=== PATIENT | female | born 1975 | race Caucasian/White ===

== ENCOUNTER 2016-05-20 08:58 | Day surgery (SDC) | payer OTHER ==
[~2016-05-20] VITALS: Ht 172.7 cm; Wt 98.0 kg
[~2016-05-20 08:58] MED LIST: 0.9% Sodium Chloride 1,000 ML IV SCH; ALPR1TAB7 PO; ARIP5TAB13 PO; BUSP15TA3 PO; CHOL200025 PO; CITA20TA PO; CITA40TA13 PO; DULO60CA42 PO; HYDR-4003 PO; IBUP-1827 PO; LAMO100T PO; LOVA20TA PO; NEOM10SO8 AFFECT_EAR; OMEP20CA11 PO; OMEP20TA24 PO; PRAM0.5T PO; PRAM0.5T3 PO; Sodium Chloride LOK Flush 10 mL Syringe IV PRN; fentaNYL-PF 50 mCg/mL 2 mL Inj IVPUSH PRN
[2016-05-20 09:32] VITALS: BP 128/84; PULSE 80; RESP 18; O2SAT 98
[2016-05-20] MEDS ORDERED: GABA600T2 PO (09:45)
[2016-05-20] MEDS ORDERED: ARIP10TA14 PO (09:45)
[2016-05-20 10:17] VITALS: BP 97/54; PULSE 75; RESP 16; O2SAT 98
[2016-05-20 10:27] VITALS: BP 116/69; PULSE 76; RESP 16; O2SAT 97
--- NOTE | 2016-05-20 10:41 | ENDO ---
[address] [address] ENDOSCOPY PROCEDURE PATIENT: ASHLEY FAY : 1975 MR#: [id number] ADMIT: 05/20/2016 JOB ID: [id number] DATE OF SERVICE: 05/20/2016 PROCEDURE PERFORMED: Colonoscopy. INDICATIONS: Patient with a personal history of colon polyps, as well as the patient has a family history of colon cancer, which includes her father who in his mid 40s from color cancer, as well as two paternal aunts who had colon cancer. ASA CLASSIFICATION: The patient's ASA classification is I. MALLAMPATI SCORE: Mallampati score was 2. MEDICATIONS: 1. Versed 4 mg. 2. Fentanyl 100 mcg. INSTRUMENT USED: PCF-H180AL. PREPARATION QUALITY: Fair. PROCEDURE DETAILS: After informed consent was obtained, the patient was brought into the GI suite, where she was placed on oxygen via nasal cannula and monitored with continuous pulse oximeter, telemetry, and blood pressure monitoring. A time-out was performed. Then, she was placed in the left lateral decubitus position and medications were administered for sedation. Digital rectal exam was performed which was unremarkable. The colonoscope was then inserted into the rectum and advanced under direct visualization to the cecum, which was identified by the presence of the ileocecal valve and appendiceal orifice. Once the cecum was reached, the colonoscope was withdrawn back into the rectum, as the mucosa and lumen were examined. In the rectum, retroflexion was performed. Following retroflexion, remaining air in the rectum was suctioned, and procedure was completed. FINDINGS: 1. Scattered diverticula were seen throughout the sigmoid colon. 2. Otherwise normal exam from rectum to cecum. IMPRESSION: Sigmoid diverticulosis. RECOMMENDATIONS: Repeat colonoscopy in five years, sooner if symptoms should dictate. COMPLICATIONS: None. ESTIMATED BLOOD LOSS: Zero.
[2016-07-28] MEDS ORDERED: CHOL200047 PO (14:55)
[2016-07-28] MEDS ORDERED: BUSP15TA3 PO (14:55)
== END 2016-05-20 23:59 | disposition home or self-care (01) ==
LOC: END 08:58
PROVIDERS: ATTEND Internal Medicine Gastroenterology
DX: Z12.11 Encounter for screening for malignant neoplasm of colon (principal); Z86.010 Personal history of colon polyps; K57.30 Diverticulosis of large intestine without perforation or abscess without bleeding; G47.33 Obstructive sleep apnea (adult) (pediatric); G25.81 Restless legs syndrome; G89.29 Other chronic pain
CPT/HCPCS: G0105; G0500; J2250; J7030

== ENCOUNTER 2016-06-29 16:57 | Observation (INO) | payer OTHER ==
[~2016-06-29] VITALS: Ht 172.7 cm; Wt 90.7 kg
[~2016-06-29 16:57] MED LIST changes: -0.9% Sodium Chloride 1,000 ML IV SCH; +ARIP10TA14 PO; -ARIP5TAB13 PO; -CITA20TA PO; +GABA600T2 PO; -NEOM10SO8 AFFECT_EAR; -OMEP20CA11 PO; -PRAM0.5T PO; -Sodium Chloride LOK Flush 10 mL Syringe IV PRN; -fentaNYL-PF 50 mCg/mL 2 mL Inj IVPUSH PRN
[2016-06-29 17:02] VITALS: BP 133/80; PULSE 87; RESP 16; O2SAT 99
[2016-06-29 18:07] LABS: BASOPHILS % (AUTO) 0.3 % (0-3); EOSINOPHILS % (AUTO) 0.4 % (0-5); MONOCYTES % (AUTO) 7.3 % (4-12); Mean Corpuscular Hemoglobin 29.6 pg (27.0-35.0); Mean Corpuscular Volume 89.3 fL (81-100); NEUTROPHILS % (AUTO) 62.4 % (40-74); Platelet Count 237 bil/L (150-400)
--- NOTE | 2016-06-29 21:01 | ED.REPORT ---
HPI-Rash / Abscess Date of Service Jun 29, 2016 ED Provider: Vaibhav Braden MD 41 year old female presents to the ER accompanied by her mother referred from the [facility] complaining of rectal pain onset a week ago. Symptoms initially felt similar to a bruise, but have worsened since onset with and area of induration that developed 5 days ago. Patient was discharged from the hospital in [place] yesterday where she received a CT that revealed a perirectal abscess, and she has been vomiting since her discharge, which she attributes to an antibiotic allergy. Earlier today she was seen by Dr. Peña at the residency clinic. Last meal was yesterday afternoon. Nursing Notes Stated Complaint: ABCESS, HEADACHE- SENT FROM [facility] Chief Complaint: Skin Rash/Abscess Nursing Notes Reviewed: Yes Allergies: Coded Allergies: erythromycin base (Verified Allergy, Severe, Anaphylaxis, 05/19/16) venom-honey bee (Verified Allergy, Severe, Anaphylaxis, 05/19/16) Penicillins (Verified Allergy, Intermediate, Anaphylaxis, 05/19/16) Sulfa (Sulfonamide Antibiotics) (Verified Allergy, Unknown, 05/19/16) rash, vomiting Uncoded Allergies: MISC (Allergy, Unknown, all penicillin derived abx, 06/29/16) Scheduled Aripiprazole (Abilify) 10 Mg Tablet 10 MG PO DAILY Buspirone (Buspirone) 15 Mg Tablet 15 MG PO BID Citalopram (Citalopram) 40 Mg Tablet 40 MG PO DAILY Duloxetine (Cymbalta) 60 Mg Capsule. 60 MG PO DAILY Gabapentin (Gabapentin) 600 Mg Tablet 600 MG PO TID Lamotrigine (Lamictal) 100 Mg Tablet 100 MG PO BID Lovastatin (Lovastatin) 20 Mg Tablet 20 MG PO HS Omeprazole Magnesium (Prilosec Otc) 20 Mg Tablet. 20 MG PO DAILY Scheduled PRN Alprazolam (Alprazolam) 1 Mg Tablet 1 MG PO TID PRN PRN For Anxiety Hydrocodone-Acetaminophen 5-325 mg (Hydrocodone-Acetaminophen 5-325 mg) 1 Each Tablet 1 TABLET PO QID PRN PRN For Pain Ibuprofen (Ibuprofen) 600 Mg Tablet 600 MG PO QID PRN PRN For Pain Miscellaneous Medications Cholecalciferol (Vitamin D3) (Vitamin D3) 2,000 Unit Tablet 2,000 UNIT PO Pramipexole Dihydrochloride (Mirapex) 0.5 Mg Tablet 0.5 MG PO General Time Seen by MD: 21:00 Chief Complaint Abscess, Tender/swollen area (Buttock) Hx Obtained From: Patient Arrived By: Walk-in Onset Occurred: 1 week ago Symptom Duration: Since onset Location: : Rectal area Quality: Painful Severity: Current: Moderate Severity: Maximum: Moderate Associated with: Reports Nausea, Reports Vomiting Pertinent Negative: Pt denies other symptoms Recent Healthcare: Recent doctor visit Past Medical History Past Medical History PTSD Bipolar OCD Sleep apnea Reports: GERD, Hyperlipidemia, Hypertension, Mental illness, Denies: Coronary artery disease, Diabetes mellitus Past Surgical History Facial bone repair Left shoulder surgery Reports: Hysterectomy, Tonsillectomy Reports: Tubal ligation Smoking History Current Every Day Smoker Social History Other Social History: Good social support Review of Systems Respiratory: Denies: Non-productive cough, Shortness of breath Cardiovascular: Denies: Chest pain GI: Reports: Nausea, Rectal pain, Vomiting, Denies: Abdominal pain Complete sys rev & neg: except as marked. Physical Exam Initial Vital Signs Vital Signs (First) Date Time Temp Pulse Resp B/P Pulse Ox O2 Delivery O2 Flow Rate FiO2 06/29/16 17:02 36.5 87 16 133/80 99 Room Air Initial VS: Reviewed Head / Eyes: Atraumatic, Normocephalic Neck: Supple, Non-tender, Full range of motion Respiratory: Breath sounds normal, Clear to auscultation, No respiratory distress Cardiovascular: Regular rate & rhythm, Heart sounds normal, Intact distal pulses Abdomen / GI: Soft, Non-tender, No guarding, No rebound, No distention Neurologic: Alert, Oriented, Nonfocal General/Constitutional: Awake, Alert, Well developed, Well nourished Skin: Warm, Dry, Intact Abscess #1 Location/Condition: Positive: Perirectal... (Left) Interpretation & Diagnostics Lab Results Interpretation Result Diagram: 06/29/162 06/29/161751 Test 06/29/16 17:52 White Blood Count 11.6th/mm3 (3.8-10.1) Red Blood Count 4.67mil/mm3 (3.90-5.20) Hemoglobin 13.8g/dL (12.0-15.6) Hematocrit 41.7% (35.0-46.0) Mean Corpuscular Volume 89.3fL (81-100) Mean Corpuscular Hemoglobin 29.6pg (27.0-35.0) Mean Corpuscular Hemoglobin Concent 33.1% (32.0-37.0) Red Cell Distribution Width 13.0% (12.3-15.4) Platelet Count 237bil/L (150-400) Neutrophils (%) (Auto) 62.4% (40-74) Lymphocytes (%) (Auto) 29.2% (14-46) Monocytes (%) (Auto) 7.3% (4-12) Eosinophils (%) (Auto) 0.4% (0-5) Basophils (%) (Auto) 0.3% (0-3) Sodium Level 138mEq/L (134-144) Potassium Level 3.9mEq/L (3.5-5.2) Chloride Level 101mEq/L (97-108) Carbon Dioxide Level 27mmol/L (18-29) Blood Urea Nitrogen 7mg/dL (6-20) Creatinine 0.69mg/dL (0.57-1.00) Estimat Glomerular Filtration Rate 136mL/min (>59) Glucose Level 91mg/dL (60-99) Calcium Level 9.1mg/dL (8.5-10.1) Magnesium Level 2.0mg/dL (1.6-2.6) Total Bilirubin 0.4mg/dL (0.0-1.2) Aspartate Amino Transf (AST/SGOT) 12U/L (0-50) Alanine Aminotransferase (ALT/SGPT) 9U/L (0-32) Alkaline Phosphatase 76U/L (25-150) Total Protein 6.9g/dL (6.4-8.4) Albumin 4.0g/dL (3.4-5.0) Hold Alvarado Top Tube Received (Received) Re-Eval/Medical Decision Source of Hx: Old records Re-Evaluation/Progress : Time of Eval: 21:08 Re-Evaluation/Progress Note: Discussed lab results. Completed physical examination. Discussed findings and plan to be seen by Surgeon. Consultation : Referral / Consult Name: Sherman Victor MD Consulted With: Surgeon Call Returned at: 21:35 Business Trainer: Accepts admit Note: Accepts admit and will see patient in the morning. Counseled Regarding: Diagnosis, Lab results, Need for admission Discharge & Departure Impression: Primary Impression: Perirectal abscess Disposition: ADMITTED TO HOSPITAL Discharge Condition All VS Reviewed: Yes Condition: Stable Referrals: Raz Thibodeaux DO (PCP) Gerald Attestation Portions of this note were transcribed by Ziggy Donahue. I, Dr. Braden, personally performed the history, physical exam and medical decision-making; I reviewed and confirmed the accuracy of the information in the transcribed note. Signed by: Gerald Monsalve, 06/29/2016 and 21:47 copies to: Raz Thibodeaux Kirk H MD Jun 29, 2016 21:01 ZIGGY DONAHUE Jun 29, 2016 21:14
[2016-06-29] MEDS ORDERED: HYDROmorphone 1 mg/mL Inj IVPUSH ONE ×2 (21:15→21:55)
[2016-06-29] MEDS ORDERED: Ondansetron 2 mg/mL 2 mL Inj IVPUSH ONE (21:15)
[2016-06-29] MEDS ORDERED: 0.9% Sodium Chloride 1,000 ML IV ONE (21:15)
[2016-06-29] MEDS ORDERED: HYDROmorphone PCA 0.2 mg/mL 30 mL Inj IV PRN (21:55)
[2016-06-29] MEDS ORDERED: TOPI-59 PO (22:19)
[2016-06-29 22:23] VITALS: BP 127/78; PULSE 75; O2SAT 97
[2016-06-29] MEDS ORDERED: LAMO150T2 PO (22:29)
[2016-06-29] MEDS ORDERED: IMI25 PO (22:29)
[2016-06-29] MEDS ORDERED: ARIP5TAB20 PO (22:29)
[2016-06-29] MEDS ORDERED: ALBU8.5H2 INHALATION (22:29)
[2016-06-29] MEDS ORDERED: PRAZ2CAP2 PO (22:29)
[2016-06-29 22:30] VITALS: BP 127/78; PULSE 75; O2SAT 97
[2016-06-29 23:02] VITALS: BP 116/81; PULSE 77; RESP 20; O2SAT 97
[2016-06-29] MEDS: Ondansetron 2 mg/mL 2 mL Inj IVPUSH PRN (23:02)
[2016-06-29] MEDS: 0.9% Sodium Chloride 1,000 ML IV SCH (23:03)
[2016-06-29 23:30] VITALS: RESP 16; O2SAT 98
[2016-06-30] VITALS (19 sets, daily range): BP systolic 96–132; BP diastolic 6–87; PULSE 64–92; RESP 14–20; O2SAT 94–99
[2016-06-30] MEDS: Ondansetron 2 mg/mL 2 mL Inj IVPUSH PRN (02:55)
[2016-06-30] MEDS: MetoCLOpramide 5 mg/mL 2 mL Inj IVPUSH PRN ×2 (04:20→11:54)
--- NOTE | 2016-06-30 04:55 | NUR ---
Admit Pt admitted from ER to [facility] Rm 1019 at 2300. Pt alert/oriented x4, able to ambulate to bed, steady on feet. Pt was oriented to room, call light and watched the orientation video. Pt reporting pain up to 7/10 to left buttocks. Tricia-rectal abscess with bruise, swelling, erythema observed near gluteal cleft on left side extending to perineum. Dilaudid CUSHION WORKER set up for pt at 0.2mg/10min/1.2mg total. Pt reporting this to be effective for pain. Upon arrival pt vomited in bathroom, light rust in color. Pt given Zofran 4mg IV and ate dinner (which family brought) and within 30 min pt vomited again, reporting the taste of blood and darker rust pieces seen in emesis. Sample sent for gastric occult test, which came back positive. Pt made NPO at midnight. Pt continued to vomit, Zofran 8mg IV not effective for nausea/vomiting. Call made to MD with findings, MD ordered Reglan 10mg IV q6. Pt given medication and has since been resting, eyes closed. Wearing SCDs. Continue close monitoring.
[2016-06-30] MEDS ORDERED: Linezolid Inj 600 MG in IV Premix 1 EACH IV SCH (08:30)
[2016-06-30] MEDS ORDERED: metroNIDAZOLE Inj 500 MG in IV Premix 1 EACH IV SCH (08:50)
[2016-06-30] MEDS ORDERED: Ondansetron 2 mg/mL 2 mL Inj IVPUSH PRN ×2 (08:50→15:05)
[2016-06-30] MEDS ORDERED: levoFLOXacin Inj 750 MG in IV Premix 1 EACH IV SCH (08:50)
--- NOTE | 2016-06-30 09:31 | HP ---
[address] [address] HISTORY AND PHYSICAL PATIENT: ASHLEY FAY : 1975 MR#: [id number] ADMIT: 06/29/2016 JOB ID: [id number] CHIEF COMPLAINT: Left-sided perianal abscess. HISTORY OF PRESENT ILLNESS: The patient is a 41-year-old female who was admitted through the emergency department last night for complaint of a perianal abscess. She tells me that eight days ago she felt like she had a bruise on the left buttock just lateral to the anus. Over the following day, this became increasingly firm and then five days ago it became quite painful. On the evening of the , she presented to [facility] Emergency Department where a CT scan was obtained which I personally reviewed, and confirmed the presence of a small perianal abscess. She tells me that the ED physician aspirated the abscess and reported to her that he removed 30 cc of purulent material. The next day, however, she was feeling terrible with nausea, vomiting and worsening pain. She called the emergency department and was told to seek medical attention from her primary care provider. Her primary care provider then referred her to our emergency department. Today, she was found to have a leukocytosis of 11.6. She was otherwise afebrile and hemodynamically normal. She was admitted on IV linezolid to the General Surgery service. This morning, she tells me that she is feeling exhausted but otherwise okay. She describes the pain as 5/10. She has never experienced a perianal abscess before. The patient did not tell me that according to our records she has a strong family history of colon cancer with a father who at age 40. She underwent a colonoscopy on May 20 which showed scattered diverticula but no other abnormalities. PAST MEDICAL HISTORY: 1. PTSD. 2. Bipolar. 3. OCD. 4. Sleep apnea. 5. Restless legs syndrome. 6. GERD. 7. Hyperlipidemia. 8. Hypertension. PAST SURGICAL HISTORY: 1. Facial bone repair. 2. Left shoulder surgery. 3. Hysterectomy. 4. Tonsillectomy. 5. Tubal ligation. MEDICATIONS: Current medications are reviewed. ALLERGIES: The patient has multiple allergies listed including allergies to PENICILLIN, SULFA and ERYTHROMYCIN. SOCIAL HISTORY: She lives in some kind of mission in [place]. She does not work. She smokes 3-4 cigarettes per day. She does not drink alcohol. FAMILY HISTORY: Family history is reviewed and significant for colon cancer in the father. She also tells me that her father had an GA at age 53 so the history is a little bit confused. REVIEW OF SYSTEMS: Eleven point review of systems is obtained and as per the HPI. Otherwise negative. PHYSICAL EXAMINATION: Vital signs: She is afebrile with temperature 36.4 degrees, heart rate of 85 beats per minute. Blood pressure is 104/64, satting 97% on room air with a respiratory rate of 18 breaths per minute. In general, she appears comfortable, in no acute distress. Cardiovascular: She has a regular rate and rhythm with no appreciated murmurs, rubs, gallops. Pulmonary: Lungs clear to auscultation. Cardiovascular: She has no carotid bruit. Neck: She has no thyromegaly. Lymphs: She has no cervical lymphadenopathy. GI: Her abdomen is soft, nontender, nondistended. Extremities: Warm without significant edema. Skin is warm without rash. Neuro is grossly intact. Psych is pleasant and appropriate. Inspection of the perianal area demonstrates significant ecchymosis and some swelling in the left perianal area. There is induration and tenderness suggestive of an underlying abscess. IMAGING: CT scan from [facility] is personally reviewed and shows a left perianal abscess. LABORATORIES: White blood cell count yesterday was 11.6, hematocrit was 41.7, platelet count was 237, creatinine is 0.69. ASSESSMENT AND PLAN: This is a 41-year-old female with a left perianal abscess. I am going to switch the patient from linezolid to oral Levaquin and Flagyl as this will make an easy transition to outpatient antibiotic regimen. I recommend examination under anesthesia with incision and drainage of the abscess. I discussed the possibility of an anal fistula and the need for a seton. The patient understands and agrees to proceed. This will be done this afternoon as soon as there is availability.
[2016-06-30] MEDS: levoFLOXacin 750 mg Tablet PO SCH (10:01)
[2016-06-30] MEDS: 0.9% Sodium Chloride 1,000 ML IV SCH (10:02)
--- NOTE | 2016-06-30 10:49 | NUR ---
Social Work- Initial Assessment Data: Pt is a 41 year old female admitted 06/29/16 for perirectal abscess per H&P. Pt's insurance is [employer] and PCP is Raz Thibodeaux DO. SW met with pt at bedside to discuss discharge plan, SW role explained. Pt was alert and oriented x3. Pt resides in [place] with her pastors where she remains independent with her ADLs. Pt does not use DME and drives. Pt has no HH or SNF experience, no LTC insurance or VA benefits. SW spoke with pt about DPOA, left paperwork to be completed. SW left phone number and plan on board. Pt to discharge home with mother to transport via POV. No anticipated discharge needs. SW will continue to follow as needs arise. Assessment: Pt who is independent at base. Plan: Pt to discharge home with mother to transport via POV. No anticipated discharge needs. SW will continue to follow as needs arise. Alejandra Rodriguez, WHITE METAL CASTER
[2016-06-30] MEDS ORDERED: Albuterol 2.5 mg/3 mL Inhalation Solution NEB PRN (11:00)
[2016-06-30] MEDS ORDERED: fentaNYL-PF 50 mCg/mL 2 mL Inj ONE (11:43)
[2016-06-30] MEDS ORDERED: Propofol 10,000 mCg/mL 20 mL Inj ONE (11:43)
[2016-06-30] MEDS ORDERED: Succinylcholine Chloride 20 mg/mL 5 mL Inj ONE (11:43)
[2016-06-30] MEDS ORDERED: Ondansetron 2 mg/mL 2 mL Inj ONE (11:43)
[2016-06-30] MEDS ORDERED: Rocuronium 10 mg/mL 5 mL Inj ONE (11:43)
--- NOTE | 2016-06-30 13:18 | NUR ---
Nausea and vomiting P: Patient threw up 300cc in a blue bag and was feeling nauseous I: Patient was given Reglan E: Patient stated she was feeling better. Doctor notified.
[2016-06-30] MEDS ORDERED: Lactated Ringer's 1,000 ML IV ONE ×2 (14:30→14:46)
--- NOTE | 2016-06-30 14:41 | PCM.HPANE ---
Patient Data Surgeon Admitting Provider:Sherman Victor MD Attending Provider:Sherman Victor MD Primary Care Physician:Raz Thibodeaux DO Other Provider:Macey Garcia Anesthesia Reason for Visit Perirectal Abscess Ht/WT & BMI Height (Feet): 5 Height (Inches): 8.00 Weight (Kilograms): 90.700 Body Mass Index 30.31 Allergies Coded Allergies: erythromycin base (Verified Allergy, Severe, Anaphylaxis, 05/19/16) venom-honey bee (Verified Allergy, Severe, Anaphylaxis, 05/19/16) Penicillins (Verified Allergy, Intermediate, Anaphylaxis, 05/19/16) Sulfa (Sulfonamide Antibiotics) (Verified Allergy, Unknown, 05/19/16) rash, vomiting Uncoded Allergies: MISC (Allergy, Unknown, all penicillin derived abx, 06/29/16) Past Anesthesia History Anesthesia History: Denies:: Abnormal Airway, Anesthesia Reactions, Difficult Intubation, Fam Anesthesia Reaction, Fam Malignant Hypertherm, Malignant Hyperthermia Diabetes History Hx Diabetes?: No MRSA MRSA: No Medications Blood Thinner: Aspirin Hypertension Medication: No Home Meds Incl Beta Getachew: No Active Scripts Hydrocodone-Acetaminophen 5-325 mg 1 Each Tablet1 Tablet PO QID PRN For Pain # 10 TABLET Ref 0 Prov:Tashi Potter PAC 12/25/15 Reported Medications Albuterol HFA (Proair HFA)8.5 Gm Hfa.aer.ad2 Puffs INHALATION Q4H PRN For Shortness of Breath #1 INHALER 06/29/16 Sumatriptan (Imitrex)25 Mg [id number] Mg PO DAILY PRN Headache 06/29/16 Prazosin 2 Mg Capsule2 Mg PO HS 06/29/16 Aripiprazole 5 Mg Tablet5 Mg PO DAILY 06/29/16 Lamotrigine 150 Mg [id number] Mg PO DAILY Ref 0 06/29/16 Topiramate 25 Mg Kaqbtg05 Mg PO DAILY Ref 0 06/29/16 Gabapentin 600 Mg Fdzeyh151 Mg PO BID Ref 0 05/20/16 Omeprazole Magnesium (Prilosec Otc)20 Mg Tablet.dr20 Mg PO QAM #1 PKG Ref 0 05/19/16 Pramipexole Dihydrochloride (Mirapex)0.5 Mg Tablet0.5 Mg PO HS 05/19/16 Lovastatin 20 Mg Xygrql70 Mg PO HS #30 TABLET Ref 0 05/19/16 Ibuprofen 600 Mg Axrctv873 Mg PO DAILYWL Ref 0 05/19/16 Cholecalciferol (Vitamin D3) (Vitamin D3)2,000 Unit Tablet2,000 Unit PO DAILY 05/19/16 Duloxetine (Cymbalta)60 Mg Capsule.dr60 Mg PO BID Ref 0 05/19/16 Citalopram 40 Mg Fmbnuh14 Mg PO DAILY 30 Days Ref 0 05/19/16 Alprazolam 1 Mg Tablet1 Mg PO BID Ref 0 05/19/16 Discontinued Reported Medications Aripiprazole (Abilify)10 Mg Wxoyze01 Mg PO DAILY Ref 0 05/20/16 Buspirone 15 Mg Bohjaf44 Mg PO BID Ref 0 05/19/16 Lamotrigine (Lamictal)100 Mg Zmkqzd745 Mg PO BID 30 Days Ref 0 12/25/15 History History of ENT Problems?: No HEENT History: Denies:: Abnormal Airway Difficult Intubation Dysphagia Hearing Problem Other HEENT Pertinent History: nasal surgery, no metal Hx of Heart Problems?: Yes Cardiovascular History: Denies:: AICD Atrial Fibrillation Chest Pain Congestive Heart Failure Hypertension Pacemaker Valvular Heart Disease Hx of Respiratory Problem?: No Respiratory History: Denies:: Asthma COPD Cough Hemoptysis Pneumonia Tuberculosis Other Resp Pertinent History: bronchitis, rescue inhaler Hx Neurologic Problems?: Yes Neurological History: Positive for:: Headaches Denies:: CVA Dementia Hx of GI Problems?: Yes Gastrointestinal History: Positive for:: Gastroesphageal Reflux Denies:: Cirrhosis Diverticulitis Gastrointestinal Bleeding Heartburn Hepatitis Hiatal Hernia Rectal Bleeding Other GI Pertinent History: diverticulitis Hx of Problems?: No Genitourinary History: Denies:: Kidney Stones Urinary Tract Infection Female Hx: Denies:: Currently Endometriosis Pelvic Inflammatory Problems with Breasts? Hx Musculoskeletal Problems?: Yes Musculoskeletal History: Denies:: Back Injury Joint Replacement Musculoskeletal Trauma Hx of Psycho/Social Problems?: Yes Psycho Social History: Positive for:: Anxiety Bipolar Disorder Hx Depression Denies:: Suicide Attempt Other Psych Pertinent History: PTSD, OCD Hx Surgeries?: Yes (L facial, cx ablation x's 3, partial hyst, TL, tonsils) Hx Any Other Health Problems?: Yes Other History: Positive for:: Hospitalization Denies:: Cancer Thyroid Disease History Blood Transfusions: Positive for:: Accept Blood Products? Denies:: Blood Transfuse Reaction Blood Transfusions Hx Diabetes: No Hx Alcohol Use: YesAlcoholic Drinks Per Day: over 5 yrs soberHx Substance Use : No Smoking Status: Current Every Day Smoker Approx How Many Cigarettes/day: 05/04 Stop/Bang Treated for Sleep Apnea?: Yes Do You Have a CPAP Machine?: No (did not bring) S-Snoring: Do You Snore Loudly: No T-Tired: feel tired, fatigued: Yes O-Obsered: Observed not breath: No P-Blood Pressure: treated: No B- Body Mass Index > 35 kg/m2: No A- Age over 50: No N- Neck Large Circumference: No G- Gender Male: No SHELIA Total Score: 1 SHELIA Risk Assessment: High Risk, =/>3 Yes Risk Assessment Category Category 1A: Patient has history of documented sleep apnea, and HAS NOT received any narcotic, sedative or anesthesia administration during this stay. Category 1B: Patient has history of documented sleep apnea, and HAS received any narcotic , sedative or anesthesia administration during this stay Category 2: Patient has SUSPECTED Obstructive Sleep Apnea, and HAS received any narcotic , sedative or anesthesia administration during this stay. Category 3: Patient has SUSPECTED Obstructive Sleep Apnea and HAS NOT received narcotic, sedative or anesthesia administration during this stay. Category 4: Outpatient in Procedural Areas with known sleep apnea or who screen positive for High Risk via the STOP/BANG questionnaire. Exam Exam Vital Signs Vital Signs Date Time Temp Pulse Resp B/P Pulse Ox O2 Delivery O2 Flow Rate FiO2 06/30/16 12:44 36.7 64 18 96/65 98 Room Air 06/30/16 08:30 36.4 85 18 104/61 97 Room Air General Appearance: Alert, Oriented X3, Cooperative, No Acute Distress HEENT/AIRWAY: MP 2 Lungs: Clear to Auscultation, Normal Air Movement Heart: Exam Unremarkable, Regular Rate/Rhythm, No Murmurs/Rubs/Gallops Meds/Labs/Diagnostics Admission Meds Current Medications Ketorolac Tromethamine (Toradol Inj) 30 mg ONCE ONCE IVPUSH Last administered on 06/29/16t 21:29; Start 06/29/16 at 21:15; Stop 06/29/16 at 21:16; Status DC Hydromorphone HCl (Dilaudid Inj) 1 mg ONCE ONCE IVPUSH Last administered on 21:28; Start 06/29/16 at 21:15; Stop 06/29/16 at 21:16; Status DC Ondansetron HCl 4 mg 4 mg ONCE ONCE IVPUSH Last administered on 06/29/16 21: 29; Start 06/29/16 at 21:15; Stop 06/29/16 at 21:16; Status DC Sodium Chloride (Normal Saline) 1,000 ml @ 0 mls/hr Q0M ONCE IV Last administered on 06/29/16 21:28; Start 06/29/16 at 21:15; Stop 06/29/16 at 21:16 ; Status DC Hydromorphone HCl 1 mg 1 mg ONCE ONCE IVPUSH Last administered on 06/29/16 22 :21; Start 06/29/16 at 21:55; Stop 06/29/16 at 21:56; Status DC Sodium Chloride (Normal Saline) 1,000 ml @ 100 mls/hr Q10H IV Last administered on 06/30/16 10:02; Start 06/29/16 at 21:54 Levofloxacin (Levaquin) 750 mg DAILYAC PO Last administered on 06/30/16 10:01; Start 06/30/16 at 09:05 Metronidazole HCl (Flagyl) 500 mg Q8 PO Last administered on 06/30/16 10:01; Start 06/30/16 at 09:05 Labs Test 06/29/16 17:52 White Blood Count 11.6th/mm3 (3.8-10.1) Red Blood Count 4.67mil/mm3 (3.90-5.20) Hemoglobin 13.8g/dL (12.0-15.6) Hematocrit 41.7% (35.0-46.0) Mean Corpuscular Volume 89.3fL (81-100) Mean Corpuscular Hemoglobin 29.6pg (27.0-35.0) Mean Corpuscular Hemoglobin Concent 33.1% (32.0-37.0) Red Cell Distribution Width 13.0% (12.3-15.4) Platelet Count 237bil/L (150-400) Neutrophils (%) (Auto) 62.4% (40-74) Lymphocytes (%) (Auto) 29.2% (14-46) Monocytes (%) (Auto) 7.3% (4-12) Eosinophils (%) (Auto) 0.4% (0-5) Basophils (%) (Auto) 0.3% (0-3) Sodium Level 138mEq/L (134-144) Potassium Level 3.9mEq/L (3.5-5.2) Chloride Level 101mEq/L (97-108) Carbon Dioxide Level 27mmol/L (18-29) Blood Urea Nitrogen 7mg/dL (6-20) Creatinine 0.69mg/dL (0.57-1.00) Estimat Glomerular Filtration Rate 136mL/min (>59) Glucose Level 91mg/dL (60-99) Calcium Level 9.1mg/dL (8.5-10.1) Magnesium Level 2.0mg/dL (1.6-2.6) Total Bilirubin 0.4mg/dL (0.0-1.2) Aspartate Amino Transf (AST/SGOT) 12U/L (0-50) Alanine Aminotransferase (ALT/SGPT) 9U/L (0-32) Alkaline Phosphatase 76U/L (25-150) Total Protein 6.9g/dL (6.4-8.4) Albumin 4.0g/dL (3.4-5.0) Hold Alvarado Top Tube Received (Received) Plan Impression Patient chart reviewed, patient interviewed and anesthestic plan with risks, benefits, and alternatives discussed, and informed consent obtained. ASA Physical Status: ASA2 Mod Systemic Disease Anesthetic Plan: GA Bene/Risks/Altern/Consents: Yes HP Complete Prior to Induction: Yes Raz Yip MD Jun 30, 2016 14:32
[2016-06-30] MEDS ORDERED: Lactated Ringer's 500 ML IV PRN (15:01)
[2016-06-30] MEDS ORDERED: Lactated Ringer's 1,000 ML IV SCH (15:01)
[2016-06-30] MEDS ORDERED: Labetalol 5 mg/mL 4 mL Inj IV PRN (15:05)
[2016-06-30] MEDS ORDERED: EPHEDrine Sulfate 50 mg/mL Inj IVPUSH PRN (15:05)
[2016-06-30] MEDS ORDERED: HYDROmorphone 1 mg/mL Inj IVPUSH PRN (15:05)
[2016-06-30] MEDS ORDERED: Phenylephrine 10,000 mCg/mL Inj IVPUSH PRN (15:05)
[2016-06-30] MEDS ORDERED: MetoCLOpramide 5 mg/mL 2 mL Inj IVPUSH PRN (15:05)
[2016-06-30] MEDS ORDERED: Atropine 0.4 mg/mL Inj IVPUSH PRN (15:05)
[2016-06-30] MEDS ORDERED: hydrALAZINE 20 mg/mL Inj IVPUSH PRN (15:05)
[2016-06-30] MEDS ORDERED: Bupivacaine-MPF 0.25%/EPI 30 mL Inj INJ ONE (15:06)
--- NOTE | 2016-06-30 15:38 | PCM.ANEP1 ---
Post Anesthesia Phase 1 PACU Phase 1 Assessment Vital Signs Vital Signs Date Time Temp Pulse Resp B/P Pulse Ox O2 Delivery O2 Flow Rate FiO2 06/30/16 12:44 36.7 64 18 96/65 98 Room Air 06/30/16 08:30 36.4 85 18 104/61 97 Room Air Anesthetic Administered: GA Level of Alertness: Awake, talking LEONE's with Equal Strength: Yes Pain: No (RN awares) Nausea or Vomiting: No Oxygen Delivery: Simple Mask Lungs: Clear to Auscultation, Normal Air Movement Summary VSS Raz Yip MD Jun 30, 2016 15:38
--- NOTE | 2016-06-30 15:38 | PCM.ANEP2 ---
Post Anesthesia Evaluation ASA/CMS Post Anesthesia VS in Patient's Normal Range?: Yes Resp Stable; Airway Patent?: Yes CV Function & Hydration Stable: Yes Mental Status Recovered?: Yes Pain control Satisfactory?: Yes N/V Control Satisfactory?: Yes Raz Yip MD Jun 30, 2016 15:38
[2016-06-30] MEDS: fentaNYL-PF 50 mCg/mL 2 mL Inj IVPUSH PRN ×2 (15:55→16:00)
[2016-06-30] MEDS ORDERED: Influenza (Adult) Vaccine 0.5 mL Syringe IM ONE (17:45)
--- NOTE | 2016-06-30 18:40 | OP ---
[address] [address] OPERATIVE REPORT PATIENT: ASHLEY FAY : 1975 MR#: [id number] ADMIT: 06/29/2016 JOB ID: [id number] DATE OF SURGERY: 06/30/2016 ANESTHESIA: General. PREOPERATIVE DIAGNOSIS(ES): Left perirectal abscess. POSTOPERATIVE DIAGNOSIS(ES): Left perirectal rectal abscess (likely superinfected hematoma). OPERATION: Incision and drainage of left perirectal abscess. SURGEON: Noel Charlton MD HEDIS COORDINATOR: None. COMPLICATIONS: None. ESTIMATED BLOOD LOSS: Minimal. CONDITION: Satisfactory. PATHOLOGY: Culture was sent. FINDINGS: In the left lateral position from the anus there was a firm mass. This was opened and contained mostly blood, but some pus. She has also had bruising in the soft tissue overlying her left ischium. INDICATIONS/SIGNIFICANT HISTORY: The patient is a 41-year-old female who has been complaining of left perianal pain for just over a week. She tells me that she it originally felt like a bruise. This became increasingly painful and indurated, prompting a visit to an outside emergency facility, where a CT scan was consistent with an abscess. Reportedly this was aspirated. She was discharged home, but then had worsening pain, and eventually ended up in our emergency department. OPERATIVE TECHNIQUE: The patient was taken to the operating room and placed in supine position. General anesthesia was administered and she was placed in lithotomy. She was already on broad-spectrum antibiotics. The perineum was prepped and draped in standard surgical fashion and a procedure pause was performed. I began with a digital rectal exam, which was unremarkable. I then inserted a speculum into the anus and inspected the anal mucosa, which again was unremarkable. I then palpated the area of induration to the left of the anus. I made a small incision in this and bluntly entered a cavity which contained mostly dark blood but also some pus. This was irrigated out. I then placed a quarter-inch [place] drain into the cavity and secured this to the skin using 3-0 nylon. The case was then concluded.
--- NOTE | 2016-06-30 19:10 | NUR ---
Back from OR Pt. returned to room at 1635. Reports pain as tolerable. Pt. attempted to eat some jello and juice around 1730, but had nausea and vomiting. Gave 8 mg zofran. Pt. continued to vomit. Gave 10 mg reglan a bit later and this helped. Held off on PO antibiotic until nausea/vomiting under control.
[2016-06-30] MEDS: HYDROmorphone 0.5 mg/0.5 mL iSecure Syringe IVPUSH PRN (20:16)
[2016-06-30] MEDS: DULoxetine 30 mg DR Capsule PO SCH (21:08)
[2016-07-01] MEDS: HYDROmorphone 0.5 mg/0.5 mL iSecure Syringe IVPUSH PRN (04:06)
--- NOTE | 2016-07-01 04:13 | NUR ---
Pain Patient A&OX3,and pleasant. Complained of 6/10 jesus-rectal pain at the beginning of shift. 0.5mg dilaudid IVP was given. Upon reassessment patient stated not much difference in pain level. Shortly after evening medications were given patient feel asleep. Patient has been able to sleep through the most of the night. Another dose of 0.5mg dilaudid IVP was given at 0415 for 7/10 jesus-rectal pain. Will continue to monitor, and continue Q1 hour checks.
[2016-07-01 04:20] VITALS: BP 111/69; PULSE 102; RESP 16; O2SAT 93
--- NOTE | 2016-07-01 04:23 | NUR ---
Medication Time/ Flagyl Due to patient experiencing nausea and actively vomiting, day shift nurse was not able to give dose of PO flagyl on time. Once patients vomiting subsided PO flagyl was given at 2107. Pharmacy notified, and retimed medication. Care continues.
[2016-07-01 07:59] VITALS: PULSE 88; RESP 16; O2SAT 94
[2016-07-01] MEDS: DULoxetine 30 mg DR Capsule PO SCH (08:06)
[2016-07-01] MEDS: levoFLOXacin 750 mg Tablet PO SCH (08:06)
[2016-07-01 08:17] VITALS: BP 110/69; PULSE 84; RESP 16; O2SAT 96
[2016-07-01] MEDS ORDERED: HYDROcodone-APAP 5-325 mg Tablet PO PRN (08:30)
[2016-07-01] MEDS ORDERED: lamoTRIgine 100 mg Tablet PO SCH (08:30)
[2016-07-01] MEDS ORDERED: LEVO750T9 PO (08:31)
[2016-07-01] MEDS ORDERED: METR500T PO (08:31)
--- NOTE | 2016-07-01 08:36 | PCM.DISURG ---
Surgical Discharge Instruction Date of Service Jul 01, 2016 Dates of Hospitalization Date of Hospital Admission Jun 29, 2016 at 22:24 Providers Admitting Physician: Sherman Victor MD Primary Care Physician: Raz Thibodeaux DO Attending Physician: Sherman Victor MD Discharge Diagnosis Discharge Diagnosis Perirectal abscess Post Operative diagnosis Perirectal abscess s/p I&D Diet Discharge Diet: No restrictions Activity Discharge Activity-General: No restrictions, Be up and about, Balance rest and activity, Activity as pain allows, Activity as energy allows, No driving while taking narcotic Dressing and Incisional Care Dressing Care: Other (Soak in tub for 20 minutes twice a day following bowel movements for 1 week) Hygiene: May shower Additional Instructions Discharge Instructions Soak in the tub for 20 minutes twice per day following Bowel movements. We will make an appointment in 1-2 weeks at the general surgery office to remove your drain Additional Instructions -Please take your entire course of antibiotics until the bottle is empty. -You may want to purchase a Probiotic supplement, or eat natural yogurt, sourkraut, kimchee, or other live culture food in order to replenish the good bacteria in your gut which will be killed by your anti-biotics. -Please minimize your pain medication usage as much as possible as this will tend to make you constipated which would be very uncomfortable for your with your healing incision. Follow Up Plan Follow Up Plan Follow up in 1-[address] Noel Charlton to remove your drain. Follow-up Provider (F9): Noel hCarlton MD Follow-up appointment: Weeks (1-2) Call your provider for: Fever, Chills, Shortness of breath, Increasing abdominal pain, Nausea, Vomiting, Wound redness, Increasing wound pain, Warmth to touch Sherman Rosales DO Jul 01, 2016 08:36
--- NOTE | 2016-07-01 08:44 | PCM.DC.SUR ---
Discharge Summary Date of Service: Jul 01, 2016 Date of Hospital Admission: Jun 29, 2016 at 22:24 Date of Discharge: 07/01/16 Diagnosis at Time of Discharge Perirectal abscess s/p Incision and drainage Problems: Operation Incision and drainage of perirectal abscess Brief History and Physical: Taken from History and Physical composed by Dr. Noel Charlton on 06/30/16 The patient is a 41-year-old female who was admitted through the emergency department last night for complaint of a perianal abscess. She tells me that eight days ago she felt like she had a bruise on the left buttock just lateral to the anus. Over the following day, this became increasingly firm and then five days ago it became quite painful. On the evening of the , she presented to [facility] Emergency Department where a CT scan was obtained which I personally reviewed, and confirmed the presence of a small perianal abscess. She tells me that the ED physician aspirated the abscess and reported to her that he removed 30 cc of purulent material. The next day, however, she was feeling terrible with nausea, vomiting and worsening pain. She called the emergency department and was told to seek medical attention from her primary care provider. Her primary care provider then referred her to our emergency department. Today, she was found to have a leukocytosis of 11.6. She was otherwise afebrile and hemodynamically normal. She was admitted on IV linezolid to the General Surgery service. This morning, she tells me that she is feeling exhausted but otherwise okay. She describes the pain as 5/10. She has never experienced a perianal abscess before. The patient did not tell me that according to our records she has a strong family history of colon cancer with a father who at age 40. She underwent a colonoscopy on May 20 which showed scattered diverticula but no other abnormalities. PE at time of DC GEN: A/O x3 pleasant cooperative woman in NAD HEENT: EOMI, PERRL, no conjunctival pallor Neck: Supple, full ROM CV: RRR, no murmurs rubs or gallops Resp: Lungs CTA BL Abdomen: Soft, non-tender, no organomegaly Extr: Healing perianal abscess on left buttock with drain sutured in place Neuro: CN 2-12 grossly intact, no focal neurologic deficit. Hospital Course: The patient was referred from the [facility] clinic and presented to the ER on 06/29/16 where she was found to have a perirectal abscess on the left buttock. She was initially started on Linezolid in the ED which was then changed to Levaquin and Metronidazole the following day. She underwent I&D on 06/30/16, the procedure was uncomplicated and is outlined in the operative note. Post op recovery was complicated by some nausea and vomiting which was managed with Zofran, and much improved on the day of discharge. The patient was given instructions on incisional care and follow up, and then discharged back to her previous living situation with a community claims representative. Pathology: Abscess drainage cultured out scant gram positive cocci following 2 days of antibiotics Disposition: Home with no needs Follow-up Plan: Follow up with Dr. Noel Charlton in 1-2 weeks for re-evaluation and drain removal Albuterol HFA (Proair HFA) 8.5 Gm Hfa.aer.ad 2 PUFFS INHALATION Q4H PRN PRN For Shortness of Breath (Reported) Alprazolam (Alprazolam) 1 Mg Tablet 1 MG PO BID (Reported) Aripiprazole (Aripiprazole) 5 Mg Tablet 5 MG PO DAILY (Reported) Cholecalciferol (Vitamin D3) (Vitamin D3) 2,000 Unit Tablet 2,000 UNIT PO DAILY (Reported) Citalopram (Citalopram) 40 Mg Tablet 40 MG PO DAILY (Reported) Duloxetine (Cymbalta) 60 Mg Capsule.dr 60 MG PO BID (Reported) Gabapentin (Gabapentin) 600 Mg Tablet 600 MG PO BID (Reported) Hydrocodone-Acetaminophen 5-325 mg (Hydrocodone-Acetaminophen 5-325 mg) 1 Each Tablet 1 TABLET PO QID PRN PRN For Pain Ibuprofen (Ibuprofen) 600 Mg Tablet 600 MG PO DAILYWL (Reported) Lamotrigine (Lamotrigine) 150 Mg Tablet 150 MG PO DAILY (Reported) Levofloxacin (Levaquin) 750 Mg Tablet 750 MG PO DAILYAC Lovastatin (Lovastatin) 20 Mg Tablet 20 MG PO HS (Reported) Metronidazole (Flagyl) 500 Mg Tablet 500 MG PO Q8H Omeprazole Magnesium (Prilosec Otc) 20 Mg Tablet.dr 20 MG PO QAM (Reported) Pramipexole Dihydrochloride (Mirapex) 0.5 Mg Tablet 0.5 MG PO HS (Reported) Prazosin (Prazosin) 2 Mg Capsule 2 MG PO HS (Reported) Sumatriptan (Imitrex) 25 Mg Tablet 25-50 MG PO DAILY PRN PRN Headache (Reported ) Topiramate (Topiramate) 25 Mg Tablet 25 MG PO DAILY (Reported) copies to: Raz Thibodeaux David E DO Jul 01, 2016 08:44
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
--- NOTE | 2016-07-01 11:48 | NUR ---
Discharge Patient denied chest pain, N/V, SOB at time of discharge. Patient had ABD pad in place that was C/D/I. Pt had dried serosanginous drainage on skin around buttocks. [place] drain left in place and will be removed at her follow up appt. Pt given extra ABD pads to use at home and given care instructions. Patient discharging to home. Pt did not want a wheel chair so we walked her out to her car. Gait was steady. Her mother is driving her. Patient was given all discharge information and instructions and indicated verbal understanding. Patient was also given the 2 scripts for antibiotics and said she will get them filled today. Addendum: 07/01/16 at 1232 by ESTRADA JACOBS RN DISCHARGE Hydrocodone/APAP 1 tab PO has been effective for pain control. Tolerating liquids PO and her diet well. She ate 50 % of her breakfast. Denies nausea. No emesis noted. Denies SOB. Patient has been ambulating independently in the room. Gait is steady. [place] drain is in place and minimal amount of sanguinous output noted in her pad. IV saline lock was d/cd by the student RN. Discharge instructions, care notes and prescription was given to the patient and she verbalized understanding. Discharged to home with her mother and all her personal belongings. (Copy of D/C is in the chart).
[2016-07-02] MEDS ORDERED: LEVO750T39 PO (16:58)
[2016-07-02] MEDS ORDERED: METR500T19 PO (16:59)
[2016-07-28] MEDS ORDERED: CHOL200047 PO (14:55)
[2016-07-28] MEDS ORDERED: BUSP15TA3 PO (14:55)
== END 2016-07-01 11:44 | disposition home or self-care (01) ==
LOC: SED 16:57 → OSC 22:24 → INTOOBSV 22:24
PROVIDERS: ADMIT Surgery; ATTEND General Practice
PROC: 0J990ZZ Drainage of Buttock Subcutaneous Tissue and Fascia, Open Approach (ICD-10-PCS; principal; 2016-06-30 14:30)
DX: K61.1 Rectal abscess (principal); Z80.0 Family history of malignant neoplasm of digestive organs; F43.10 Post-traumatic stress disorder, unspecified; F31.9 Bipolar disorder, unspecified; G47.30 Sleep apnea, unspecified; G25.81 Restless legs syndrome; K21.9 Gastro-esophageal reflux disease without esophagitis; E78.5 Hyperlipidemia, unspecified; I10 Essential (primary) hypertension; Z88.0 Allergy status to penicillin; Z88.1 Allergy status to other antibiotic agents; B96.89 Other specified bacterial agents as the cause of diseases classified elsewhere; Z23 Encounter for immunization
CPT/HCPCS: 36415; 46040; 80053; 82274; 83735; 85025; 87040; 87070; 87075; 87205; 94799; 96361; 96374; 96375; 96376; 99285; G0378; J0330; J1170; J2250; J2405; J2765; J3010; J7030; J7120; Q2039

== ENCOUNTER 2016-07-02 11:10 | Inpatient (IN) | payer OTHER ==
[~2016-07-02] VITALS: Ht 172.7 cm; Wt 92.2 kg
[2016-07-02] VITALS (14 sets, daily range): BP systolic 109–139; BP diastolic 58–84; PULSE 80–102; RESP 14–25; O2SAT 92–97
[~2016-07-02 11:10] MED LIST changes: +ALBU8.5H2 INHALATION; -ARIP10TA14 PO; +ARIP5TAB20 PO; -BUSP15TA3 PO; +IMI25 PO; -LAMO100T PO; +LAMO150T2 PO; +LEVO750T9 PO; +METR500T PO; +PRAZ2CAP2 PO; +TOPI-59 PO
--- NOTE | 2016-07-02 11:41 | ED.REPORT ---
HPI-General Illness Date of Service Jul 02, 2016 ED Provider: Magdaleno Lei DO A 41 year old female with a history of acid reflex treated with medication presents to the ED complaining of hemoptysis. She was discharged from the hospital yesterday after being admitted for jesus-rectal abscess that underwent incision and drainage procedure. she reports symptom onset during the course of her hospital stay. She describes feeling a loss of feeling in right lung when she breathes. Associated symptoms include an inability to keep any food down, and reports vomiting up medication prescribed after hospital admit. She reports throwing up her evening and morning medications. She reports no history of ulcers. Nursing Notes Stated Complaint: VOMITING BLOOD/DIZZY/BLURRED VISION Chief Complaint: General Complaint Nursing Notes Reviewed: Yes Allergies: Coded Allergies: erythromycin base (Verified Allergy, Severe, Anaphylaxis, 07/02/16) venom-honey bee (Verified Allergy, Severe, Anaphylaxis, 07/02/16) Penicillins (Verified Allergy, Intermediate, Anaphylaxis, 07/02/16) Sulfa (Sulfonamide Antibiotics) (Verified Allergy, Unknown, 07/02/16) rash, vomiting Uncoded Allergies: MISC (Allergy, Unknown, all penicillin derived abx, 06/29/16) Scheduled Alprazolam (Alprazolam) 1 Mg Tablet 1 MG PO BID Aripiprazole (Aripiprazole) 5 Mg Tablet 5 MG PO DAILY Cholecalciferol (Vitamin D3) (Vitamin D3) 2,000 Unit Tablet 2,000 UNIT PO DAILY Citalopram (Citalopram) 40 Mg Tablet 40 MG PO DAILY Duloxetine (Cymbalta) 60 Mg Capsule.dr 60 MG PO BID Gabapentin (Gabapentin) 600 Mg Tablet 600 MG PO BID Ibuprofen (Ibuprofen) 600 Mg Tablet 600 MG PO DAILYWL Lamotrigine (Lamotrigine) 150 Mg Tablet 150 MG PO DAILY Levofloxacin (Levaquin) 750 Mg Tablet 750 MG PO DAILYAC Lovastatin (Lovastatin) 20 Mg Tablet 20 MG PO HS Metronidazole (Flagyl) 500 Mg Tablet 500 MG PO Q8H Omeprazole Magnesium (Prilosec Otc) 20 Mg Tablet.dr 20 MG PO QAM Pramipexole Dihydrochloride (Mirapex) 0.5 Mg Tablet 0.5 MG PO HS Prazosin (Prazosin) 2 Mg Capsule 2 MG PO HS Topiramate (Topiramate) 25 Mg Tablet 25 MG PO DAILY Scheduled PRN Albuterol HFA (Proair HFA) 8.5 Gm Hfa.aer.ad 2 PUFFS INHALATION Q4H PRN PRN For Shortness of Breath Hydrocodone-Acetaminophen 5-325 mg (Hydrocodone-Acetaminophen 5-325 mg) 1 Each Tablet 1 TABLET PO QID PRN PRN For Pain Sumatriptan (Imitrex) 25 Mg Tablet 25-50 MG PO DAILY PRN PRN Headache General Time Seen by MD: 11:33 Chief Complaint Other (hemoptysis) Hx Obtained From: Patient Sudden in Onset?: No Onset Occurred: Yesterday Symptom Duration: Since onset Severity: Current: Mild Severity: Maximum: Mild Recent Healthcare: Recent hospitalization Similar Sx Previous: No Past Medical History Past Medical History PTSD Bipolar OCD Sleep apnea Reports: GERD, Hyperlipidemia, Hypertension, Mental illness Past Surgical History Facial bone repair Left shoulder surgery Reports: Hysterectomy, Tonsillectomy Reports: Tubal ligation Smoking History Current Every Day Smoker Social History Other Social History: Good social support Review of Systems hemoptysis. Loss of feeling in right lung when breathing. Inability to keep food down. Full Review of Systems Constitutional: Denies: Fever GI: Reports: Vomiting Complete sys rev & neg: except as marked. Physical Exam Vital Signs Vital Signs Date Time Temp Pulse Resp B/P Pulse Ox O2 Delivery O2 Flow Rate FiO2 07/02/16 14:00 90 20 128/60 94 Room Air 07/02/16 11:19 37.0 101 14 131/62 94 Room Air Initial VS: Reviewed General/Constitutional: Awake, Alert Appearance / Presentation: Positive: Obese Head / Eyes: Atraumatic, Normocephalic, PERRL, EOMI ENT: Atraumatic, Mucous membranes moist Neck: Atraumatic, Full range of motion Respiratory / Chest: Atraumatic, Breath sounds NL, Breath sounds = bilat, No rales, No rhonchi, No wheezing Cardiovascular: Heart rate NL, Regular rhythm, Heart sounds NL, No gallop, No murmurs, No rubs Abdomen: Atraumatic Tenderness/Guarding/Rebound: Positive: Tender RUQ... (With Aponte's sign. ) Back: Atraumatic, Full range of motion Lymphatic: No gross adenopathy Upper Extremities Upper Extremity / MS: Atraumatic, Inspection NL, Full range of motion Wrist / Hand: Atraumatic, Full range of motion Lower Extremity / Pelvis / MS: Atraumatic, Inspection NL, Full range of motion Ankle / Foot: Atraumatic, Full range of motion Skin: Atraumatic, Color NL, No rash, Warm, Dry Neurologic: Oriented X3, Speech NL Interpretation & Diagnostics Lab Results Interpretation Result Diagram: 07/02/16 1130 07/02/16 1130 Test 07/02/16 11:30 07/02/16 13:00 White Blood Count 15.2th/mm3 (3.8-10.1) Red Blood Count 4.72mil/mm3 (3.90-5.20) Hemoglobin 14.0g/dL (12.0-15.6) Hematocrit 41.7% (35.0-46.0) Mean Corpuscular Volume 88.3fL (81-100) Mean Corpuscular Hemoglobin 29.7pg (27.0-35.0) Mean Corpuscular Hemoglobin Concent 33.6% (32.0-37.0) Red Cell Distribution Width 12.4% (12.3-15.4) Platelet Count 246bil/L (150-400) Neutrophils (%) (Auto) 85.8% (40-74) Lymphocytes (%) (Auto) 8.4% (14-46) Monocytes (%) (Auto) 5.1% (4-12) Eosinophils (%) (Auto) 0.2% (0-5) Basophils (%) (Auto) 0.2% (0-3) Prothrombin Time 10.3sec (8.1-12.5) Prothromb Time International Ratio 0.96ratio Sodium Level 139mEq/L (134-144) Potassium Level 3.9mEq/L (3.5-5.2) Chloride Level 104mEq/L (97-108) Carbon Dioxide Level 23mmol/L (18-29) Blood Urea Nitrogen 7mg/dL (6-20) Creatinine 0.62mg/dL (0.57-1.00) Estimat Glomerular Filtration Rate 153mL/min (>59) Glucose Level 118mg/dL (60-99) Lactic Acid Level 0.7mmol/L (0.4-2.0) Calcium Level 8.9mg/dL (8.5-10.1) Magnesium Level 1.9mg/dL (1.6-2.6) Total Bilirubin 0.2mg/dL (0.0-1.2) Aspartate Amino Transf (AST/SGOT) 28U/L (0-50) Alanine Aminotransferase (ALT/SGPT) 41U/L (0-32) Alkaline Phosphatase 69U/L (25-150) Total Protein 6.6g/dL (6.4-8.4) Albumin 3.8g/dL (3.4-5.0) Lipase 15U/L (13-60) Hold Urine Received (Received) CT Abd / Pelvis Interpretation IMPRESSION: 1. Findings suggestive of esophagitis; endoscopy could be performed for further assessment, if clinically indicated. 2. Normal appendix. 3. New small right pleural effusion and, in association with bibasilar streaky opacities, consistent with atypical pneumonia. Dictated by: Venkata Scott M.D. on 07/02/2016 at 13:35 Approved by: Venkata Scott M.D. on 07/02/2016 at 13:37 Interpretation / Wet Read by: Interpret - Radiologist Re-Eval/Medical Decision Source of Hx: Old records Time of Eval: 14:01 Re-Evaluation/Progress Note: Rechecked patient and explained test results. Patient denies having shingles. she reports that she has not been coughing lately. Explained plan for admission. Consultation : Referral / Consult Name: Jazmin Horne MD Consulted With: Surgeon Call Returned at: 15:14 Psychiatric Arnp: Will see patient, Agrees with eval, Agrees with plan Note: Discussed patient case with Dr. Horne who will see the patient. 1536- will admit for cholecystectomy Counseled Regarding: Diagnosis, Lab results, Need for admission Discharge & Departure Primary Impression: Cholecystitis Disposition: ADMITTED TO HOSPITAL Referrals: Raz Thibodeaux DO (PCP) Gerald Attestation Portions of this note were transcribed by Javier Meade. I, Dr. Lei, personally performed the history, physical exam, and medical decision-making; I reviewed and confirmed the accuracy of the information in the transcribed note. Signed by: Gerald Muñiz, 07/02/2016, 1532. copies to: Raz Thibodeaux Timothy S DO Jul 02, 2016 11:41 Javier Meade Jul 02, 2016 11:51
[2016-07-02] MEDS ORDERED: 0.9% Sodium Chloride 1,000 ML IV ONE (12:02)
[2016-07-02] MEDS ORDERED: Ondansetron 2 mg/mL 2 mL Inj IVPUSH PRN ×3 (12:05→17:40)
[2016-07-02 12:09] LABS: BASOPHILS % (AUTO) 0.2 % (0-3); EOSINOPHILS % (AUTO) 0.2 % (0-5); MONOCYTES % (AUTO) 5.1 % (4-12); Mean Corpuscular Hemoglobin 29.7 pg (27.0-35.0); Mean Corpuscular Volume 88.3 fL (81-100); NEUTROPHILS % (AUTO) 85.8 % (40-74); Platelet Count 246 bil/L (150-400)
[2016-07-02 12:30] LABS: Magnesium 1.9 mg/dL (1.6-2.6)
[2016-07-02 12:42] LABS: INR 0.96 ratio
[2016-07-02] MEDS ORDERED: Promethazine Inj 25 MG in Dextrose 5%-Pha MIX 50 ML IV ONE (12:45)
--- NOTE | 2016-07-02 13:39 | DRSVH ---
PROCEDURE: CT ABDOMEN AND PELVIS WITH CONTRAST ([id number]) INDICATIONS: right upper quadrant pain, leukoctyosis TECHNIQUE: After the administration of intravenous contrast, 5 mm thick sections acquired from the diaphragm to the symphysis. 5 mm coronal and sagittal reformats were acquired. For radiation dose reduction, the following was used: automated exposure control, adjustment of mA and/or kV according to patient siz e. COMPARISON: Outside Film, CT, CT ABD PELVIS W CON, 06/29/2016, 0:30. FINDINGS: Image quality: Excellent. ABDOMEN: Lung bases: There is a small right pleural effusion, new since the prior examination. There is new mo derate patchy bibasilar streaky opacity. Solid organs: Liver and spleen are normal in size and enhancement. Gallbladder is within normal orantes its. Biliary system is non dilated. Pancreas enhances normally. No adrenal nodules. Kidneys demon strate normal size and enhancement, without hydronephrosis. Peritoneum and bowel: There is new mild thickening of the distal esophagus, with surrounding fluid. N o pneumoperitoneum. There is a small amount of free fluid within the pelvis, which is within physiolo gical limits in a menstruating female. Normal appendix. Nodes and vessels: No retroperitoneal or mesenteric adenopathy by size criteria. Aorta and inferior vena cava are normal in size. Miscellaneous: No ventral hernias. PELVIS: Genitourinary: Bladder wall thickness is normal. Miscellaneous: No inguinal hernias or adenopathy. Bones: No suspicious bony lesions. No vertebral body compression fractures. IMPRESSION: 1. Findings suggestive of esophagitis; endoscopy could be performed for further assessment, if clinic ally indicated. 2. Normal appendix. 3. New small right pleural effusion and, in association with bibasilar streaky opacities, consistent with atypical pneumonia. Dictated by: Venkata Scott M.D. on 07/02/2016 at 13:35 Approved by: Venkata Scott M.D. on 07/02/2016 at 13:37
[2016-07-02] MEDS ORDERED: LidocaineVisc 2%:Antacid 1:1 10 mL Syringe PO ONE (14:00)
[2016-07-02] MEDS ORDERED: Pantoprazole 4 mg/mL 10 mL Inj IVPUSH ONE (14:00)
[2016-07-02] MEDS ORDERED: metroNIDAZOLE Inj 1,000 MG in IV Premix 1 EACH IV ONE (15:35)
[2016-07-02] MEDS ORDERED: levoFLOXacin Inj 750 MG in IV Premix 1 EACH IV ONE (15:35)
[2016-07-02] MEDS: 0.9% Sodium Chloride 1,000 ML IV SCH (15:39)
--- NOTE | 2016-07-02 15:44 | DRSVH ---
PROCEDURE: US ABDOMEN, LIMITED ([id number]) INDICATIONS: eval RUQ TECHNIQUE: Real-time focused scanning was performed of the abdomen, with image documentation. COMPARISON: [facility], CT, CT ABD PELVIS W CON, 07/02/2016, 13:16. FINDINGS: Limited evaluation the gallbladder demonstrates cholelithiasis without evidence for cholecy stitis. No biliary dilatation. IMPRESSION: Cholelithiasis. Dictated by: Hector PARNELL Interpreted: Sulema Smith MD on 07/02/2016 at 15:34 Transcribed by: NATHANIEL on 07/02/2016 at 15:35 Approved by: Sulema Smith M.D. on 07/02/2016 at 16:33
--- NOTE | 2016-07-02 16:35 | CONS ---
[address] [address] CONSULTATION REPORT PATIENT: ASHLEY FAY : 1975 MR#: [id number] ADMIT: 07/02/2016 JOB ID: [id number] DATE OF SERVICE: 07/02/2016 CHIEF COMPLAINT: 41yof with right upper quadrant tenderness. This consultation is requested by Antonio Lei of the Emergency Department. HISTORY OF PRESENT ILLNESS: This is a 41-year-old woman who presented to the emergency department with nausea, vomiting, right upper quadrant pain, and right upper quadrant tenderness. This has been going on several days and is confounded by pain, nausea, vomiting associated with recent drainage of a perirectal abscess. She has a history of chronic nausea and vomiting for which an endoscopy was performed back in 2013 and was essentially normal. She has significant right upper quadrant pain and tenderness. Additionally in the emergency departmentshe reported hematemesis, although Dr. Maria visualized her vomitus and reports that it was essentially clear with small flecks of blood. She has a white blood cell count of 15 and comprehensive metabolic panel is essentially normal with the exception of a mildly elevated ALT at 41. Bilirubin is 0.2. Lactate 0.7. A CT scan was performed showing a small right pleural effusion and possible esophageal thickening suggestive of esophagitis. An abdominal ultrasound was performed and showed gallstones and a sonographic Aponte sign. There was no pericholecystic fluid; the final report is pending on this. Of note, the patient had a perirectal abscess which was drained by my partner, Dr. Charlton, two days ago, on June 30, 2016. Her perianal area has been feeling much better since that time and I inspected it and it appears well drained, with an indwelling Pauline drain. PAST MEDICAL HISTORY: 1. PTSD. 2. Bipolar. 3. OCD. 4. Sleep apnea. 5. GERD. 6. Hyperlipidemia. 7. Hypertension. 8. History of chronic nausea and vomiting s/p endoscopy 2013 9. Family h/o colon cancer s/p colonoscopy 2016 PAST SURGICAL HISTORY: 1. Hysterectomy. 2. Tonsillectomy. 3. Tubal ligation. 4. Left shoulder surgery. 5. Left facial surgeries status post traumatic injury. MEDICATIONS: She is currently on levofloxacin and Flagyl for her perirectal abscess. Additional medications include the followin. Alprazolam. 2. Aripiprazole. 3. Vitamin D3. 4. Citalopram. 5. Cymbalta. 6. Gabapentin. 7. Ibuprofen. 8. Lamotrigine. 9. Levofloxacin. 10. Lovastatin. 11. Omeprazole. 12. Mirapex. 13. Prazosin. 14. Topiramate. 15. Albuterol. 16. Vicodin. 17. Sumatriptan. ALLERGIES: 1. PENICILLINS. 2. SULFA. 3. ERYTHROMYCIN. 4. BEE STING. FAMILY HISTORY: Her father in his mid 40s from colon cancer and she has two paternal aunts who had colon cancer. (For this reason the patient had a colonoscopy in May 2016, which was essentially normal with the exception of scattered diverticula.) Multiple family members have had gallbladder disease and have had cholecystectomies, including both her mother and father as well as several additional more distant relatives. SOCIAL HISTORY: She currently smokes. She lives in a [facility] in [place] and volunteers for the [employer]. She is not currently employed. REVIEW OF SYSTEMS: Eleven-point review of systems is positive for nausea, vomiting, abdominal pain, hemoptysis, and is otherwise negative. PHYSICAL EXAMINATION: Temperature 37.0, heart rate 90, blood pressure 128/60, respiratory rate of 20, saturation 94% on room air. General: Awake and alert, no acute distress. Head: Normocephalic. Neck: Supple. Cardiac: Regular rate and rhythm, no murmurs, rubs, or gallops. Respiratory: Clear to auscultation bilaterally. Abdomen: Soft. Severe tenderness in the right upper quadrant to moderate palpation. Mild tenderness in the right lower quadrant to moderate palpation. The left upper quadrant and left lower quadrants of the abdomen are nontender. Extremities: No edema. Neurologic: No gross deficits. Psychiatric: Normal cognition and judgment. Perianal region: Samuel drain is in place in left perianal abscess cavity which is well drained without surrounding fluctuance and erythema. There is a small amount of purulent fluid on the Pauline drain. The area is essentially non- tender to palpation. LABORATORY: White blood cell count is 15.2, hematocrit 41.7, platelets 246. Comprehensive metabolic panel is within normal limits with the exception of ALT 41. Of note, lipase and bilirubin are normal. Creatinine is normal. IMAGING: Images from CT scan of the abdomen are personally reviewed and notable for trace right pleural effusion. Findings are also suggestive of esophagitis. Abdominal ultrasound: A limited evaluation was performed due to body habitus. Cholelithiasis is present without biliary dilation or pericholecystic fluid. She does have a positive sonographic Aponte sign. ASSESSMENT: A 41-year-old woman with probable cholecystitis. This assessment is based on the combination of severe tenderness in the right upper quadrant at the location of the gallbladder in association with her leukocytosis to 15, cholelithiasis, and ongoing right upper quadrant pain. Issues complicating the overall picture include her recent drainage of perirectal abscess. I carefully examined this region and she has no sign of an undrained fluid collection and her tenderness in this region has resolved. The Pauline drain is providing excellent drainage of this site. Therefore, I do not think that her leukocytosis is secondary to ongoing infection in the perirectal region. An additional complicating factor is her ongoing nausea and vomiting, as well as thickening of the esophageal wall seen on CT scan. I carefully reviewed her history which includes upper endoscopy in August 2013 for chronic nausea and vomiting, which was essentially normal at that time. Although the patient complained of hematemesis, careful inspection of emesis by Dr. Lei showed only small amounts of blood in her vomitus, which could be secondary to irritation from vomiting as a result of gallbladder inflammation. PLAN: The patient is already on levofloxacin and Flagyl, and this will be continued. I recommend laparoscopic cholecystectomy to be performed at this time. I consented the patient to the risks and benefits, including bleeding, infection, injury to surrounding structures, and the risk of conversion to open. I additionally consented her to the possibility that her gallbladder is not the underlying etiology for her nausea and vomiting, in particular because she has had chronic nausea and vomiting in the past. If this were to be the case, my next step would be to recommend upper endoscopy given that she has had some sign of esophagitis both on CT scan and on personal history. Alternatively, if her gallbladder is the reason she is having continued nausea and vomiting, it is possible that cholecystectomy will be therapeutic in this regard. The patient understands all of the above and elects to proceed. The laparoscopic cholecystectomy was performed this evening. GEETA
[2016-07-02] MEDS ORDERED: LEVO750T39 PO (16:58)
[2016-07-02] MEDS ORDERED: METR500T19 PO (16:59)
[2016-07-02] MEDS ORDERED: Lactated Ringer's 1,000 ML IV ONE (17:13)
[2016-07-02] MEDS ORDERED: Lactated Ringer's 1,000 ML IV SCH (17:39)
[2016-07-02] MEDS ORDERED: Lactated Ringer's 500 ML IV PRN (17:39)
--- NOTE | 2016-07-02 17:39 | PCM.HPANE ---
Patient Data Date of Service: Jul 02, 2016 (1700) Surgeon Admitting Provider:Jazmin Horne MD Attending Provider:Jazmin Horne MD Primary Care Physician:Raz Thibodeaux DO Other Provider: Reason for Visit Upper Abdominal Pain Ht/WT & BMI Height (Feet): 5 Height (Inches): 8.00 Weight (Kilograms): 92.200 Body Mass Index 30.81 Allergies Coded Allergies: erythromycin base (Verified Allergy, Severe, Anaphylaxis, 07/02/16) venom-honey bee (Verified Allergy, Severe, Anaphylaxis, 07/02/16) Penicillins (Verified Allergy, Intermediate, Anaphylaxis, 07/02/16) Sulfa (Sulfonamide Antibiotics) (Verified Allergy, Unknown, 07/02/16) rash, vomiting Uncoded Allergies: MISC (Allergy, Unknown, all penicillin derived abx, 06/29/16) Past Anesthesia History Anesthesia History: Denies:: Abnormal Airway, Anesthesia Reactions, Difficult Intubation, Fam Anesthesia Reaction, Fam Malignant Hypertherm, Malignant Hyperthermia Diabetes History Hx Diabetes?: No MRSA MRSA: No Medications Blood Thinner: Aspirin Hypertension Medication: No Home Meds Incl Beta Getachew: No Active Scripts Hydrocodone-Acetaminophen 5-325 mg 1 Each Tablet1 Tablet PO QID PRN For Pain # 10 TABLET Ref 0 Prov:Tashi Potter PAC 12/25/15 Reported Medications Metronidazole 500 Mg Vepjby743 Mg PO TID Ref 0 07/02/16 Levofloxacin 750 Mg Jsoevx278 Mg PO DAILY 07/02/16 Albuterol HFA (Proair HFA)8.5 Gm Hfa.aer.ad2 Puffs INHALATION Q4H PRN For Shortness of Breath #1 INHALER 06/29/16 Sumatriptan (Imitrex)25 Mg Wzqplu08-85 Mg PO DAILY PRN Headache 06/29/16 Prazosin 2 Mg Capsule2 Mg PO HS 06/29/16 Aripiprazole 5 Mg Tablet5 Mg PO DAILY 06/29/16 Lamotrigine 150 Mg Kamppk805 Mg PO DAILY Ref 0 06/29/16 Topiramate 25 Mg Kkbupo10 Mg PO DAILY Ref 0 06/29/16 Gabapentin 600 Mg Waqmej439 Mg PO BID Ref 0 05/20/16 Omeprazole Magnesium (Prilosec Otc)20 Mg Tablet.dr20 Mg PO QAM #1 PKG Ref 0 05/19/16 Pramipexole Dihydrochloride (Mirapex)0.5 Mg Tablet0.5 Mg PO HS 05/19/16 Lovastatin 20 Mg Xibtkz77 Mg PO HS #30 TABLET Ref 0 05/19/16 Ibuprofen 600 Mg Xoxjtu917 Mg PO DAILYWL Ref 0 05/19/16 Cholecalciferol (Vitamin D3) (Vitamin D3)2,000 Unit Tablet2,000 Unit PO DAILY 05/19/16 Duloxetine (Cymbalta)60 Mg Capsule.dr60 Mg PO BID Ref 0 05/19/16 Citalopram 40 Mg Fgwbre35 Mg PO DAILY 30 Days Ref 0 05/19/16 Alprazolam 1 Mg Tablet1 Mg PO BID Ref 0 05/19/16 Discontinued Reported Medications Aripiprazole (Abilify)10 Mg Gjjbnb50 Mg PO DAILY Ref 0 05/20/16 Buspirone 15 Mg Wzgmqq93 Mg PO BID Ref 0 05/19/16 Lamotrigine (Lamictal)100 Mg Lnpljf957 Mg PO BID 30 Days Ref 0 12/25/15 Discontinued Scripts Metronidazole (Flagyl)500 Mg Yhaszy067 Mg PO Q8H #15 TABLET Prov:Sherman Rosales DO 07/01/16 Levofloxacin (Levaquin)750 Mg Yumsex938 Mg PO DAILYAC #5 TABLET Prov:Sherman Rosales DO 07/01/16 History History of ENT Problems?: No HEENT History: Denies:: Abnormal Airway Difficult Intubation Dysphagia Hearing Problem Hx of Heart Problems?: No Cardiovascular History: Denies:: AICD Atrial Fibrillation Chest Pain Congestive Heart Failure Hypertension Pacemaker Valvular Heart Disease Other Cardiac History: no sob Hx of Respiratory Problem?: No Respiratory History: Denies:: Asthma COPD Cough Hemoptysis Pneumonia Tuberculosis Other Resp Pertinent History: SHELIA on cpap Hx Neurologic Problems?: Yes Neurological History: Positive for:: Headaches Denies:: CVA Dementia Seizures Hx of GI Problems?: Yes Gastrointestinal History: Positive for:: Gastroesphageal Reflux Denies:: Cirrhosis Diverticulitis Gastrointestinal Bleeding Heartburn Hepatitis Hiatal Hernia Rectal Bleeding Hx of Problems?: No Genitourinary History: Denies:: Kidney Stones Urinary Tract Infection Female Hx: Denies:: Currently Endometriosis Pelvic Inflammatory Problems with Breasts? Other Skin Pertinent History: just discharged, having had I&D of perirectal abscess Hx Musculoskeletal Problems?: Yes Musculoskeletal History: Denies:: Back Injury Joint Replacement Musculoskeletal Trauma Hx of Psycho/Social Problems?: Yes Psycho Social History: Positive for:: Anxiety (PTSD, OCD) Bipolar Disorder Hx Depression Denies:: Suicide Attempt Hx Surgeries?: Yes (L facial, cx ablation x's 3, partial hyst, TL, tonsils) Hx Any Other Health Problems?: Yes Other History: Positive for:: Hospitalization Denies:: Cancer Thyroid Disease History Blood Transfusions: Positive for:: Accept Blood Products? Denies:: Blood Transfuse Reaction Blood Transfusions Hx Diabetes: No Hx Alcohol Use: YesHx Substance Use: No Smoking Status: Current Every Day Smoker Have You Smoked inLast 12 mo: Yes Stop/Bang Treated for Sleep Apnea?: Yes Do You Have a CPAP Machine?: Yes S-Snoring: Do You Snore Loudly: Yes T-Tired: feel tired, fatigued: Yes O-Obsered: Observed not breath: Yes P-Blood Pressure: treated: No B- Body Mass Index > 35 kg/m2: No A- Age over 50: No N- Neck Large Circumference: No G- Gender Male: No SHELIA Total Score: 3 SHELIA Risk Assessment: High Risk, =/>3 Yes SHELIA Category 1: Yes Risk Assessment Category Category 1A: Patient has history of documented sleep apnea, and HAS NOT received any narcotic, sedative or anesthesia administration during this stay. Category 1B: Patient has history of documented sleep apnea, and HAS received any narcotic , sedative or anesthesia administration during this stay Category 2: Patient has SUSPECTED Obstructive Sleep Apnea, and HAS received any narcotic , sedative or anesthesia administration during this stay. Category 3: Patient has SUSPECTED Obstructive Sleep Apnea and HAS NOT received narcotic, sedative or anesthesia administration during this stay. Category 4: Outpatient in Procedural Areas with known sleep apnea or who screen positive for High Risk via the STOP/BANG questionnaire. Exam Exam Vital Signs Vital Signs Date Time Temp Pulse Resp B/P Pulse Ox O2 Delivery O2 Flow Rate FiO2 07/02/16 16:33 36.7 84 18 122/78 95 Room Air 07/02/16 16:10 36.7 80 16 109/58 93 Room Air 07/02/16 15:57 36.7 80 16 109/58 93 Room Air 07/02/16 14:00 90 20 128/60 94 Room Air 07/02/16 11:19 37.0 101 14 131/62 94 Room Air General Appearance: Alert, Oriented X3, Cooperative, No Acute Distress HEENT/AIRWAY: MP 2, Neck Movement (FROM), Mouth Opening (3), Other (TMD3) Lungs: Diminished Heart: Exam Unremarkable, Regular Rate/Rhythm, Normal S1, Normal S2, No Murmurs /Rubs/Gallops Meds/Labs/Diagnostics Admission Meds Current Medications Sodium Chloride 1,000 ml @ 0 mls/hr Q0M ONCE IV Last administered on 07/02/16 11:20; Start 07/02/16 at 12:02; Stop 07/02/16 at 12:03; Status DC Promethazine HCl/ Dextrose/Water (Phenergan Inj/ [facility] To Mix) 51 ml @ 153 mls/hr ONCE ONCE IV Last administered on 07/02/16 13:02; Start 07/02/16 at 12:45; Stop 07/02/16 at 13:04; Status DC Pantoprazole (Protonix Inj) 40 mg ONCE ONCE IVPUSH Last administered on 14:58; Start 07/02/16 at 14:00; Stop 07/02/16 at 14:01; Status DC Miscellaneous 10 ml 10 ml ONCE ONCE PO Last administered on 07/02/16 15:18; Start 07/02/16 at 14:00; Stop 07/02/16 at 14:01; Status DC Levofloxacin/ Dextrose/Premix (Levaquin Inj/IV Premix) 150 ml @ 100 mls/hr ONCE ONCE IV Last administered on 07/02/16 15:57; Start 07/02/16 at 15:35; Stop 07/02/16 at 17:04; Status DC Labs Test 07/02/16 11:30 07/02/16 13:00 White Blood Count 15.2th/mm3 (3.8-10.1) Red Blood Count 4.72mil/mm3 (3.90-5.20) Hemoglobin 14.0g/dL (12.0-15.6) Hematocrit 41.7% (35.0-46.0) Mean Corpuscular Volume 88.3fL (81-100) Mean Corpuscular Hemoglobin 29.7pg (27.0-35.0) Mean Corpuscular Hemoglobin Concent 33.6% (32.0-37.0) Red Cell Distribution Width 12.4% (12.3-15.4) Platelet Count 246bil/L (150-400) Neutrophils (%) (Auto) 85.8% (40-74) Lymphocytes (%) (Auto) 8.4% (14-46) Monocytes (%) (Auto) 5.1% (4-12) Eosinophils (%) (Auto) 0.2% (0-5) Basophils (%) (Auto) 0.2% (0-3) Prothrombin Time 10.3sec (8.1-12.5) Prothromb Time International Ratio 0.96ratio Sodium Level 139mEq/L (134-144) Potassium Level 3.9mEq/L (3.5-5.2) Chloride Level 104mEq/L (97-108) Carbon Dioxide Level 23mmol/L (18-29) Blood Urea Nitrogen 7mg/dL (6-20) Creatinine 0.62mg/dL (0.57-1.00) Estimat Glomerular Filtration Rate 153mL/min (>59) Glucose Level 118mg/dL (60-99) Lactic Acid Level 0.7mmol/L (0.4-2.0) Calcium Level 8.9mg/dL (8.5-10.1) Magnesium Level 1.9mg/dL (1.6-2.6) Total Bilirubin 0.2mg/dL (0.0-1.2) Aspartate Amino Transf (AST/SGOT) 28U/L (0-50) Alanine Aminotransferase (ALT/SGPT) 41U/L (0-32) Alkaline Phosphatase 69U/L (25-150) Total Protein 6.6g/dL (6.4-8.4) Albumin 3.8g/dL (3.4-5.0) Lipase 15U/L (13-60) Hold Urine Received (Received) Plan Impression Patient chart reviewed, patient interviewed and anesthestic plan with risks, benefits, and alternatives discussed, and informed consent obtained. NPO Status: 06/30/16 ASA Physical Status: ASA2 Mod Systemic Disease Anesthetic Plan: GA Bene/Risks/Altern/Consents: Yes HP Complete Prior to Induction: Yes Anthony Barragan MD Jul 02, 2016 17:39
[2016-07-02] MEDS ORDERED: Phenylephrine 10,000 mCg/mL Inj IVPUSH PRN (17:40)
[2016-07-02] MEDS ORDERED: fentaNYL-PF 50 mCg/mL 2 mL Inj IVPUSH PRN (17:40)
[2016-07-02] MEDS ORDERED: HYDROmorphone 1 mg/mL Inj IVPUSH PRN (17:40)
[2016-07-02] MEDS ORDERED: MetoCLOpramide 5 mg/mL 2 mL Inj IVPUSH PRN ×2 (17:40→18:50)
[2016-07-02] MEDS ORDERED: Dexamethasone 4 mg/mL Inj IVPUSH PRN (17:40)
[2016-07-02] MEDS ORDERED: EPHEDrine Sulfate 50 mg/mL Inj IVPUSH PRN (17:40)
[2016-07-02] MEDS ORDERED: Iopamidol-300 50 mL Inj INJ ONE (17:49)
[2016-07-02] MEDS ORDERED: Bupivacaine 0.5%/EPI 50 mL Inj INJ ONE (17:49)
--- NOTE | 2016-07-02 18:13 | NUR ---
transfer to [facility] Pt. transferred to [facility] from ED at 1635. Pt. in stable condition, with tolerable upper abdominal pain of 6/10. No nausea. Breath sounds clear. Vitals stable. Pt has buttock i&D site from previous hospitalization. Draining small amount of serous drainage to jesus pad. OR staff came at 1650 to take pt. via gurney to OR.
--- NOTE | 2016-07-02 18:55 | PCM.SURGOP ---
Surgical Operative Report Date of Service: Jul 02, 2016 Pre Operative Diagnosis Acute cholecystitis Post Operative Diagnosis Early acute cholecystitis Procedure: Laparoscopic cholecystectomy with intraoperative cholangiogram, with interpretation Surgeon and Air Sampler: Surgeon: Jazmin Horne M.D. Assistants: ESAU Gomez; Mar Kuo, MS 3 Indication for Procedure This is a 41-year-old woman who presents to the emergency department with several days of right upper quadrant pain and tenderness as well as nausea and vomiting. Abdominal ultrasound revealed cholelithiasis and sonographic Aponte sign. She was diagnosed with probable acute cholecystitis and therefore laparoscopic cholecystectomy was planned. Findings: 1. Mildly inflamed gallbladder consistent with early acute cholecystitis. 2. A single large round gallstone was present in the gallbladder. 3. Normal intraoperative cholangiogram with a long cystic duct, no filling defects, and adequate visualization of the right and left hepatic ducts, common hepatic duct, common bile duct, with good filling of the duodenum. Procedure Details The patient was brought to the operating room and placed in supine position. General endotracheal anesthesia was smoothly induced. Antibiotics had been infused in the emergency department. A warming blanket and SCDs were placed. A foot board was placed. The operative field was prepped and draped in sterile fashion. A pause was performed to confirm the correct patient, procedure, site, and side. A transverse 10 mm incision was made just below the umbilicus. The abdomen was entered under direct vision using a Maureen port. Three additional 5 mm ports were placed in the epigastrium and right upper quadrant. The gallbladder was identified and lifted cephalad. There were mild omental adhesions due to cholecystitis. The adhesions were gently dissected off of the gallbladder. Dissection then proceeded to identify the cystic duct, cystic artery, and to fully expose the cystic plate. Once there were two and only two structures entering the gallbladder, a clip was placed on the gallbladder side of the cystic duct. A ductotomy was made and a cholangiocatheter was inserted. A cholangiogram was performed and the cystic duct was long and patent with normal filling of the common hepatic duct, common bile duct, and right and left hepatic ducts, as noted above. The cholangiocatheter was then removed, two clips were placed on the cystic duct and it was divided. The cystic artery was clipped on both the gallbladder side and twice on the patient's side and divided. The gallbladder was then removed from its bed on the liver with electrocautery. Prior to completely removing the gallbladder, a final look was taken at the stump of the cystic artery and cystic duct, and there was no bleeding or bile leak. The gallbladder was then fully removed from the liver and placed in an EndoCatch bag and removed. The three 5 mm ports were removed under direct vision, the 10 mm mid abdominal port was removed, and a [id number]-[id number] 0 PDS was used to close the fascia. There was no fascial defect at the end of the case. 0.5% Marcaine with epinephrine was infused at all port sites for postoperative analgesia. The skin was closed with subcuticular 4-0 Monocryl. Sterile dressings were placed. Sponge, instrument, and needle counts were correct at the end of the procedure. The patient was awakened from general anesthesia and taken to the postoperative care unit in good condition. Complications There were no periprocedural complications identified. Surgical Specimen Removed: Yes Specimen sent to Pathology: Yes Surgical Specimen description: Gallbladder and gallstone Anesthetic Plan: GA Grafts, Implants: None Output, Estimated Blood Loss: 1 (ml) Blood Administration during kee: No Jazmin Horne MD Jul 02, 2016 18:55
--- NOTE | 2016-07-02 18:58 | PCM.PNSURG ---
Subjective Visit Information: Reason for Visit Upper Abdominal Pain Surgery/Surgery Date Post-Op Day # Date of Admission: Jul 02, 2016 at 15:39 Hospital Day # Subjective: Postop note. Lap cholecystectomy was uncomplicated. Findings consistent with early acute cholecystitis. Objective Vital Sign- Last 8 Hours Date Time Temp Pulse Resp B/P Pulse Ox O2 Delivery O2 Flow Rate FiO2 07/02/16 16:33 36.7 84 18 122/78 95 Room Air 07/02/16 16:10 36.7 80 16 109/58 93 Room Air 07/02/16 15:57 36.7 80 16 109/58 93 Room Air 07/02/16 14:00 90 20 128/60 94 Room Air 07/02/16 11:19 37.0 101 14 131/62 94 Room Air Result Diagram: 07/02/16 1130 07/02/16 1130 Assessment & Plan Impression 41-year-old woman status post laparoscopic cholecystectomy for probable acute cholecystitis. Problems: Plan 1. Overnight observation. 2. Clear liquid diet. 3. Assess for right upper quadrant pain, nausea, vomiting in the morning. Consider endoscopy if nausea/vomiting not improved. Okay to discharge to home if symptoms have improved. Jazmin Horne MD Jul 02, 2016 18:58
--- NOTE | 2016-07-02 19:21 | DRSVH ---
PROCEDURE: X-RAY OPERATIVE CHOLANGIOGRAM ([id number]) INDICATIONS: 41 year-old female undergoing laparoscopic cholecystectomy. COMPARISON: [facility], , [facility], 07/02/2016, 14:48. FINDINGS: Biliary ducts: The surgeon injected contrast into the biliary ducts after cannulation of the cystic duct stump. Visualized intra- and extrahepatic bile ducts are normal in caliber, without strictures. No intraluminal filling defects to suggest retained ductal stones or sludge. No evidence for iatro genic ductal injury. Duodenum: Contrast flows promptly through the sphincter of Oddi into the duodenum, which appears nor mal in caliber. IMPRESSION: Normal intraoperative cholangiogram. Dictated by: Asif Henry M.D. on 07/02/2016 at 19:19 Approved by: Asif Henry M.D. on 07/02/2016 at 19:20
[2016-07-02] MEDS: Dextrose 5% Lactated Ringer's 1,000 ML IV SCH (20:08)
--- NOTE | 2016-07-02 20:13 | NUR ---
Arrival from PACU Pt. arrived from PACU at 1956. Pt.'s A&Ox3. Pt. states pain is low on scale, as pain meds given before transport. Pt's peripheral IV intact and patent. Pt. is currently on 3 liters of oxygen via nc. Steady gait. Will continue to monitor.
[2016-07-02] MEDS: oxyCODONE-Acetamin 5-325 mg Tablet PO PRN (21:44)
[2016-07-03 00:32] VITALS: BP 112/69; PULSE 71; RESP 18; O2SAT 92
[2016-07-03] MEDS: oxyCODONE-Acetamin 5-325 mg Tablet PO PRN ×5 (01:15→20:26)
[2016-07-03] MEDS: metroNIDAZOLE Inj 500 MG in IV Premix 1 EACH IV SCH ×2 (01:16→10:11)
[2016-07-03] MEDS: 0.9% Sodium Chloride 1,000 ML IV SCH ×3 (01:23→20:21)
[2016-07-03 04:51] VITALS: BP 129/77; PULSE 68; RESP 20; O2SAT 93
[2016-07-03 06:59] LABS: BASOPHILS % (AUTO) 0.1 % (0-3); EOSINOPHILS % (AUTO) 0 % (0-5); MONOCYTES % (AUTO) 7.1 % (4-12); Mean Corpuscular Hemoglobin 29.4 pg (27.0-35.0); Mean Corpuscular Volume 89.8 fL (81-100); NEUTROPHILS % (AUTO) 81.2 % (40-74); Platelet Count 245 bil/L (150-400)
[2016-07-03] MEDS: Dextrose 5% Lactated Ringer's 1,000 ML IV SCH (07:18)
[2016-07-03] MEDS ORDERED: levoFLOXacin Inj 750 MG in IV Premix 1 EACH IV SCH (08:30)
[2016-07-03 09:20] VITALS: PULSE 87; RESP 15; O2SAT 94
[2016-07-03 10:33] VITALS: BP 152/97; PULSE 85; RESP 16; O2SAT 95
--- NOTE | 2016-07-03 12:05 | NUR ---
Social Work- Screening Note Data: Pt is a 41 year old female admitted 07/02/16 for upper abdominal pain. Pt is POD 1. Pt's insurance is [employer]ERR[employer] and PCP is Raz Thibodeaux DO. SW spoke with pt at bedside regarding discharge plan. Pt resides with her pastors in a home where she remains independent with her ADLs. Pt has no DME, no HH history, no SNF history, no LTC insurance or VA benefits. Pt has DPOA paperwork. Pt to discharge home with family to transport via POV. No anticipated discharge needs. SW continues to follow. Assessment: Pt who is independent at base. Plan: Pt to discharge home with family to transport via POV. No anticipated discharge needs. SW continues to follow. Alejandra Rodriguez MSW
[2016-07-03] MEDS ORDERED: Pantoprazole 20 mg ER24 Tablet PO SCH (12:20)
[2016-07-03] MEDS ORDERED: Albuterol HFA 60 Puff 8 Gm Inhaler INHALATION PRN (12:20)
[2016-07-03] MEDS ORDERED: metroNIDAZOLE 250 mg Tablet PO SCH (12:20)
[2016-07-03] MEDS: Albuterol 2.5 mg/3 mL Inhalation Solution NEB SCH ×3 (12:53→22:11)
--- NOTE | 2016-07-03 12:59 | PROG NOTE ---
[address] [address] PROGRESS NOTE PATIENT: ASHLEY FAY : 1975 MR#: [id number] ADMIT: 07/02/2016 JOB ID: [id number] DATE: 07/03/2016 SUBJECTIVE: The patient is postop day one laparoscopic cholecystectomy, postoperative day three from incision and drainage of a perirectal abscess. She is afebrile, mildly hypertensive today. Normal pulse in the 60s to 80s. She tells me that she feels much better than she did , with near complete resolution of her abdominal pain, though she still complains of some pain when she eats. She also complains of her reflux disease. On examination, her abdomen is soft. Her incisions are healing well. She does not seem to have any problem with her buttocks. White count today is down to 10.6, hematocrit is 37.9. Chemistries are normal. Her glucose is 124. IMPRESSION AND PLAN: Doing well status post laparoscopic cholecystectomy. There was some concern as to whether that was the cause of her pain. Given that she has been in the hospital, discharged, and then readmitted for two separate surgical issues in the past three days, I have recommended that we keep her here to make certain that she is tolerating a diet. We will watch her in the hospital overnight. It turns out that she never filled her prescription for her oral antibiotics following her perirectal abscess drainage. I will put her on Augmentin as well as her p.o. PPIs from home.
[2016-07-03 15:40] VITALS: BP 121/79; PULSE 72; RESP 16; O2SAT 94
--- NOTE | 2016-07-03 16:02 | PCM.ANEP1 ---
Post Anesthesia Phase 1 PACU Phase 1 Assessment Date of Service: Jul 02, 2016 Vital Signs Vital Signs Date Time Temp Pulse Resp B/P Pulse Ox O2 Delivery O2 Flow Rate FiO2 07/03/16 15:40 36.9 72 16 121/79 94 Room Air 07/03/16 10:33 37.0 85 16 152/97 95 Room Air 07/03/16 09:20 87 15 94 Room Air Anesthetic Administered: GA Level of Alertness: Awake, talking LEONE's with Equal Strength: Yes Pain: No Pain Scale Score: 0 Nausea or Vomiting: No Oxygen Delivery: Simple Mask Lungs: Diminished Anthony Barragan MD Jul 03, 2016 16:02
--- NOTE | 2016-07-03 16:03 | PCM.ANEP2 ---
Post Anesthesia Evaluation ASA/CMS Post Anesthesia VS in Patient's Normal Range?: Yes Resp Stable; Airway Patent?: Yes CV Function & Hydration Stable: Yes Mental Status Recovered?: Yes Pain control Satisfactory?: Yes N/V Control Satisfactory?: Yes Anthony Barragan MD Jul 03, 2016 16:02
--- NOTE | 2016-07-03 17:59 | NUR ---
Pain/Diet Pt has had 6-12/09 pain today controlled with 1 Percocet q3-5 hours. Pt tolerated clear liquid breakfast. Pt c/o nausea and had minimal emesis after her lunch. Pt declined to have any Zofran. Pt states that abdominal pain is burning and like the pain that she had before surgery. MD notified. Care continues.
[2016-07-03] MEDS: Ondansetron 2 mg/mL 2 mL Inj IVPUSH PRN (20:21)
[2016-07-03] MEDS: DULoxetine 30 mg DR Capsule PO SCH (20:26)
[2016-07-03 22:08] VITALS: PULSE 81; RESP 16; O2SAT 95
[2016-07-04] VITALS (7 sets, daily range): BP systolic 113–142; BP diastolic 65–81; PULSE 62–89; RESP 16–18; O2SAT 92–98
[2016-07-04] MEDS: oxyCODONE-Acetamin 5-325 mg Tablet PO PRN ×5 (01:42→23:20)
[2016-07-04] MEDS: Ondansetron 2 mg/mL 2 mL Inj IVPUSH PRN (01:45)
[2016-07-04] MEDS: Albuterol 2.5 mg/3 mL Inhalation Solution NEB SCH ×6 (01:57→22:45)
--- NOTE | 2016-07-04 04:38 | NUR ---
Pain/Nausea Pt agrees that percocet manages pain well, but may cause nausea- willingly accepts zofran prior to pain medication and tolerate clear liquids and saltine crackers. Reports pain under R breast and through shoulder. Nebulizer treatments from RT, pt reports constricted feeling in throat. IV infusing NS. Voiding dark cait urine this shift. No complaints of SOB or Chest pain. Care continues
[2016-07-04] MEDS: 0.9% Sodium Chloride 1,000 ML IV SCH ×2 (07:39→14:47)
[2016-07-04] MEDS ORDERED: Ondansetron 2 mg/mL 2 mL Inj ONE (08:16)
[2016-07-04] MEDS ORDERED: Succinylcholine Chloride 20 mg/mL 5 mL Inj ONE (08:16)
[2016-07-04] MEDS ORDERED: HYDROmorphone 2 mg/mL Inj ONE (08:16)
[2016-07-04] MEDS ORDERED: Propofol 10,000 mCg/mL 20 mL Inj ONE (08:16)
[2016-07-04] MEDS ORDERED: MetoCLOpramide 5 mg/mL 2 mL Inj ONE (08:16)
[2016-07-04] MEDS ORDERED: Rocuronium 10 mg/mL 5 mL Inj ONE (08:16)
[2016-07-04] MEDS ORDERED: Lidocaine PF 1% 30 mL Inj ONE (08:16)
[2016-07-04] MEDS ORDERED: Dexamethasone 4 mg/mL Inj ONE (08:16)
[2016-07-04] MEDS: levoFLOXacin 750 mg Tablet PO SCH (09:39)
[2016-07-04] MEDS: lamoTRIgine 100 mg Tablet PO SCH (09:39)
[2016-07-04] MEDS: Pantoprazole 20 mg ER24 Tablet PO SCH (09:40)
[2016-07-04] MEDS: DULoxetine 30 mg DR Capsule PO SCH ×2 (10:05→20:21)
--- NOTE | 2016-07-04 10:47 | NUR ---
Social Work- Readiness for Discharge Data: EMR reviewed. Pt is on day 2 of hospitalization for upper abdominal pain per H&P. Pt is POD 2. Pt is not medically stable for discharge, anticipate 1-2 more days. Per RN notes, pt is independent in room. Pt to discharge home with family to transport via POV. No anticipated discharge needs. SW continues to follow. Assessment: Pt who is independent at base. Plan: Pt to discharge home with family to transport via POV. No anticipated discharge needs. SW continues to follow. SHAWN Perrin
--- NOTE | 2016-07-04 12:11 | NUR ---
Pt off Unit Pt off unit to Xray and CT.
--- NOTE | 2016-07-04 12:24 | DRSVH ---
PROCEDURE: X-RAY CHEST, TWO VIEWS ([id number]) INDICATIONS: 41-year-old female with recent abdominal surgery. Evaluate for pleural effusion. TECHNIQUE: 2 views of the chest were acquired. COMPARISON: [facility], CR, XR CHEST 2VW, 03/21/2016, 15:07. [facility], CR, XR CHEST 2VW, 03/13/2016, 14:32. FINDINGS: Surgical changes and devices: Patient is status post cholecystectomy. Lungs and pleura: There is minimal right posterior pleural effusion on the lateral view only. No pn eumothorax. Lungs are clear, except for right perihilar linear atelectasis. Mediastinum: Mediastinal contours are normal. Heart size is normal. Bones and chest wall: No suspicious bony abnormalities. Soft tissues appear unremarkable. IMPRESSION: Minimal right posterior pleural effusion of uncertain clinical significance. Dictated by: Asif Henry M.D. on 07/04/2016 at 12:20 Approved by: Asif Henry M.D. on 07/04/2016 at 12:22
--- NOTE | 2016-07-04 12:51 | DRSVH ---
PROCEDURE: CT ANGIO CHEST PULMONARY EMBOLISM ([id number]) INDICATIONS: 41-year-old female with chest pain after recent anal surgery. TECHNIQUE: After the administration of intravenous contrast, 2 mm thick sections acquired from the pulmonary api michael to the posterior costophrenic angles. 3-dimensional maximum intensity projection (MIP) coronal a nd sagittal reformats were then acquired through the thorax. For radiation dose reduction, the follo wing was used: automated exposure control, adjustment of mA and/or kV according to patient size. COMPARISON: [facility], CT, CT ABD PELVIS W CON, 07/02/2016, 13:16. FINDINGS: Image quality: Excellent. Pulmonary arteries: Pulmonary arteries are normal in size, and demonstrate no intraluminal filling d efects to suggest central pulmonary embolism. Lungs and pleura: Lung volumes are decreased, with patchy ground-glass opacities from subsegmental a telectasis as well as bronchovascular crowding. Trace bibasilar mobile pleural effusions are present , as well as adjacent scattered atelectasis. No pneumothorax. Central and peripheral airways are pa tent. Mediastinum: Heart size is normal, without pericardial effusion. No mediastinal or hilar adenopathy . Thoracic aorta is normal in caliber and enhancement. Esophagus is normal in caliber, without hiat al hernia. Bones and chest wall: No suspicious bony lesions. Ribs and thoracic spine appear intact throughout. Thyroid gland is incompletely visualized. No axillary or supraclavicular adenopathy. Abdomen: Visualized upper abdominal solid organs appear normal in the early arterial phase of enhanc ement, status post cholecystectomy. IMPRESSION: 1. Trace bibasilar mobile pleural effusions are of uncertain etiology and clinical significance, not significantly changed since 07/02/2016. 2. No evidence for central pulmonary embolism. Dictated by: Asif Henry M.D. on 07/04/2016 at 12:44 Approved by: Asif Henry M.D. on 07/04/2016 at 12:50
--- NOTE | 2016-07-04 16:32 | PROG NOTE ---
[address] [address] PROGRESS NOTE PATIENT: ASHLEY FAY : 1975 MR#: [id number] ADMIT: 07/02/2016 JOB ID: [id number] DATE: 07/03/2016 The patient is afebrile with stable vital signs. The son tells me right off the bat that her pain level is 6/10. She feels that this is the same pain that she had prior to her cholecystectomy, sometimes made worse with deep inspiration, sometimes feels as if it is pulling on her right neck. PHYSICAL EXAMINATION: Lungs are clear. Heart sounds are regular. Her abdomen is soft. By report, her perianal area is healing. There are no new labs today. IMAGING: Chest x-ray demonstrates effusion on the right. IMPRESSION AND PLAN: The patient is now complaining of pain very similar to her preoperative pain. She did have a discussion with Dr. Horne, there has been some discussion about the next step being an esophagogastroduodenoscopy. I am disinclined to discharge the patient even though I am not quite certain what is the cause of her pain as she returned to the hospital within two days of her previous discharge. Given the nature of her continued right-sided abdominal pain, persistent pleural effusion and now that she reports some occasional shortness of breath with the pain, I think we are obligated to get a CT angiogram to rule out pulmonary embolism. I will order one. If that is negative, we will leave her in the hospital to be seen tomorrow by Dr. Horne who reportedly is considering EGD as the next diagnostic step.
--- NOTE | 2016-07-04 17:54 | NUR ---
Activity/Pain/Diet Pt was up and ambulating the hallway, steady gait. Tolerating activity okay. Pain continues to be controlled adequately with po pain medication. Pt still complains of pain in the right upper quadrant of her abdomen and in her upper shoulder when taking a breath. Pt states that the scheduled nebulizer treatments also help. Pt tolerated clear liquid diet for breakfast and a full liquid lunch with no nausea. Care continues.
--- NOTE | 2016-07-05 03:27 | NUR ---
Pain/Activity Pt ambulates in hallway this shift. Reports pressure/pain under R breast to shoulder, manged with PO percocet. No complaints of nausea- tolerating pudding with meds per full liquid diet. IV infuisng NS at 100 ml/h. Results of CT and CXR reported to pt, discussed pleural effusion as possible source of discomfort, pt decined nebulizer treatment. No complaints of SOB or other chest pain. Care continues Addendum: 07/05/16 at 0614 by DEBBY HYDE RN Pt reports dizziness when getting up to BR. VSS, BP WNL. Given juice with recent PRNs. No SOB or other complaints
[2016-07-05] MEDS: oxyCODONE-Acetamin 5-325 mg Tablet PO PRN ×4 (04:08→23:43)
[2016-07-05] MEDS: 0.9% Sodium Chloride 1,000 ML IV SCH ×3 (04:09→23:39)
[2016-07-05] MEDS: Albuterol 2.5 mg/3 mL Inhalation Solution NEB SCH ×4 (04:30→16:30)
[2016-07-05 06:26] VITALS: BP 123/78; PULSE 80; RESP 16; O2SAT 94
[2016-07-05 08:12] VITALS: PULSE 88; RESP 16; O2SAT 97
[2016-07-05] MEDS: DULoxetine 30 mg DR Capsule PO SCH ×2 (08:30→20:07)
[2016-07-05] MEDS: levoFLOXacin 750 mg Tablet PO SCH (08:31)
[2016-07-05] MEDS: lamoTRIgine 100 mg Tablet PO SCH (08:31)
[2016-07-05] MEDS: Pantoprazole 20 mg ER24 Tablet PO SCH (08:31)
[2016-07-05 13:26] VITALS: PULSE 90; RESP 16; O2SAT 97
--- NOTE | 2016-07-05 15:00 | PCM.PNSURG ---
Subjective Date of Service: Jul 05, 2016 Date of Service: Jul 05, 2016 Visit Information: Reason for Visit: Post op Care Date: 07/02/16 Surgery: Laparoscopic cholecystectomy with intraoperative cholangiogram, with interpretation Post-Op Day # 3 Date of Admission: Jul 02, 2016 at 15:39 Subjective: The patient states the RUQ pain is ongoing. It is described as a constant boring with intermittent sharp spikes that radiate to her right shoulder. . Narcotics alleviate it somewhat. Nothing really aggravates it. Gastrointestinal: No N/V, No Belching, Passing Flatus, Abnormal Bowel Movement (loose stool 07/01/16) Pain Management: PO Postop Activity: Ambulating Independently Objective Vital Sign- Last 8 Hours Date Time Temp Pulse Resp B/P Pulse Ox O2 Delivery O2 Flow Rate FiO2 07/05/16 13:26 90 16 97 Room Air 07/05/16 08:12 88 16 97 Room Air Intake and Output- Last 8 Hour 07/05/16 Cumulative From/Thru 07:00 07/02/16 11:19 - 07/05/16 06:26 Intake Total 2300 ml 64327 ml Output Total 1700 ml 34917 ml Balance 600 ml -713 ml Intake Oral 1100 ml 4283 ml IV Total 1200 ml 5755 ml Output Urine Total 1700 ml 67114 ml Estimated Blood Loss 1 ml General: Alert, Oriented X3 Lungs: Clear to Auscultation Heart: Regular Rate/Rhythm, Normal S1, Normal S2 Abdomen: Soft, Appropriately tender, Non-distended, Normoactive bowel tones SURGICAL WOUND : Wound General Appearence: Steri Strips, Intact, No Erythema, No Discharge Dressing & Drainage Status: Intact Wound Drainage Type: [place] (jesus anal area is healing) Extremities: Thigh&Calf Soft/Nontender Neuro: Grossly Neurologically Intact Catheters: None Result Diagram: 07/03/16 0620 07/03/16 0620 Assessment & Plan Impression 41 yo female S/P Laparoscopic Cholecystectomy surgically stable but with persistent RUQ pain. Problems: Plan 1. Spoke with Dr. Villanueva, he is more than happy to scope the patient regarding esophageal thickening on CT scan but would like a little more workup 2. Abdominal Ultrasound to R/O any fluid collection 3. CMP 4. Increase Protonix from 20 mg to 40 mg daily 5. Patient may eat 6. Re-evaluate in AM with Manda Smith PA-C Jul 05, 2016 15:00
--- NOTE | 2016-07-05 15:50 | NUR ---
PAIN C/o pain under R breast which extends up to R shoulder, states its sharp. Doesn't hurt worse with deep breaths but is constantly there. Abdominal soreness/tenderness reported as well. Medicated with 1 tab percocet and scheduled ibuprofen, patient reported gaining relief from these medications. Ambulating into bathroom independently. Reports having BM yesterday. Continue hourly monitoring.
--- NOTE | 2016-07-05 16:45 | DRSVH ---
PROCEDURE: US ABDOMEN, LIMITED ([id number]) INDICATIONS: Persistent RUQ pain TECHNIQUE: Real-time focused scanning was performed of the abdomen, with image documentation. COMPARISON: [facility], CT, CT ANGIO CHEST PE, 07/04/2016, 12:26. [facility] , US, ABDOMEN LTD, 07/02/2016, 14:48. FINDINGS: Limited evaluation demonstrates no fluid within the gallbladder fossa status post recent ch olecystectomy. IMPRESSION: No fluid within the gallbladder fossa post recent cholecystectomy. Dictated by: Hector PARNELL Interpreted: Venkata Scott MD on 07/05/2016 at 16:43 Transcribed by: NICOLE on 07/05/2016 at 16:44 Approved by: Venkata Scott M.D. on 07/05/2016 at 16:55
[2016-07-05 17:23] VITALS: BP 145/91; PULSE 85; RESP 16; O2SAT 98
[2016-07-05] MEDS ORDERED: Albuterol 2.5 mg/3 mL Inhalation Solution NEB PRN (17:30)
[2016-07-05 20:08] VITALS: BP 131/83; PULSE 78; RESP 20; O2SAT 97
[2016-07-06 03:44] VITALS: PULSE 71; RESP 16; O2SAT 98
--- NOTE | 2016-07-06 03:54 | NUR ---
Pain Pain in chest/shoulder managed with percocet- Pt willing to utilize ibuprofen if it is available PRN. Pt ate turkey off of her sandwich for dinner- states some things are still 'hard to swallow' and accepted pudding as well. Requested prn nebulizer- LS clear and not SOB. Independent in room, good PO intake and IV saline locked. Pt vocalizes desire to go home. Care continues
[2016-07-06 04:55] VITALS: BP 113/70; PULSE 105; RESP 20; O2SAT 93
[2016-07-06] MEDS: oxyCODONE-Acetamin 5-325 mg Tablet PO PRN (07:06)
[2016-07-06] MEDS ORDERED: Pantoprazole 40 mg ER24 Tablet PO SCH (08:30)
[2016-07-06] MEDS ORDERED: Pantoprazole 20 mg ER24 Tablet PO SCH (08:30)
[2016-07-06] MEDS ORDERED: PANT40TA3 PO (08:39)
[2016-07-06] MEDS ORDERED: HYDR-4003 PO (08:39)
--- NOTE | 2016-07-06 08:41 | PCM.DISURG ---
Surgical Discharge Instruction Date of Service Jul 06, 2016 Dates of Hospitalization Date of Hospital Admission Jul 02, 2016 at 15:39 Providers Admitting Physician: Jazmin Horne MD Primary Care Physician: Raz Thibodeaux DO Attending Physician: Jazmin Horne MD Discharge Diagnosis Discharge Diagnosis Cholecystitis Post Operative diagnosis Early acute cholecystitis Diet Discharge Diet: No restrictions Activity Discharge Activity-General: No lifting >15 pounds for 2 weeks Dressing and Incisional Care Dressing Care: Allow Steri Stripes to fall off Hygiene: May shower Additional Instructions Discharge Instructions Follow up with Dr. Horne in 1-3 weeks. Follow Up Plan Follow Up Plan 1. Assess nausea/vomiting at follow up visit. 2. Consider re-imaging for pleural effusion at follow up visit. 3. Consider upper endoscopy depending on symptoms at follow up visit. Call your provider for: Fever, Chills, Shortness of breath, Increasing abdominal pain, Vomiting, Increasing wound pain, Discharge @ incision, pus discharge Jazmin Horne MD Jul 06, 2016 08:41
--- NOTE | 2016-07-06 08:45 | PCM.PNSURG ---
Subjective Visit Information: Reason for Visit Upper Abdominal Pain Surgery/Surgery Date Post-Op Day # Date of Admission: Jul 02, 2016 at 15:39 Hospital Day # Subjective: Stable overnight. Tolerating a general diet. Tolerated >10 12-oz cups of fluids. Mild RUQ pain. LFTs unremarkable. Objective Vital Sign- Last 8 Hours Date Time Temp Pulse Resp B/P Pulse Ox O2 Delivery O2 Flow Rate FiO2 07/06/16 04:55 36.4 105 20 113/70 93 Room Air 07/06/16 03:44 71 16 98 Room Air Intake and Output- Last 8 Hour 07/06/16 Cumulative From/Thru 07:00 07/02/16 11:19 - 07/06/16 06:23 Intake Total 200 ml 38633 ml Output Total 2250 ml 48564 ml Balance -2050 ml -3671 ml Intake Oral 200 ml 4483 ml IV Total 6347 ml Output Urine Total 2250 ml 70111 ml Estimated Blood Loss 1 ml General: Alert, Oriented X3, Cooperative, No Acute Distress Abdomen: Appropriately tender, Other (perirectal abscess without fluctuance or induration) Result Diagram: 07/03/16 0620 07/05/16 1520 Assessment & Plan Impression Stable, mild RUQ pain, N/V/ resolved, s/p cholecystectomy Tuesday Problems: Plan 1. Samuel removed from perirectal abscess 2. Discharge today 3. f/u in my office 1-3 weeks to discuss RUQ pain, pleural effusion, N/V, need for endoscopy 4. General diet as tolerated Jazmin Horne MD Jul 06, 2016 08:45
--- NOTE | 2016-07-06 08:53 | NUR ---
Social Work- Discharge Data: EMR reviewed. Pt is on day 4 of hospitalization for upper abdominal pain per H&P. Pt is POD 4. Pt to discharge today. Per RN notes, pt is independent in room. Pt to discharge home with family to transport via POV. No discharge needs. Assessment: [place]. Plan: Pt to discharge home with family to transport via POV. No discharge needs. SHAWN Perrin
[2016-07-06] MEDS: levoFLOXacin 750 mg Tablet PO SCH (09:01)
[2016-07-06] MEDS: DULoxetine 30 mg DR Capsule PO SCH (09:02)
[2016-07-06] MEDS: lamoTRIgine 100 mg Tablet PO SCH (09:04)
[2016-07-06] MEDS: 0.9% Sodium Chloride 1,000 ML IV SCH (09:39)
--- NOTE | 2016-07-06 11:24 | NUR ---
Discharge Pt is very excited to be going home. Pain well controlled with Percocet, pt understands that Dr. Horne has given prescription for Vicodin as this was tolerated at home well. Dr. Horne also DC'd patients Plain drain and will communicate this with Dr. Charlton. Pt showered and tolerated well. Diet general for breakfast and pt was without nausea.
--- NOTE | 2016-07-06 12:39 | PATH ---
SURGICAL PATHOLOGY Attending Physician:Jazmin Horne MD CASE STATUS: Signed Out PATIENT NAME: ASHLEY FAY PID: [id number] : 1975 DATE COLLECTED:07/02/2016 00:00 SPECIMEN: Gallbladder CLINICAL HISTORY: T ABD PAIN CHOLECYSTITIS 1). GALLBLADDER FINAL DIAGNOSIS: 1.GALLBLADDER: CHRONIC CHOLECYSTITIS WITH CHOLELITHIASIS. CHOLESTEROLOSIS. NO EVIDENCE OF MALIGNANCY. ICD10 CODE K80.6 GROSS DESCRIPTION: The specimen is received in one formalin filled container labeled with the patient's name, sublabeled "gallbladder" and consists of an intact 8.0 x 3.5 x 3.0 CM gallbladder. The serosa is smooth. The wall is 0.2-0.4 CM in thickness. The mucosa is a yellow-green in color. The lumen contains a dark green mucoid material in one green rough calculus which measures 1.1 CM in greatest dimension. 5 outside medical sales representative sections are submitted in one cassette. 07/03/2016 DAC MICRO DESCRIPTION: See diagnosis. ICD-9 CODES: CPT CODES: 1: 16048 Electronically Signed Out Mario Yanez MD [facility] Pathology [facility] [address], [place] [address] Technical component performed at [facility], [address] [place] [address] Ave[address], [place], [address]
--- NOTE | 2016-07-07 13:30 | PCM.DC.SUR ---
Discharge Summary Date of Service: Date of Hospital Admission: Jul 02, 2016 at 15:39 Date of Operation(s): July 02, 2016 Date of Discharge: July 06, 2016 Diagnosis at Time of Discharge Primary Diagnosis: Early acute cholecystitis Secondary Diagnosis 1. PTSD. 2. Bipolar. 3. OCD. 4. Sleep apnea. 5. GERD. 6. Hyperlipidemia. 7. Hypertension. 8. History of chronic nausea and vomiting s/p endoscopy 2013 9. Family h/o colon cancer s/p colonoscopy 2016 10. Obesity BMI 30.9 Surgical History: 1. Hysterectomy. 2. Tonsillectomy. 3. Tubal ligation. 4. Left shoulder surgery. 5. Left facial surgeries status post traumatic injury. Problems: Operation Laparoscopic cholecystectomy with intraoperative cholangiogram, with interpretation Brief History and Physical: This is a 41-year-old woman who presents to the emergency department with several days of right upper quadrant pain and tenderness as well as nausea and vomiting. Abdominal ultrasound revealed cholelithiasis and sonographic [place] sign. She was diagnosed with probable acute cholecystitis and therefore laparoscopic cholecystectomy was planned. Consultants: General surgery: Dr. Jazmin Horne Hospital Course: 41 yo female S/P Laparoscopic Cholecystectomy surgically stable but with persistent RUQ pain. Postop plan: 1. Spoke with Dr. Villanueva, he is more than happy to scope the patient regarding esophageal thickening on CT scan but would like a little more workup 2. Abdominal Ultrasound to R/O any fluid collection; Normal U/S 3. CMP. Unremarkable 4. Increase Protonix from 20 mg to 40 mg daily 5. Patient may eat. Tolerated general diet 6. Re-evaluate in AM with Dr. Horne. Discharged home 07/06/16 Pathology: FINAL DIAGNOSIS: 1.GALLBLADDER:CHRONIC CHOLECYSTITIS WITH CHOLELITHIASIS. CHOLESTEROLOSIS. NO EVIDENCE OF MALIGNANCY. Disposition: Home Follow-up Plan: Dr. Horne 1-3 weeks Albuterol HFA (Proair HFA) 8.5 Gm Hfa.aer.ad 2 PUFFS INHALATION Q4H PRN PRN For Shortness of Breath (Reported) Alprazolam (Alprazolam) 1 Mg Tablet 1 MG PO BID (Reported) Aripiprazole (Aripiprazole) 5 Mg Tablet 5 MG PO DAILY (Reported) Cholecalciferol (Vitamin D3) (Vitamin D3) 2,000 Unit Tablet 2,000 UNIT PO DAILY (Reported) Citalopram (Citalopram) 40 Mg Tablet 40 MG PO DAILY (Reported) Duloxetine (Cymbalta) 60 Mg Capsule.dr 60 MG PO BID (Reported) Gabapentin (Gabapentin) 600 Mg Tablet 600 MG PO BID (Reported) Hydrocodone-Acetaminophen 5-325 mg (Hydrocodone-Acetaminophen 5-325 mg) 1 Each Tablet 1 TABLET PO QID PRN PRN For Pain Ibuprofen (Ibuprofen) 600 Mg Tablet 600 MG PO DAILYWL (Reported) Lamotrigine (Lamotrigine) 150 Mg Tablet 150 MG PO DAILY (Reported) Levofloxacin (Levofloxacin) 750 Mg Tablet 750 MG PO DAILY (Reported) Lovastatin (Lovastatin) 20 Mg Tablet 20 MG PO HS (Reported) Metronidazole (Metronidazole) 500 Mg Tablet 500 MG PO TID (Reported) Pantoprazole DR (Pantoprazole DR) 40 Mg Tablet.dr 40 MG PO BID Pramipexole Dihydrochloride (Mirapex) 0.5 Mg Tablet 0.5 MG PO HS (Reported) Prazosin (Prazosin) 2 Mg Capsule 2 MG PO HS (Reported) Sumatriptan (Imitrex) 25 Mg Tablet 25-50 MG PO DAILY PRN PRN Headache (Reported ) Topiramate (Topiramate) 25 Mg Tablet 25 MG PO DAILY (Reported) copies to: Raz Thibodeaux Sherri L PA-C Jul 07, 2016 13:29
[2016-07-28] MEDS ORDERED: BUSP15TA3 PO (14:55)
[2016-07-28] MEDS ORDERED: CHOL200047 PO (14:55)
== END 2016-07-06 10:50 | disposition home or self-care (01) | DRG 418 ==
LOC: SED 11:10 → OSC 15:39 → OBSVTOIN 15:39
PROVIDERS: ADMIT Surgery; ATTEND Surgery
PROC: BF101ZZ Fluoroscopy of Bile Ducts using Low Osmolar Contrast (ICD-10-PCS; 2016-07-02)
PROC: 0FT44ZZ Resection of Gallbladder, Percutaneous Endoscopic Approach (ICD-10-PCS; principal; 2016-07-02 18:00)
DX: K80.00 Calculus of gallbladder with acute cholecystitis without obstruction (principal); K61.1 Rectal abscess; K21.9 Gastro-esophageal reflux disease without esophagitis; F17.200 Nicotine dependence, unspecified, uncomplicated

== ENCOUNTER 2016-07-24 16:15 | Emergency (ER) | payer OTHER ==
[~2016-07-24] VITALS: Ht 172.7 cm; Wt 81.8 kg
[~2016-07-24 16:15] MED LIST changes: +LEVO750T39 PO; -LEVO750T9 PO; -METR500T PO; +METR500T19 PO; -OMEP20TA24 PO; +PANT40TA3 PO
[2016-07-24 16:19] VITALS: BP 143/95; PULSE 82; RESP 20; O2SAT 100
--- NOTE | 2016-07-24 16:28 | ED.REPORT ---
HPI-General Illness Date of Service Jul 24, 2016 ED Provider: Dr. Duarte Pt is a 41 y/o female w/ a hx of perianal abscess, presenting to the ED c/o rectal discharge onset last night. She was initially diagnosed with a perianal abscess which extended into the muscle at [facility]. She saw surgeon Dr. Charlton about 2 days later who placed a drain. Two weeks ago she experienced coincidental cholecystitis and surgeon Dr. Horne performed a cholecystectomy as well as removal of the rectal drain. She states that she was also concerned about possible appendicitis but opted to observe it as an outpatient. Last night , she experienced induration of the left gluteus and woke up in the middle of the night diaphoretic experiencing fever, chills, purulent rectal discharge, nausea, lightheadedness, all which have persisted throughout the day. Nursing Notes Stated Complaint: PERIARIAL DRAIN Chief Complaint: General Complaint Nursing Notes Reviewed: Yes Allergies: Coded Allergies: erythromycin base (Verified Allergy, Severe, Anaphylaxis, 07/02/16) venom-honey bee (Verified Allergy, Severe, Anaphylaxis, 07/02/16) Penicillins (Verified Allergy, Intermediate, Anaphylaxis, 07/02/16) Sulfa (Sulfonamide Antibiotics) (Verified Allergy, Unknown, 07/02/16) rash, vomiting Uncoded Allergies: MISC (Allergy, Unknown, all penicillin derived abx, 06/29/16) Scheduled Alprazolam (Alprazolam) 1 Mg Tablet 1 MG PO BID Aripiprazole (Aripiprazole) 5 Mg Tablet 5 MG PO DAILY Cephalexin (Keflex) 500 Mg Capsule 500 MG PO QID Cholecalciferol (Vitamin D3) (Vitamin D3) 2,000 Unit Tablet 2,000 UNIT PO DAILY Citalopram (Citalopram) 40 Mg Tablet 40 MG PO DAILY Duloxetine (Cymbalta) 60 Mg Capsule.dr 60 MG PO BID Gabapentin (Gabapentin) 600 Mg Tablet 600 MG PO BID Ibuprofen (Ibuprofen) 600 Mg Tablet 600 MG PO DAILYWL Lamotrigine (Lamotrigine) 150 Mg Tablet 150 MG PO DAILY Levofloxacin (Levofloxacin) 750 Mg Tablet 750 MG PO DAILY Lovastatin (Lovastatin) 20 Mg Tablet 20 MG PO HS Metronidazole (Metronidazole) 500 Mg Tablet 500 MG PO TID Pantoprazole DR (Pantoprazole DR) 40 Mg Tablet.dr 40 MG PO BID Pramipexole Dihydrochloride (Mirapex) 0.5 Mg Tablet 0.5 MG PO HS Prazosin (Prazosin) 2 Mg Capsule 2 MG PO HS Topiramate (Topiramate) 25 Mg Tablet 25 MG PO DAILY Scheduled PRN Albuterol HFA (Proair HFA) 8.5 Gm Hfa.aer.ad 2 PUFFS INHALATION Q4H PRN PRN For Shortness of Breath Hydrocodone-Acetaminophen 5-325 mg (Hydrocodone-Acetaminophen 5-325 mg) 1 Each Tablet 1 TABLET PO QID PRN PRN For Pain Sumatriptan (Imitrex) 25 Mg Tablet 25-50 MG PO DAILY PRN PRN Headache General Time Seen by MD: 16:27 Chief Complaint Other (Rectal discharge) Hx Obtained From: Patient Arrived By: Walk-in Sudden in Onset?: Yes Onset Occurred: 5 - 8 hours ago Symptom Duration: Since onset Quality: Painful Radiation: : Does not radiate Severity: Current: Mild Severity: Maximum: Moderate Recent Healthcare: Recent doctor visit, Recent testing, Previous diagnosis, Prior workup Similar Sx Previous: Yes Past Medical History Past Medical History PTSD Bipolar OCD Sleep apnea Reports: GERD, Hyperlipidemia, Hypertension, Mental illness Past Surgical History Facial bone repair Left shoulder surgery Perianal abscess drain placement and subsequent removal - Dr. Charlton Cholecystectomy - Dr. Horne Reports: Hysterectomy, Tonsillectomy Reports: Tubal ligation Smoking History Current Every Day Smoker Social History Other Social History: Good social support Ambulatory Status Independent Review of Systems +rectal discharge and pain Full Review of Systems Constitutional: Reports: Chills, Fever, Weakness - generalized Respiratory: Denies: Non-productive cough, Shortness of breath Cardiovascular: Denies: Chest pain, Dyspnea on exertion GI: Reports: Nausea, Denies: Abdominal pain, Diarrhea, Vomiting Skin: Reports Diaphoresis, Reports Rash, Reports Swelling, Denies Bruising Neurologic: Reports: Lightheaded, Denies: Headache Complete sys rev & neg: except as marked. Physical Exam Vital Signs Vital Signs Date Time Temp Pulse Resp B/P Pulse Ox O2 Delivery O2 Flow Rate FiO2 07/24/16 19:24 86 127/88 07/24/16 16:19 36.3 82 20 143/95 100 Room Air Initial VS: Reviewed, Vital signs normal Head / Eyes: Atraumatic, Normocephalic, PERRL ENT: Mucous membranes moist, Conjunctiva normal, No scleral icterus Neck: Supple, Full range of motion Respiratory: Breath sounds normal, Clear to auscultation, No respiratory distress Cardiovascular: Regular rate & rhythm, Heart sounds normal, Intact distal pulses Extremities: Vascular intact, Neuro intact, No swelling, No tenderness Skin: Warm, Dry, No cyanosis Neurologic: Alert, Oriented, Nonfocal Psychiatric: Mood/affect normal, Behavior normal, Normal thought content General/Constitutional: Awake, Alert, No acute distress, Cooperative, Not toxic appearing Abdomen: Atraumatic, Soft, No guarding, No rebound, No distention, No palpable mass Tenderness/Guarding/Rebound: Positive: Tender RUQ... (Mild) Well healing incision sites Rectum / Perineum: Atraumatic, No gross blood, No fecal impaction, No fissures , No hemorrhoids 1 mm opening in the left perianal region with some greenish-yellow drainage Interpretation & Diagnostics Lab Results Interpretation Result Diagram: 07/24/16 1800 07/24/16 1800 Test 07/24/16 18:00 07/24/16 18:25 White Blood Count 11.3th/mm3 (3.8-10.1) Red Blood Count 4.87mil/mm3 (3.90-5.20) Hemoglobin 14.6g/dL (12.0-15.6) Hematocrit 43.5% (35.0-46.0) Mean Corpuscular Volume 89.3fL (81-100) Mean Corpuscular Hemoglobin 30.0pg (27.0-35.0) Mean Corpuscular Hemoglobin Concent 33.6% (32.0-37.0) Red Cell Distribution Width 14.0% (12.3-15.4) Platelet Count 238bil/L (150-400) Neutrophils (%) (Auto) 57.3% (40-74) Lymphocytes (%) (Auto) 32.0% (14-46) Monocytes (%) (Auto) 8.9% (4-12) Eosinophils (%) (Auto) 0.9% (0-5) Basophils (%) (Auto) 0.5% (0-3) Erythrocyte Sedimentation Rate 14mm/hr (0-32) Sodium Level 140mEq/L (134-144) Potassium Level 4.4mEq/L (3.5-5.2) Chloride Level 102mEq/L (97-108) Carbon Dioxide Level 23mmol/L (18-29) Blood Urea Nitrogen 10mg/dL (6-20) Creatinine 0.72mg/dL (0.57-1.00) Estimat Glomerular Filtration Rate 129mL/min (>59) Glucose Level 96mg/dL (60-99) Lactic Acid Level 0.7mmol/L (0.4-2.0) Calcium Level 10.3mg/dL (8.5-10.1) Total Bilirubin 0.4mg/dL (0.0-1.2) Aspartate Amino Transf (AST/SGOT) 16U/L (0-50) Alanine Aminotransferase (ALT/SGPT) 31U/L (0-32) Alkaline Phosphatase 73U/L (25-150) Total Protein 7.6g/dL (6.4-8.4) Albumin 4.5g/dL (3.4-5.0) Urine Color Yellow (YELLOW) Urine Appearance Slightly cloudy Urine pH 5.5 (5.0-8.0) Urine Specific [place] 1.028 (1.003-1.035) Urine Protein Negativemg/dL (NEG,TRACE) Urine Glucose (UA) Negativemg/dL (NEGATIVE) Urine Ketones Tracemg/dL (NEGATIVE) Urine Occult Blood Trace (NEGATIVE) Urine Nitrite Negative (NEGATIVE) Urine Bilirubin Negative (NEGATIVE) Urine Urobilinogen Normalmg/dL (NORMAL) Urine Leukocyte Esterase Negative (NEGATIVE) Urine RBC 0-2/hpf (0-2) Urine WBC 0-5/hpf (0-5) Urine Epithelial Cells Many/hpf (NONE-MOD) Urine Crystals None seen (NONE SEEN) Urine Bacteria Moderate/hpf (NONE-FEW) Urine Hyaline Casts None/lpf (NONE) Urine Granular Casts None seen (NONE SEEN) Urine Waxy Casts None seen (NONE SEEN) Urine Red Blood Cell Casts None seen (NONE SEEN) Urine White Blood Cell Casts None seen (NONE SEEN) Urine Mucus Present (None Seen) Urine Trichomonas None seen (NONE SEEN) Urine Yeast None (NONE SEEN) Urinalysis Comment None Urine Culture Reflexed Indicated Procedures Incision & Drainage Abscess I & D Abscess: No incision. Hemostats used to spread opening. 1/4 inch gauze packing placed Time: 18:21 Procedure Performed by: ED physician Location of Abscess: Left perirectal abscess Skin Preparation Agent: Normal saline Pus Drained: Small, Purulent discharge Irrigation: Yes, Copious Post-Procedure / Complications: Packing placed, Culture obtained, No complications, Condition improved, Tolerated procedure well, Patient stable Re-Eval/Medical Decision Time of Eval: 18:22 Re-Evaluation/Progress Note: Pt rechecked. Packing placed. Informed pt of plan for treatment. Pt understands and agrees with plan for treatment. F/U and RTER warnings given. All questions addressed. Consultation : Referral / Consult Name: Jones Bragg MD Consulted With: Surgeon Call Returned at: 18:14 Flash Ranging Crewmember: Agrees with eval, Agrees with plan Note: Recommends open, rinse, place packing, prescribe Keflex, F/U with Dr. Charlton on Tuesday. Counseled Regarding: Diagnosis, Lab results, Need for follow-up, When/why to return to ED Discharge & Departure Primary Impression: Perirectal abscess Disposition: Home Discharge Condition All VS Reviewed: Yes Condition: Stable Patient Instructions: Abscess (ED) Additional Instructions: Your emergency room evaluation today included an interview, physical exam, laboratory studies, and consultation with general surgery. There are no signs of sepsis or systemic infection. Dr. Bragg recommended that we open up the draining abscess a little further, rinse it out with saline, and place packing gauze. Your treated with pain medication for this procedure. Dr. Bragg also recommends that you take Keflex which you have been prescribed. Please call Dr. Charlton's office on Tuesday to schedule an appointment for further evaluation/treatment. The wound will continue to drain which is normal. Please avoid wiping so as not to remove the packing. You can use a spray bottle or baths to help clean yourself after using the bathroom. Take the pain medications you have at home as prescribed, as needed Return to the ER if you develop new or worsening symptoms. Referrals: Raz Thibodeaux DO (PCP) Noel Charlton MD Attestation Portions of this note were transcribed by Kevin Rucker. I, Dr. Duarte personally performed the history, physical exam and medical decision-making; I reviewed and confirmed the accuracy of the information in the transcribed note. Signed by Gerald Obregon, 07/24/16 - [id number] copies to: Noel Charlton MD; Raz Thibodeaux Gary R DO Jul 24, 2016 16:27 KEVIN RUCKER Jul 24, 2016 17:09
[2016-07-24] MEDS ORDERED: HYDROcodone-APAP 5-325 mg Tablet PO ONE (17:25)
[2016-07-24 18:09] LABS: BASOPHILS % (AUTO) 0.5 % (0-3); EOSINOPHILS % (AUTO) 0.9 % (0-5); MONOCYTES % (AUTO) 8.9 % (4-12); Mean Corpuscular Volume 89.3 fL (81-100); NEUTROPHILS % (AUTO) 57.3 % (40-74); Platelet Count 238 bil/L (150-400)
[2016-07-24 18:28] LABS: ERYTHROCYTE SEDIMENTATION RATE 14 mm/hr (0-32)
[2016-07-24] MEDS ORDERED: HYDROmorphone 1 mg/mL Inj IM ONE (18:50)
[2016-07-24] MEDS ORDERED: HYDROmorphone 1 mg/mL Inj IVPUSH ONE (18:50)
[2016-07-24] MEDS ORDERED: CEPH-512 PO (19:11)
[2016-07-24 19:24] VITALS: BP 127/88; PULSE 86
[2016-07-24 19:24] LABS: APPEARANCE,URINE SLIGHTLY CLOUDY (CLEAR,HAZY); COLOR,URINE YELLOW (YELLOW); PH,URINE 5.5 (5.0-8.0)
[2016-07-24 19:26] LABS: OCCULT BLOOD,URINE TRACE (NEGATIVE); UROBILINOGEN,URINE NORMAL (NORMAL)
[2016-07-28] MEDS ORDERED: BUSP15TA3 PO (14:55)
[2016-07-28] MEDS ORDERED: CHOL200047 PO (14:55)
== END 2016-07-24 19:25 | disposition home or self-care (01) ==
LOC: SED 16:15
DX: K61.1 Rectal abscess (principal); I10 Essential (primary) hypertension; K21.9 Gastro-esophageal reflux disease without esophagitis; E78.5 Hyperlipidemia, unspecified; F43.10 Post-traumatic stress disorder, unspecified; F17.200 Nicotine dependence, unspecified, uncomplicated; Z90.710 Acquired absence of both cervix and uterus; Z79.899 Other long term (current) drug therapy; Z88.0 Allergy status to penicillin; Z88.1 Allergy status to other antibiotic agents; Z88.2 Allergy status to sulfonamides
CPT/HCPCS: 46050; 80053; 81000; 81025; 83605; 85025; 85651; 87040; 87086; 87088; 96374; 99284; J1170

== ENCOUNTER 2016-07-26 16:13 | Day surgery (SDC) | payer OTHER ==
[~2016-07-26 16:13] MED LIST changes: +CEPH-512 PO
[2016-07-26 17:32] LABS: BASOPHILS % (AUTO) 0.9 % (0-3); EOSINOPHILS % (AUTO) 1.1 % (0-5); MONOCYTES % (AUTO) 9.1 % (4-12); Mean Corpuscular Hemoglobin 29.2 pg (27.0-35.0); Mean Corpuscular Volume 90.2 fL (81-100); Platelet Count 225 bil/L (150-400)
--- NOTE | 2016-07-26 22:39 | OUT PROG ---
[address] [address] PROGRESS NOTE PATIENT: ASHLEY FAY : 1975 MR#: [id number] ADMIT: 07/26/2016 JOB ID: [id number] IDENTIFICATION AND CHIEF COMPLAINT: A 41-year-old female status post incision and drainage of perirectal abscess. HISTORY OF PRESENT ILLNESS: The patient has previously had her perirectal abscess drained by Dr. Charlton, shortly followed after that with a laparoscopic cholecystectomy by Dr. Horne. Her perirectal abscess had been healing. She was seen in the emergency department two days before, after she had felt a firmness and pain in her buttocks, followed by ejection of blood and pus. In the emergency department, they inspected the area and packed this. The packing was then removed. The patient had routine followup regarding her chronic right upper quadrant pain issues with Dr. Horne today and mentioned that she was feeling weak and tired. Dr. Horne was concerned that the patient might need incision and drainage, and the patient has been sent over to Day Surgery, where I am seeing her. In discussing this with the patient, she does not feel that the firmness has reaccumulated since two days ago in the emergency department. She denies fevers or sweats. Her primary complaint is of her right upper quadrant pain, though she does note that her buttocks is sore. PAST MEDICAL HISTORY: Unchanged. MEDICATIONS: She is on Keflex. ALLERGIES: Multiple allergies per the medical record. PHYSICAL EXAMINATION: She is afebrile. Heart and lungs are unremarkable. Directed examination of her buttocks reveals a well-healing buttocks incision without firmness, without expressible pus, and without particular tenderness or erythema. LABORATORIES: Show that her hematocrit is 40.5 and her white count is 8.2, which compared to a white count of 11.3, two days ago, and hematocrit of 43. IMPRESSION AND PLAN: She seems to be doing well over the past two days and I think that it would be a disservice for her to make a larger incision. It appears that she is less hemoconcentrated than a few days ago and her white count is down. She has no signs of undrained abscess. Rather than take her to the operating room and subject her to general anesthetic and blind probing, I think she can be discharged, continue her Keflex. I will discuss her care with Dr. Horne tomorrow and we may repeat the CAT scan, or we may just continue with the current course of antibiotics.
[2016-07-28] MEDS ORDERED: BUSP15TA3 PO (14:55)
[2016-07-28] MEDS ORDERED: CHOL200047 PO (14:55)
== END 2016-07-26 23:59 | disposition home or self-care (01) ==
LOC: ORA 16:13 → SAS 23:59
PROVIDERS: ATTEND Surgery
DX: K61.1 Rectal abscess (principal); Z53.8 Procedure and treatment not carried out for other reasons

== ENCOUNTER 2016-07-29 13:03 | Day surgery (SDC) | payer OTHER ==
[~2016-07-29] VITALS: Ht 172.7 cm; Wt 85.0 kg
[~2016-07-29 13:03] MED LIST changes: +BUSP15TA3 PO; -CEPH-512 PO; +CHOL200047 PO; -LEVO750T39 PO; +fentaNYL-PF 50 mCg/mL 2 mL Inj IVPUSH PRN
[2016-07-29 13:17] VITALS: BP 126/82; PULSE 105; RESP 16; O2SAT 100
[2016-07-29] MEDS ORDERED: 0.9% Sodium Chloride 1,000 ML IV ONE ×2 (14:36)
[2016-07-29 15:11] VITALS: BP 121/80; PULSE 85; RESP 16; O2SAT 98
[2016-07-29 15:23] VITALS: BP 114/71; PULSE 83; RESP 16; O2SAT 97
--- NOTE | 2016-07-29 15:30 | ENDO ---
[address] [address] ENDOSCOPY PROCEDURE PATIENT: ASHLEY FAY : 1975 MR#: [id number] ADMIT: 07/29/2016 JOB ID: [id number] DATE: 07/29/2016 PREPROCEDURAL DIAGNOSIS: Hematemesis. POSTPROCEDURAL DIAGNOSIS: Hematemesis. PROCEDURE PERFORMED: Upper endoscopy with biopsy. SURGEON: Jazmin Horne M.D. INSTRUMENT: Olympus GIF H 190. MEDICATIONS: 1. Versed 5 mg. 2. Fentanyl 100 mcg. HISTORY OF PRESENT ILLNESS: This is a 41-year-old woman who presented to the emergency department with right upper quadrant abdominal pain and hematemesis in early June. Workup was performed and her pain was attributed to cholecystitis. She underwent laparoscopic cholecystectomy. Her hematemesis ultimately resolved but she continued to have right upper quadrant abdominal/low chest pain. For this reason, upper endoscopy was performed to evaluate closely etiology of hematemesis as well as abdominal pain. FINDINGS: 1. LA grade A esophagitis. 2. Mild gastritis, biopsied. DESCRIPTION OF PROCEDURE: The patient was brought to the procedure suite and placed in left lateral decubitus position. Moderate sedation was induced. A bite block was placed. The endoscope was advanced into the esophagus. The GE junction was noted at 36 cm. There was mild LA grade A esophagitis. There was no hiatal hernia. Endoscope was advanced into the stomach. Mild-moderate gastritis was encountered in the body, and it was photographed and biopsied. There was no sign of masses or ulcerations. There were no polyps. The endoscope was advanced into the third portion of the duodenum. The entire visualized duodenum appeared normal. Retroflexed examination of the gastroesophageal junction revealed a Hill grade I flap valve. The endoscope was withdrawn. The patient tolerated the procedure well. ESTIMATED BLOOD LOSS: None. SPECIMENS: Gastric body. COMPLICATIONS: None.
[2016-07-29 15:38] VITALS: BP 126/79; PULSE 88; RESP 16; O2SAT 98
--- NOTE | 2016-08-02 13:05 | PATH ---
SURGICAL PATHOLOGY Attending Physician:Jazmin Horne MD CASE STATUS: Signed Out PATIENT NAME: ASHLEY FAY PID: [id number] : 1975 DATE COLLECTED:07/29/2016 00:00 SPECIMEN: Gastric, Biopsy CLINICAL HISTORY: 1). GREATER CURVE GASTRIC BODY BIOPSY FINAL DIAGNOSIS: Gastric Body Biopsy, Greater Curvature: Mild chronic gastritis involving fundic mucosa. Negative for evidence of Helicobacter. Negative for intestinal metaplasia. Negative for dysplasia and malignancy. ICD10 K29.70 GROSS DESCRIPTION: The specimen is received in one formalin filled container labeled with the patient's name, sublabeled "greater curve gastric body" and consists of a 0.3 x 0.3 x 0.3 CM portion of tissue which is entirely submitted in one cassette. 07/30/2016 [facility] ICD-9 CODES: CPT CODES: 1: 43587 Electronically Signed Out Gokul Bonds MD [facility] [address], [place] [address] Technical component performed at [facility], [address] [place] [address] Ave[address], [place], [address]
== END 2016-07-29 23:59 | disposition home or self-care (01) ==
LOC: END 13:03
PROVIDERS: ATTEND Surgery
DX: K29.50 Unspecified chronic gastritis without bleeding (principal); F41.9 Anxiety disorder, unspecified; G47.33 Obstructive sleep apnea (adult) (pediatric); F43.12 Post-traumatic stress disorder, chronic; G89.4 Chronic pain syndrome; G25.81 Restless legs syndrome; J90 Pleural effusion, not elsewhere classified
CPT/HCPCS: 43239; 88305; G0500; J7030

== ENCOUNTER 2016-09-22 14:40 | Day surgery (SDC) | payer OTHER ==
[2016-09-22] VITALS (12 sets, daily range): BP systolic 119–152; BP diastolic 50–83; PULSE 92–107; RESP 13–31; O2SAT 92–99
[~2016-09-22] VITALS: Ht 172.7 cm; Wt 86.7 kg
[~2016-09-22 14:40] MED LIST changes: -BUSP15TA3 PO; -CHOL200025 PO; -fentaNYL-PF 50 mCg/mL 2 mL Inj IVPUSH PRN
[2016-09-22] MEDS ORDERED: fentaNYL-PF 50 mCg/mL 2 mL Inj ONE (14:41)
[2016-09-22] MEDS ORDERED: Propofol 10,000 mCg/mL 20 mL Inj ONE (14:41)
[2016-09-22] MEDS ORDERED: Ketamine 10 mg/mL 20 mL Inj ONE (14:41)
[2016-09-22] MEDS ORDERED: Succinylcholine Chloride 20 mg/mL 5 mL Inj ONE (14:41)
[2016-09-22] MEDS ORDERED: Dexamethasone 4 mg/mL Inj ONE (14:41)
[2016-09-22] MEDS ORDERED: Ondansetron 2 mg/mL 2 mL Inj ONE (14:41)
[2016-09-22] MEDS ORDERED: ALBU0.63 INHALATION (15:27)
[2016-09-22] MEDS ORDERED: Lactated Ringer's 1,000 ML IV ONE ×2 (15:29→15:31)
[2016-09-22] MEDS ORDERED: Lactated Ringer's 1,000 ML IV SCH (15:31)
[2016-09-22] MEDS ORDERED: Lactated Ringer's 500 ML IV PRN (15:31)
[2016-09-22] MEDS ORDERED: Dexamethasone 4 mg/mL Inj IVPUSH PRN (15:35)
[2016-09-22] MEDS ORDERED: Phenylephrine 10,000 mCg/mL Inj IVPUSH PRN (15:35)
[2016-09-22] MEDS ORDERED: Labetalol 5 mg/mL 4 mL Inj IV PRN (15:35)
[2016-09-22] MEDS ORDERED: MetoCLOpramide 5 mg/mL 2 mL Inj IVPUSH PRN (15:35)
[2016-09-22] MEDS ORDERED: Ondansetron 2 mg/mL 2 mL Inj IVPUSH PRN (15:35)
[2016-09-22] MEDS ORDERED: EPHEDrine Sulfate 50 mg/mL Inj IVPUSH PRN (15:35)
[2016-09-22] MEDS ORDERED: hydrALAZINE 20 mg/mL Inj IVPUSH PRN (15:35)
--- NOTE | 2016-09-22 15:46 | PCM.HPANE ---
Patient Data Date of Service: September 22, 2016 Surgeon Admitting Provider: Attending Provider:Jazmin Horne MD Primary Care Physician:Raz Thibodeaux DO Other Provider:Macey Garcia Anesthesia Reason for Visit Anal Exam Under Anesthesia Ht/WT & BMI Height (Feet): 5 Height (Inches): 8 Weight (Kilograms): 86.7 Body Mass Index 28.00 Allergies Coded Allergies: erythromycin base (Verified Allergy, Severe, Anaphylaxis, 07/02/16) venom-honey bee (Verified Allergy, Severe, Anaphylaxis, 07/02/16) Penicillins (Verified Allergy, Intermediate, Anaphylaxis, 07/02/16) Sulfa (Sulfonamide Antibiotics) (Verified Allergy, Unknown, 07/02/16) rash, vomiting Uncoded Allergies: MISC (Allergy, Unknown, all penicillin derived abx, 06/29/16) Past Anesthesia History Anesthesia History: Denies:: Abnormal Airway, Anesthesia Reactions, Difficult Intubation, Fam Anesthesia Reaction, Fam Malignant Hypertherm, Malignant Hyperthermia Diabetes History Hx Diabetes?: No MRSA MRSA: No Medications Blood Thinner: Aspirin Home Meds Incl Beta Getachew: No Active Scripts Pantoprazole DR 40 Mg Tablet.dr40 Mg PO BID #60 CAPSULE Ref 2 Prov:Jazmin Horne MD 07/06/16 Hydrocodone-Acetaminophen 5-325 mg 1 Each Tablet1 Tablet PO QID PRN For Pain # 25 TABLET Ref 0 Prov:Jazmin Horne MD 07/06/16 Reported Medications Albuterol Neb Soln 0.63 Mg/3 Ml Vial.nebUnknown Dose INHALATION BID Ref 0 09/22/16 Cholecalciferol (Vitamin D3) (Vitamin D3)2,000 Unit Capsule2,000 Unit PO DAILY 07/28/16 Albuterol HFA (Proair HFA)8.5 Gm Hfa.aer.ad2 Puffs INHALATION Q4H PRN For Shortness of Breath #1 INHALER 06/29/16 Sumatriptan (Imitrex)25 Mg Yxnehp42-25 Mg PO DAILY PRN Headache 06/29/16 Prazosin 2 Mg Capsule2 Mg PO HS 06/29/16 Aripiprazole 5 Mg Tablet5 Mg PO DAILY 06/29/16 Lamotrigine 150 Mg Mkjyqm662 Mg PO DAILY Ref 0 06/29/16 Topiramate 25 Mg Hptigk57 Mg PO DAILY Ref 0 06/29/16 Gabapentin 600 Mg Xvdlwm188 Mg PO BID Ref 0 05/20/16 Pramipexole Dihydrochloride (Mirapex)0.5 Mg Tablet0.5 Mg PO HS 05/19/16 Lovastatin 20 Mg Crdnzx07 Mg PO HS #30 TABLET Ref 0 05/19/16 Ibuprofen 600 Mg Mggzfb886 Mg PO DAILYWL Ref 0 05/19/16 Duloxetine (Cymbalta)60 Mg Capsule.dr60 Mg PO BID Ref 0 05/19/16 Citalopram 40 Mg Hgbtxn11 Mg PO DAILY 30 Days Ref 0 05/19/16 Discontinued Reported Medications Metronidazole 500 Mg Ocrxvu196 Mg PO TID Ref 0 07/02/16 Alprazolam 1 Mg Tablet1 Mg PO BID Ref 0 05/19/16 History History of ENT Problems?: No HEENT History: Denies:: Abnormal Airway Difficult Intubation Dysphagia Hearing Problem Denture Type: None Teeth Condition: Within Normal Limits Hx of Heart Problems?: Yes Cardiovascular History: Positive for:: Hypertension Denies:: AICD Atrial Fibrillation Chest Pain Congestive Heart Failure Pacemaker Valvular Heart Disease Hx of Respiratory Problem?: Yes Respiratory History: Positive for:: Asthma Cough (FLUID IN LEFT LUNG) Denies:: COPD Hemoptysis Pneumonia Tuberculosis Hx Neurologic Problems?: Yes Neurological History: Positive for:: Headaches Denies:: CVA Dementia Seizures Hx of GI Problems?: Yes Hx of Problems?: No Genitourinary History: Denies:: Kidney Stones Urinary Tract Infection Female Hx: Denies:: Currently (tubal ligation) Endometriosis Pelvic Inflammatory Problems with Breasts? Hx Musculoskeletal Problems?: Yes Musculoskeletal History: Denies:: Back Injury Joint Replacement Musculoskeletal Trauma Hx of Psycho/Social Problems?: Yes Psycho Social History: Positive for:: Anxiety Bipolar Disorder Hx Depression Denies:: Suicide Attempt Hx Surgeries?: Yes (DEBORAH, CERVICAL ABLATIONS, DRAIN FOR BUTTOCK, SHOULDER, FACIAL, TONSILS) Hx Any Other Health Problems?: Yes Other History: Positive for:: Hospitalization Denies:: Cancer Thyroid Disease History Blood Transfusions: Denies:: Blood Transfuse Reaction Blood Transfusions Hx Diabetes: No Hx Alcohol Use: NoHx Substance Use: No Smoking Status: Current Every Day Smoker Have You Smoked inLast 12 mo: Yes Stop/Bang Treated for Sleep Apnea?: Yes Risk Assessment Category Category 1A: Patient has history of documented sleep apnea, and HAS NOT received any narcotic, sedative or anesthesia administration during this stay. Category 1B: Patient has history of documented sleep apnea, and HAS received any narcotic , sedative or anesthesia administration during this stay Category 2: Patient has SUSPECTED Obstructive Sleep Apnea, and HAS received any narcotic , sedative or anesthesia administration during this stay. Category 3: Patient has SUSPECTED Obstructive Sleep Apnea and HAS NOT received narcotic, sedative or anesthesia administration during this stay. Category 4: Outpatient in Procedural Areas with known sleep apnea or who screen positive for High Risk via the STOP/BANG questionnaire. Exam Exam Vital Signs Vital Signs Date Time Temp Pulse Resp B/P Pulse Ox O2 Delivery O2 Flow Rate FiO2 09/22/16 15:05 36.7 92 15 124/82 99 Room Air General Appearance: Alert, Oriented X3, Cooperative, No Acute Distress HEENT/AIRWAY: MP 2 Lungs: Clear to Auscultation, Normal Air Movement Heart: Exam Unremarkable, Regular Rate/Rhythm, No Murmurs/Rubs/Gallops Meds/Labs/Diagnostics Admission Meds Current Medications Lactated Ringer's (Lr) 1,000 ml @ ud STK-MED ONCE IV Last administered on 09/22t 15:29; Start 09/22/16 at 15:29; Stop 09/22/16 at 15:30; Status DC Plan Impression Patient chart reviewed, patient interviewed and anesthestic plan with risks, benefits, and alternatives discussed, and informed consent obtained. NPO per Anesth. Guidelines: Yes ASA Physical Status: ASA2 Mod Systemic Disease Anesthetic Plan: GA Bene/Risks/Altern/Consents: Yes HP Complete Prior to Induction: Yes Baldev Rolle MD September 22, 2016 15:46
[2016-09-22] MEDS ORDERED: Bupivacaine Liposome 1.3% 20 mL Inj ONE (16:07)
[2016-09-22] MEDS ORDERED: Bupivacaine Liposome 1.3% 20 mL Inj INFILTRATE ONE (16:16)
[2016-09-22] MEDS ORDERED: Bupivacaine-MPF 0.25%/EPI 30 mL Inj INFILTRATE ONE (16:16)
[2016-09-22] MEDS ORDERED: oxyCODONE-Acetamin 5-325 mg Tablet PO PRN (16:50)
[2016-09-22] MEDS: fentaNYL-PF 50 mCg/mL 2 mL Inj IVPUSH PRN ×2 (17:00→17:08)
[2016-09-22] MEDS: HYDROmorphone 1 mg/mL Inj IVPUSH PRN ×2 (17:14→17:19)
[2016-09-22] MEDS ORDERED: METR500T19 PO (17:16)
[2016-09-22] MEDS ORDERED: LEVO750T39 PO (17:16)
--- NOTE | 2016-09-22 21:41 | OP ---
[address] [address] OPERATIVE REPORT PATIENT: ASHLEY FYA : 1975 MR#: [id number] ADMIT: 09/22/2016 JOB ID: [id number] DATE OF SURGERY: 09/22/2016 PREOPERATIVE DIAGNOSIS(ES): Perirectal abscess. POSTOPERATIVE DIAGNOSIS(ES): Perirectal abscess. PROCEDURE PERFORMED: 1. Incision and drainage of perirectal abscess. 2. Examination under anesthesia. 3. Non cutting seton placement. SURGEON: Jazmin Horne MD. CORRECTIVE THERAPIST: None. HISTORY OF PRESENT ILLNESS: This is a 41-year-old woman, who had a perirectal abscess drained several months ago. Initially it resolved; however, she began to have recurrent symptoms, and several days ago she felt a gush of purulent fluid from the perirectal region. She continued to have ongoing pain and, therefore, presented to the clinic by my partner, Dr. Charlton. He did not identify significant abnormalities on anoscopy and, therefore, recommended examination under anesthesia. FINDINGS: Previous abscess cavity of the left posterolateral position. A non cutting seton was placed. DESCRIPTION OF PROCEDURE: The patient was brought to the operating room and placed in the supine position. General anesthesia was induced. A warming blanket and SCDs were placed. She was repositioned into high lithotomy. The operative field was prepped and draped in a sterile fashion. A pause was performed to confirm the correct patient, procedure, and site. Examination under anesthesia was performed. There was no significant induration or fluctuance; however, there was a mucosal defect at the left posterolateral position, which was at 5 o'clock with the patient in high lithotomy. With further palpation, it appeared that deep to this was an abscess cavity. A needle was inserted and a small amount of hydrogen peroxide was injected into the abscess cavity, and the mucosal abnormality 1 cm proximal to the dentate line showed a small defect consistent with fistula. Therefore, a silk suture was brought out from the inner opening 1 cm proximal to the dentate line to an outer location on the perianal skin which was created with a small stab incision to connect the two. A small vascular loop was then brought through the same two holes, sutured to itself, and secured with a silk suture. Then, 20 mL of 0.25% Marcaine were injected for postoperative analgesia. This was followed by 20 mL of Exparel. A sterile dressing was placed. The patient tolerated the procedure well. ESTIMATED BLOOD LOSS: 5 mL. SPECIMENS: A small posterolateral hemorrhoidal skin tag located at the dentate line was removed and sent for final pathology. It was pedunculated. COMPLICATIONS: None.
--- NOTE | 2016-09-23 14:30 | PATH ---
SURGICAL PATHOLOGY Attending Physician:Jazmin Horne MD CASE STATUS: Signed Out PATIENT NAME: ASHLEY FAY PID: [id number] : 1975 DATE COLLECTED:09/22/2016 00:00 SPECIMEN: Hemorrhoids CLINICAL HISTORY: PERIRECTAL ABSCESS 1). POSTERIOR HEMORRHOIDAL SKIN TAG FINAL DIAGNOSIS: 1.POSTERIOR HEMORRHOIDAL SKIN TAG: A[place]ORDON WITH REACTIVE SQUAMOUS EPITHELIAL HYPERPLASIA, NEGATIVE FOR ATYPIA AND MALIGNANCY. ICD10 L91.8 GROSS DESCRIPTION: The specimen is received in one formalin filled container labeled with the patient's name, sublabeled "posterior hemorrhoidal skin tag" and consists of a 0.2 x 0.2 x 0.3 CM nguyen-graves pedunculated portion of tissue which is inked blue and entirely submitted in one cassette. 09/23/2016 DAC MICRO DESCRIPTION: See diagnosis. ICD-9 CODES: CPT CODES: 1: 26912 Electronically Signed Out Gokul Bonds MD [facility] [address], [place] [address] Technical component performed at [facility], [facility] [address], [place], [address]
== END 2016-09-22 23:59 | disposition home or self-care (01) ==
LOC: SAS 14:40
PROVIDERS: ATTEND Surgery
DX: K61.1 Rectal abscess (principal); K64.4 Residual hemorrhoidal skin tags; I10 Essential (primary) hypertension; J45.909 Unspecified asthma, uncomplicated; F32.9 Major depressive disorder, single episode, unspecified; R51 Headache; F17.210 Nicotine dependence, cigarettes, uncomplicated
CPT/HCPCS: 46020; 46045; 88304; J0330; J1100; J1170; J2250; J2270; J2405; J2765; J3010; J7120

== ENCOUNTER 2016-10-02 13:13 | Inpatient (IN) | payer OTHER ==
[~2016-10-02] VITALS: Ht 172.7 cm; Wt 88.2 kg
[2016-10-02] VITALS (13 sets, daily range): BP systolic 125–141; BP diastolic 68–86; PULSE 80–103; RESP 14–20; O2SAT 89–100
[~2016-10-02 13:13] MED LIST changes: +ALBU0.63 INHALATION; -ALPR1TAB7 PO; +Dexamethasone 4 mg/mL Inj ONE; +LEVO750T39 PO; +MetoCLOpramide 5 mg/mL 2 mL Inj ONE; +Ondansetron 2 mg/mL 2 mL Inj ONE; +Propofol 10,000 mCg/mL 20 mL Inj ONE; +fentaNYL-PF 50 mCg/mL 2 mL Inj ONE
--- NOTE | 2016-10-02 13:30 | ED.REPORT ---
HPI-Abd Pain F Under 40 Date of Service Oct 02, 2016 ED Provider: Vaibhav Braden MD Patient is a 41 y/o female presenting to the ED c/o rectal pain onset today, about 1.5 hours ago, and has progressively worsened. The patient had a tricia- rectal abscess I&D done [address] Jazmin Horne. Had been doing well, then suddenly this PM she developed sx described above. Associated symptoms include trouble walking secondary to pain, nausea, vomiting, urinary urgency, and urinary retention. The patient denies fever, abdominal pain, or any other symptoms. She reports to be experiencing a "burning" pain when sitting or standing up. She was able to urinate after vomiting during ED visit. Nursing Notes Stated Complaint: PERIANAL FISTULA Chief Complaint: General Complaint Nursing Notes Reviewed: Yes Allergies: Coded Allergies: erythromycin base (Verified Allergy, Severe, Anaphylaxis, 07/02/16) venom-honey bee (Verified Allergy, Severe, Anaphylaxis, 07/02/16) Penicillins (Verified Allergy, Intermediate, Anaphylaxis, 07/02/16) Sulfa (Sulfonamide Antibiotics) (Verified Allergy, Unknown, 07/02/16) rash, vomiting Uncoded Allergies: MISC (Allergy, Unknown, all penicillin derived abx, 06/29/16) Scheduled Albuterol Neb Soln (Albuterol Neb Soln) 0.63 Mg/3 Ml Vial.neb Unknown Dose INHALATION BID Aripiprazole (Aripiprazole) 5 Mg Tablet 5 MG PO DAILY Cholecalciferol (Vitamin D3) (Vitamin D3) 2,000 Unit Capsule 2,000 UNIT PO DAILY Citalopram (Citalopram) 40 Mg Tablet 40 MG PO DAILY Duloxetine (Cymbalta) 60 Mg Capsule.dr 60 MG PO BID Gabapentin (Gabapentin) 600 Mg Tablet 600 MG PO BID Ibuprofen (Ibuprofen) 600 Mg Tablet 600 MG PO DAILYWL Lamotrigine (Lamotrigine) 150 Mg Tablet 150 MG PO DAILY Levofloxacin (Levofloxacin) 750 Mg Tablet 750 MG PO DAILY Lovastatin (Lovastatin) 20 Mg Tablet 20 MG PO HS Metronidazole (Metronidazole) 500 Mg Tablet 500 MG PO TID Pantoprazole DR (Pantoprazole DR) 40 Mg Tablet.dr 40 MG PO BID Pramipexole Dihydrochloride (Mirapex) 0.5 Mg Tablet 0.5 MG PO HS Prazosin (Prazosin) 2 Mg Capsule 2 MG PO HS Topiramate (Topiramate) 25 Mg Tablet 25 MG PO DAILY Scheduled PRN Albuterol HFA (Proair HFA) 8.5 Gm Hfa.aer.ad 2 PUFFS INHALATION Q4H PRN PRN For Shortness of Breath Hydrocodone-Acetaminophen 5-325 mg (Hydrocodone-Acetaminophen 5-325 mg) 1 Each Tablet 1 TABLET PO QID PRN PRN For Pain Sumatriptan (Imitrex) 25 Mg Tablet 25-50 MG PO DAILY PRN PRN Headache General Time Seen by MD: 13:29 Chief Complaint Other (Rectal pain) Hx Obtained From: Patient Arrived By: Walk-in Onset Occurred: 1 - 4 hours ago Symptom Duration: Since onset Recent Healthcare: Recent doctor visit, Previous surgery Similar Sx Previous: Yes Past Medical History Past Medical History PTSD Bipolar OCD Sleep apnea Anxiety Reports: GERD, Hyperlipidemia, Hypertension, Mental illness Reports: Depression Past Surgical History Facial bone repair Left shoulder surgery Perianal abscess drain placement and subsequent removal - Dr. Charlton Cholecystectomy - Dr. Horne Tricia-anal fistula repair Reports: Hysterectomy, Tonsillectomy Reports: Tubal ligation Smoking History Current Every Day Smoker Social History Other Social History: Good social support Ambulatory Status Independent Review of Systems +urinary retention Constitutional: Denies: Fever GI: Reports: Nausea, Rectal pain, Vomiting, Denies: Abdominal pain Female: Reports: Urinary urgency Complete sys rev & neg: except as marked. Neurologic: Reports: Problem walking (secondary to pain) Physical Exam Initial Vital Signs Vital Signs (First) Date Time Temp Pulse Resp B/P Pulse Ox O2 Delivery O2 Flow Rate FiO2 10/02/16 13:18 36.1 94 20 129/86 100 Room Air Initial VS: Reviewed, Vital signs normal Head / Eyes: Atraumatic, Normocephalic Neck: Full range of motion Skin: Warm, Dry Neurologic: Alert, Oriented, Nonfocal General/Constitutional: Awake, Alert, No acute distress, Well appearing Respiratory / Chest: Atraumatic, Breath sounds NL, Breath sounds = bilat, No respiratory distress Cardiovascular: Heart rate NL, Regular rhythm, Heart sounds NL Abdomen: Soft, Non-tender Back: Atraumatic Rectum / Perineum: No gross blood Drain is no longer present. Normal and healthy tissue. Interpretation & Diagnostics Lab Results Interpretation Result Diagram: 10/02/16 1352 10/02/16 1352 Test 10/02/16 13:48 10/02/16 13:52 Urine Color Yellow (YELLOW) Urine Appearance Clear (CLEAR,HAZY) Urine pH 7.0 (5.0-8.0) Urine Specific [place] 1.015 (1.003-1.035) Urine Protein Negativemg/dL (NEG,TRACE) Urine Glucose (UA) Negativemg/dL (NEGATIVE) Urine Ketones Negativemg/dL (NEGATIVE) Urine Occult Blood Negative (NEGATIVE) Urine Nitrite Negative (NEGATIVE) Urine Bilirubin Negative (NEGATIVE) Urine Urobilinogen Normalmg/dL (NORMAL) Urine Leukocyte Esterase Negative (NEGATIVE) Urine RBC 0-2/hpf (0-2) Urine WBC 0-5/hpf (0-5) Urine Epithelial Cells Moderate/hpf (NONE-MOD) Urine Crystals None seen (NONE SEEN) Urine Bacteria Moderate/hpf (NONE-FEW) Urine Hyaline Casts None/lpf (NONE) Urine Granular Casts None seen (NONE SEEN) Urine Waxy Casts None seen (NONE SEEN) Urine Red Blood Cell Casts None seen (NONE SEEN) Urine White Blood Cell Casts None seen (NONE SEEN) Urine Mucus None seen (None Seen) Urine Trichomonas None seen (NONE SEEN) Urine Yeast None (NONE SEEN) Urinalysis Comment None Urine Culture Reflexed Indicated White Blood Count 12.5th/mm3 (3.8-10.1) Red Blood Count 4.58mil/mm3 (3.90-5.20) Hemoglobin 13.9g/dL (12.0-15.6) Hematocrit 42.0% (35.0-46.0) Mean Corpuscular Volume 91.7fL (81-100) Mean Corpuscular Hemoglobin 30.3pg (27.0-35.0) Mean Corpuscular Hemoglobin Concent 33.1% (32.0-37.0) Red Cell Distribution Width 14.3% (12.3-15.4) Platelet Count 279bil/L (150-400) Neutrophils (%) (Auto) 70.2% (40-74) Lymphocytes (%) (Auto) 18.9% (14-46) Monocytes (%) (Auto) 8.5% (4-12) Eosinophils (%) (Auto) 0.8% (0-5) Basophils (%) (Auto) 0.6% (0-3) Sodium Level 140mEq/L (134-144) Potassium Level 4.2mEq/L (3.5-5.2) Chloride Level 105mEq/L (97-108) Carbon Dioxide Level 22mmol/L (18-29) Blood Urea Nitrogen 15mg/dL (6-20) Creatinine 0.72mg/dL (0.57-1.00) Estimat Glomerular Filtration Rate 129mL/min (>59) Glucose Level 103mg/dL (60-99) Calcium Level 9.0mg/dL (8.5-10.1) Magnesium Level 2.1mg/dL (1.6-2.6) Total Bilirubin 0.2mg/dL (0.0-1.2) Aspartate Amino Transf (AST/SGOT) 15U/L (0-50) Alanine Aminotransferase (ALT/SGPT) 16U/L (0-32) Alkaline Phosphatase 70U/L (25-150) Total Protein 6.8g/dL (6.4-8.4) Albumin 4.0g/dL (3.4-5.0) Lipase 39U/L (13-60) Hold Alvarado Top Tube Received (Received) Re-Eval/Medical Decision Re-Evaluation/Progress : Time of Eval: 14:48 Re-Evaluation/Progress Note: Rechecked patient after pain has been managed. She is feeling much better. Consultation : Referral / Consult Name: Jones Bragg MD Consulted With: Surgeon Call Returned at: 14:57 Note: Discussed patient's case. Requesting non-contrast pelvis CT. Avaible for call if needed. Discharge & Departure Shift Change Sign-Out Patient Care Transferred: Yes Discussed Complaint(s): Yes Laboratory Evaluation: Lab evaluation discussed Imaging Studies: Ordered, not yet done Transfer of care to Dr. Infante at 1500 Primary Impression: Rectal pain Referrals: Raz Thibodeaux DO (PCP) Care Transferred to: Transfer of care to Dr. Infante Care Transferred at: 15:00 Scribe Attestation Portions of this note were transcribed by Alina Moralez & Bhumika Swanson. I, Dr. Hoff personally performed the history, physical exam and medical decision-making; I reviewed and confirmed the accuracy of the information in the transcribed note. Signed by: Alina Moralez & Bhumika Swanson., [place], 10/02/2016 and 15:00. copies to: Raz Thibodeaux Kirk H MD Oct 02, 2016 13:30 Alina Moralez Oct 02, 2016 13:39 Alina Moralez Oct 02, 2016 13:39
[2016-10-02] MEDS ORDERED: 0.9% Sodium Chloride 1,000 ML IV ONE (13:33)
[2016-10-02] MEDS: Ondansetron 2 mg/mL 2 mL Inj IVPUSH PRN ×3 (13:54→16:01)
[2016-10-02] MEDS: HYDROmorphone 1 mg/mL Inj IVPUSH PRN ×4 (13:55→20:05)
[2016-10-02 14:12] LABS: APPEARANCE,URINE CLEAR (CLEAR,HAZY); COLOR,URINE YELLOW (YELLOW); OCCULT BLOOD,URINE NEGATIVE (NEGATIVE); UROBILINOGEN,URINE NORMAL (NORMAL)
[2016-10-02 14:16] LABS: BASOPHILS % (AUTO) 0.6 % (0-3); EOSINOPHILS % (AUTO) 0.8 % (0-5); MONOCYTES % (AUTO) 8.5 % (4-12); Mean Corpuscular Hemoglobin 30.3 pg (27.0-35.0); Mean Corpuscular Volume 91.7 fL (81-100); NEUTROPHILS % (AUTO) 70.2 % (40-74); Platelet Count 279 bil/L (150-400)
[2016-10-02 14:45] LABS: Magnesium 2.1 mg/dL (1.6-2.6)
--- NOTE | 2016-10-02 15:37 | DRSVH ---
PROCEDURE: CT PELVIS WITHOUT CONTRAST ([id number]) INDICATIONS: perirectal abscess TECHNIQUE: After the administration of oral contrast, 5 mm thick sections acquired from the iliac crests to the symphysis. 5 mm coronal and sagittal reformats were then performed. For radiation dose reduction, t he following was used: automated exposure control, adjustment of mA and/or kV according to patient s ize. COMPARISON: [facility], CT, CT ABD PELVIS W CON, 07/02/2016, 13:16. FINDINGS: Image quality: Excellent. Peritoneum and bowel: Bowel loops demonstrate normal wall thickness and caliber. Scattered diverticu li noted in the colon without evidence of diverticulitis. No free air. Trace free fluid noted adjace nt to the right lateral margin of the rectal vault Appendix is normal. Genitourinary: Bladder wall thickness is normal. Nodes and vessels: No iliac, pelvic, or inguinal adenopathy by size criteria. Iliac vessels demonst rate normal size. Bones: No suspicious bony lesions. Pelvic ring and hip joints appear intact. Miscellaneous: No inguinal hernias. Small, approximately 2.6 x 1.6 cm low-density lesion noted poste rior and left to the anus which may represent reported perirectal abscess. Lesion cannot be definiti vely characterize without the benefit of intravenous contrast. IMPRESSION: Small low-density lesion adjacent to the posterior- left margin of the rectum which may represent perianal abscess, however finding is nonspecific and other etiologies cannot be excluded wi thout benefit of intravenous contrast.. Dictated by: Merissa Ellis MD, PhD on 10/02/2016 at 15:30 Approved by: Merissa Ellis MD, PhD on 10/02/2016 at 15:35
[2016-10-02] MEDS ORDERED: metroNIDAZOLE Inj 1,000 MG in IV Premix 1 EACH IV ONE (17:25)
[2016-10-02] MEDS ORDERED: levoFLOXacin Inj 500 MG in IV Premix 1 EACH IV ONE (17:25)
[2016-10-02] MEDS: HYDROmorphone 0.5 mg/0.5 mL iSecure Syringe IVPUSH PRN ×2 (17:42→18:07)
[2016-10-02] MEDS ORDERED: ACET-2605 PO (17:44)
[2016-10-02] MEDS ORDERED: Lactated Ringer's 500 ML IV PRN (18:18)
[2016-10-02] MEDS ORDERED: Lactated Ringer's 1,000 ML IV SCH (18:18)
--- NOTE | 2016-10-02 18:18 | PCM.HPANE ---
Patient Data Surgeon Admitting Provider:Jones Bragg MD Attending Provider:Jones Bragg MD Primary Care Physician:Raz Thibodeaux DO Other Provider: Reason for Visit Perirectal Abscess Ht/WT & BMI Height (Feet): 5 Height (Inches): 8.00 Weight (Kilograms): 88.18 Body Mass Index 0.00 Allergies Coded Allergies: erythromycin base (Verified Allergy, Severe, Anaphylaxis, 07/02/16) venom-honey bee (Verified Allergy, Severe, Anaphylaxis, 07/02/16) Penicillins (Verified Allergy, Intermediate, Anaphylaxis, 07/02/16) Sulfa (Sulfonamide Antibiotics) (Verified Allergy, Unknown, 07/02/16) rash, vomiting Uncoded Allergies: MISC (Allergy, Unknown, all penicillin derived abx, 06/29/16) Past Anesthesia History Anesthesia History: Denies:: Abnormal Airway, Anesthesia Reactions, Difficult Intubation, Fam Anesthesia Reaction, Fam Malignant Hypertherm, Malignant Hyperthermia Diabetes History Hx Diabetes?: No MRSA MRSA: No Medications Blood Thinner: Aspirin Hypertension Medication: No Home Meds Incl Beta Getachew: No Active Scripts Metronidazole 500 Mg Olmjyd135 Mg PO TID #21 TABLET Ref 0 Prov:Jazmin Horne MD 09/22/16 Levofloxacin 750 Mg Ehbeft824 Mg PO DAILY #7 TABLET Prov:Jazmin Horne MD 09/22/[address] 40 Mg Tablet.dr40 Mg PO BID #60 CAPSULE Ref 2 Prov:Jazmin Horne MD 07/06/16 Hydrocodone-Acetaminophen 5-325 mg 1 Each Tablet1 Tablet PO QID PRN For Pain # 25 TABLET Ref 0 Prov:Jazmin Horne MD 07/06/16 Reported Medications Acetaminophen/Diphenhydramine (Tylenol Pm Ex-Strength Caplet)500 Mg-25 Mg Tablet1-2 Tab PO PRN For Pain 10/02/16 Albuterol Neb Soln 0.63 Mg/3 Ml Vial.nebUnknown Dose INHALATION BID Ref 0 09/22/16 Cholecalciferol (Vitamin D3) (Vitamin D3)2,000 Unit Capsule2,000 Unit PO DAILY 07/28/16 Albuterol HFA (Proair HFA)8.5 Gm Hfa.aer.ad2 Puffs INHALATION Q4H PRN For Shortness of Breath #1 INHALER 06/29/16 Sumatriptan (Imitrex)25 Mg Iqfxxk50-08 Mg PO DAILY PRN Headache 06/29/16 Prazosin 2 Mg Capsule2 Mg PO HS 06/29/16 Aripiprazole 5 Mg Tablet5 Mg PO DAILY 06/29/16 Lamotrigine 150 Mg Fbtmkt510 Mg PO DAILY Ref 0 06/29/16 Topiramate 25 Mg Ooisph76 Mg PO DAILY Ref 0 06/29/16 Gabapentin 600 Mg Fsclte570 Mg PO BID Ref 0 05/20/16 Pramipexole Dihydrochloride (Mirapex)0.5 Mg Tablet0.5 Mg PO HS 05/19/16 Lovastatin 20 Mg Ipreby72 Mg PO HS #30 TABLET Ref 0 05/19/16 Ibuprofen 600 Mg Dghwei840 Mg PO DAILYWL Ref 0 05/19/16 Duloxetine (Cymbalta)60 Mg Capsule.dr60 Mg PO BID Ref 0 05/19/16 Citalopram 40 Mg Owhhpy30 Mg PO DAILY 30 Days Ref 0 05/19/16 History History of ENT Problems?: No HEENT History: Denies:: Abnormal Airway Difficult Intubation Dysphagia Hearing Problem Denture Type: None Teeth Condition: Within Normal Limits Hx of Heart Problems?: Yes Cardiovascular History: Positive for:: Hypertension Denies:: AICD Atrial Fibrillation Chest Pain Congestive Heart Failure Pacemaker Valvular Heart Disease Hx of Respiratory Problem?: Yes Respiratory History: Positive for:: Asthma Cough (FLUID IN LEFT LUNG) Denies:: COPD Hemoptysis Pneumonia Tuberculosis Other Resp Pertinent History: On home inhalers/nebulizers Hx Neurologic Problems?: Yes Neurological History: Positive for:: Headaches Denies:: CVA Dementia Seizures Hx of GI Problems?: Yes Hx of Problems?: No Genitourinary History: Denies:: Kidney Stones Urinary Tract Infection Female Hx: Positive for:: Currently (tubal ligation) Denies:: Endometriosis Pelvic Inflammatory Problems with Breasts? Hx Musculoskeletal Problems?: No Musculoskeletal History: Denies:: Back Injury Joint Replacement Musculoskeletal Trauma Hx of Psycho/Social Problems?: Yes Psycho Social History: Positive for:: Anxiety Bipolar Disorder Hx Depression Denies:: Suicide Attempt Hx Surgeries?: Yes (DEBORAH, CERVICAL ABLATIONS, DRAIN FOR BUTTOCK, SHOULDER, FACIAL, TONSILS) Hx Any Other Health Problems?: Yes Other History: Positive for:: Hospitalization Denies:: Cancer Thyroid Disease History Blood Transfusions: Denies:: Blood Transfuse Reaction Blood Transfusions Hx Diabetes: No Hx Alcohol Use: NoHx Substance Use: No Smoking Status: Light Tobacco Smoker Have You Smoked inLast 12 mo: Yes Stop/Bang Treated for Sleep Apnea?: Yes Do You Have a CPAP Machine?: Yes (did not bring, "will be ok without one") SHELIA Risk Assessment: High Risk, =/>3 Yes Risk Assessment Category Category 1A: Patient has history of documented sleep apnea, and HAS NOT received any narcotic, sedative or anesthesia administration during this stay. Category 1B: Patient has history of documented sleep apnea, and HAS received any narcotic , sedative or anesthesia administration during this stay Category 2: Patient has SUSPECTED Obstructive Sleep Apnea, and HAS received any narcotic , sedative or anesthesia administration during this stay. Category 3: Patient has SUSPECTED Obstructive Sleep Apnea and HAS NOT received narcotic, sedative or anesthesia administration during this stay. Category 4: Outpatient in Procedural Areas with known sleep apnea or who screen positive for High Risk via the STOP/BANG questionnaire. Exam Exam Vital Signs Vital Signs Date Time Temp Pulse Resp B/P Pulse Ox O2 Delivery O2 Flow Rate FiO2 10/02/16 13:18 36.1 94 20 129/86 100 Room Air General Appearance: Oriented X3 HEENT/AIRWAY: MP 2 Lungs: Coarse Heart: Regular Rate/Rhythm Meds/Labs/Diagnostics Admission Meds Current Medications Sodium Chloride (Normal Saline) 1,000 ml @ 0 mls/hr Q0M ONCE IV Last administered on 10/02/16 13:54; Start 10/02/16 at 13:33; Stop 10/02/16 at 13:35; Status DC Ketorolac Tromethamine 30 mg 30 mg ONCE ONCE IVPUSH Last administered on 13:54; Start 10/02/16 at 13:35; Stop 10/02/16 at 13:36; Status DC Levofloxacin/ Dextrose 500 mg/ Premix 100 ml @ 100 mls/hr ONCE ONCE IV Last administered on 10/02/16 17:42; Start 10/02/16 at 17:25; Stop 10/02/16 at 18:24 Metronidazole/ Sodium Chloride/ Premix (Flagyl Inj/IV Premix) 200 ml @ 200 mls/ hr ONCE ONCE IV Last administered on 10/02/16 18:10; Start 6/3/17 at 17:25; Stop 10/02/16 at 18:24 Labs Test 10/02/16 13:48 10/02/16 13:52 Urine Color Yellow (YELLOW) Urine Appearance Clear (CLEAR,HAZY) Urine pH 7.0 (5.0-8.0) Urine Specific [place] 1.015 (1.003-1.035) Urine Protein Negativemg/dL (NEG,TRACE) Urine Glucose (UA) Negativemg/dL (NEGATIVE) Urine Ketones Negativemg/dL (NEGATIVE) Urine Occult Blood Negative (NEGATIVE) Urine Nitrite Negative (NEGATIVE) Urine Bilirubin Negative (NEGATIVE) Urine Urobilinogen Normalmg/dL (NORMAL) Urine Leukocyte Esterase Negative (NEGATIVE) Urine RBC 0-2/hpf (0-2) Urine WBC 0-5/hpf (0-5) Urine Epithelial Cells Moderate/hpf (NONE-MOD) Urine Crystals None seen (NONE SEEN) Urine Bacteria Moderate/hpf (NONE-FEW) Urine Hyaline Casts None/lpf (NONE) Urine Granular Casts None seen (NONE SEEN) Urine Waxy Casts None seen (NONE SEEN) Urine Red Blood Cell Casts None seen (NONE SEEN) Urine White Blood Cell Casts None seen (NONE SEEN) Urine Mucus None seen (None Seen) Urine Trichomonas None seen (NONE SEEN) Urine Yeast None (NONE SEEN) Urinalysis Comment None Urine Culture Reflexed Indicated White Blood Count 12.5th/mm3 (3.8-10.1) Red Blood Count 4.58mil/mm3 (3.90-5.20) Hemoglobin 13.9g/dL (12.0-15.6) Hematocrit 42.0% (35.0-46.0) Mean Corpuscular Volume 91.7fL (81-100) Mean Corpuscular Hemoglobin 30.3pg (27.0-35.0) Mean Corpuscular Hemoglobin Concent 33.1% (32.0-37.0) Red Cell Distribution Width 14.3% (12.3-15.4) Platelet Count 279bil/L (150-400) Neutrophils (%) (Auto) 70.2% (40-74) Lymphocytes (%) (Auto) 18.9% (14-46) Monocytes (%) (Auto) 8.5% (4-12) Eosinophils (%) (Auto) 0.8% (0-5) Basophils (%) (Auto) 0.6% (0-3) Sodium Level 140mEq/L (134-144) Potassium Level 4.2mEq/L (3.5-5.2) Chloride Level 105mEq/L (97-108) Carbon Dioxide Level 22mmol/L (18-29) Blood Urea Nitrogen 15mg/dL (6-20) Creatinine 0.72mg/dL (0.57-1.00) Estimat Glomerular Filtration Rate 129mL/min (>59) Glucose Level 103mg/dL (60-99) Calcium Level 9.0mg/dL (8.5-10.1) Magnesium Level 2.1mg/dL (1.6-2.6) Total Bilirubin 0.2mg/dL (0.0-1.2) Aspartate Amino Transf (AST/SGOT) 15U/L (0-50) Alanine Aminotransferase (ALT/SGPT) 16U/L (0-32) Alkaline Phosphatase 70U/L (25-150) Total Protein 6.8g/dL (6.4-8.4) Albumin 4.0g/dL (3.4-5.0) Lipase 39U/L (13-60) Hold Alvarado Top Tube Received (Received) Plan Impression Patient chart reviewed, patient interviewed and anesthestic plan with risks, benefits, and alternatives discussed, and informed consent obtained. NPO per Anesth. Guidelines: Yes ASA Physical Status: ASA3 Plus Emergency Anesthetic Plan: GA Bene/Risks/Altern/Consents: Yes HP Complete Prior to Induction: Yes Nicolás Alexander MD Oct 02, 2016 18:18
[2016-10-02] MEDS ORDERED: Phenylephrine 10,000 mCg/mL Inj IVPUSH PRN (18:20)
[2016-10-02] MEDS ORDERED: Dexamethasone 4 mg/mL Inj IVPUSH PRN (18:20)
[2016-10-02] MEDS ORDERED: MetoCLOpramide 5 mg/mL 2 mL Inj IVPUSH PRN (18:20)
[2016-10-02] MEDS ORDERED: Ondansetron 2 mg/mL 2 mL Inj IVPUSH PRN ×2 (18:20→19:30)
[2016-10-02] MEDS ORDERED: EPHEDrine Sulfate 50 mg/mL Inj IVPUSH PRN (18:20)
[2016-10-02] MEDS ORDERED: fentaNYL-PF 50 mCg/mL 2 mL Inj IVPUSH PRN (18:20)
[2016-10-02] MEDS ORDERED: Bupivacaine-MPF 0.5% 30 mL Inj INFILTRATE ONE (19:19)
[2016-10-02] MEDS ORDERED: HYDROmorphone 1 mg/mL Inj IVPUSH PRN (19:30)
[2016-10-02] MEDS: HYDROcodone-APAP 5-325 mg Tablet PO PRN (19:59)
--- NOTE | 2016-10-02 20:49 | HP ---
[address] [address] HISTORY AND PHYSICAL PATIENT: ASHLEY FAY : 1975 MR#: [id number] ADMIT: 10/02/2016 JOB ID: [id number] CHIEF COMPLAINT: Recurrent perirectal abscess. HISTORY OF PRESENT ILLNESS: The patient is a 41-year-old female, well known to the surgical service. The patient initially underwent a left-sided perirectal abscess by Dr. Zoltan house in June and two days later she underwent a laparoscopic cholecystectomy by Dr. Horne. The patient has been having recurrent problems with her perirectal abscess and most recently, on September 22, underwent another I and D and placement of a seton by Dr. Horne. The patient was on p.o. antibiotics and was doing well up until today. This morning, she had a bowel movement and felt that her seton was still in place. The patient subsequently went to [employer] and while at [employer] developed recurrent pain on the left side, described to be sharp, and it was going anteriorly toward her vagina. The pain was so severe that it was associated with nausea and vomiting. Patient subsequently presented to the emergency department to seek care. She reports that she has just finished taking her p.o. antibiotics and that her pain medicine is not holding this pain. Workup in the emergency department today included a pelvic CT that suggests perhaps there is a small, 2.6 x 1.6 cm, low-density lesion in the posterior and left of the anus. Her white blood count today is 12.5. PAST MEDICAL HISTORY: Includes PTSD, bipolar disease, OCD, sleep apnea. Restless legs syndrome. GERD, hyperlipidemia, hypertension, facial bone repair, left shoulder surgery. Hysterectomy, tonsillectomy, tubal ligation, lap choly and left-sided perirectal abscess I and D x2. CURRENT MEDICATIONS: Include hydrocodone, albuterol inhaler, citalopram, Cymbalta, gabapentin, ibuprofen, lamotrigine, levofloxacin, Flagyl, lovastatin, pantoprazole, Mirapex, prazosin, Imitrex, and topiramate. ALLERGIES: 1. PENICILLIN. 2. SULFA. 3. ERYTHROMYCIN BASE. SOCIAL HISTORY: She is not . She has a boyfriend. She will be moving to a new house in [place]. She does smoke. FAMILY HISTORY: Positive for colon cancer in her father and also heart disease. REVIEW OF SYSTEMS: Recurrence of the perianal pain and nausea. All other systems reviewed were negative. PHYSICAL EXAMINATION: The patient is currently in the emergency department [facility] in no acute distress. Her temperature is 36.1, blood pressure 129/86, pulse is 94, respirations 20. Head is normocephalic, atraumatic. There is no scleral icterus. Neck is supple. Heart is in regular rate. Lungs are clear. Abdomen is obese, but soft and nontender. Extremities show no clubbing and no cyanosis. Neurologically, patient is awake and alert and conversant and follows commands. Examination of the perianal region shows a left posterior incision without any erythema. There is no obvious purulent drainage. The incision is approximately 1 inch in length. Probing with a Q-tip did not show any obvious purulent drainage. However, on palpation, she is a little tender along the left side of her anus and going anteriorly towards the vagina. There is no obvious cellulitis. LABORATORY EXAMINATION: This afternoon shows a white blood count of 12.5, hematocrit 42 and platelet count is 279. Sodium is 140, potassium 4.2. Total bilirubin 0.2. Lipase of 39. The pelvic CT from this afternoon shows a small, low-density lesion adjacent to the posterior left margin of the rectum which may represent perianal abscess. ASSESSMENT: This is a 41-year-old female with possible recurrent perianal or perirectal abscess. Options were discussed with the patient. We will take the patient to the operating room for examination under anesthesia, anoscopy, possible additional I and D, possible seton placement, possible fistulotomy. The procedure and the associated operative risks were discussed with the patient and patient understands and wishes to proceed. Patient will be given IV antibiotics. The patient will likely stay in-house after the procedure. GEETA
[2016-10-03] VITALS: BP 104/65; PULSE 73; RESP 16; O2SAT 97
[2016-10-03] MEDS: HYDROcodone-APAP 5-325 mg Tablet PO PRN ×3 (00:05→09:43)
[2016-10-03] MEDS ORDERED: 0.9% Sodium Chloride 250 ML ONE (00:13)
[2016-10-03] MEDS: metroNIDAZOLE Inj 500 MG in IV Premix 1 EACH IV SCH ×2 (00:24→07:40)
--- NOTE | 2016-10-03 00:58 | OP ---
[address] [address] OPERATIVE REPORT PATIENT: ASHLEY FAY : 1975 MR#: [id number] ADMIT: 10/02/2016 JOB ID: [id number] DATE OF SURGERY: 10/02/2016 SURGEON: Jones Bragg MD PRESIDENT + PUBLISHER: None. ANESTHESIA: General. PREOPERATIVE DIAGNOSIS(ES): Recurrent left perirectal abscess. POSTOPERATIVE DIAGNOSIS(ES): Recurrent left perirectal abscess. PRINCIPAL PROCEDURE: Incision and drainage of left recurrent perirectal abscess. INDICATION FOR PROCEDURE: The patient is a 41-year-old female, who underwent an initial I and D of a left perirectal abscess in June by Dr. Charlton, who has continuing problems and most recently underwent a second I and D by Dr. Horne approximately eight days ago. The patient re-presents to the emergency department today due to sudden onset of left-sided perirectal pain. PRINCIPAL FINDING: A left lateral perirectal abscess was drained today via a separate incision. PROCEDURE COURSE: The patient was brought to the operating table and was provided with general anesthesia. The patient was given preoperative IV antibiotics and SCDs. The patient's legs were placed in high lithotomy position. A time-out was performed. The patient's perianal region was then prepped and draped in the usual sterile fashion. First, a digital rectal examination did not show any obvious palpable pathology. The patient has a pre-existing left posterior mucosal wound that shows signs of healing without any obvious pus drainage. Gentle exploration with a Cindy clamp underneath this incision did not show any obvious pus. However, palpation along the left lateral perianal region does show some induration and there was a previous I and D scar at the left lateral position. Local anesthetic was injected and a small stab incision was made at this previous I and D left lateral site. Using a Cindy clamp, I explored the subcu underneath and we encountered a large amount of pus which drained. The pus was collected and sent for cultures. I was able to enlarge the left lateral incision to accommodate my finger so I could explore the abscess cavity. The abscess cavity did not communicate with the anal canal. The abscess cavity was irrigated with saline. Next, the abscess cavity on the left lateral perianal region was then packed with 1/2-inch Vag Trell soaked in saline. By the end of the procedure, needle counts and sponge counts were correct. A dressing was then placed over the wound and taped in place. The patient was then extubated and taken to the recovery room in stable satisfactory condition. At the end of the procedure, the patient has a left posterior incision from prior I and D, and a left lateral incision that was created by me today.
--- NOTE | 2016-10-03 05:02 | NUR ---
post-op 2049 Alert, tolerating clear liq's well, diet advanced. Up independently, voiding without difficulty. Pain rated 7 and reduced to 3 with Vicodin overnight. moderate sero/sang drainage, ABD dressing not saturated. stable, care ongoing.
[2016-10-03 05:40] VITALS: BP 105/68; PULSE 66; RESP 16; O2SAT 96
[2016-10-03 05:40] LABS: BASOPHILS % (AUTO) 0.2 % (0-3); EOSINOPHILS % (AUTO) 0 % (0-5); MONOCYTES % (AUTO) 3.7 % (4-12); Mean Corpuscular Hemoglobin 30.2 pg (27.0-35.0); NEUTROPHILS % (AUTO) 88.9 % (40-74); Platelet Count 250 bil/L (150-400)
[2016-10-03] MEDS ORDERED: levoFLOXacin 500 mg Tablet PO SCH (07:30)
--- NOTE | 2016-10-03 08:06 | PCM.PNSURG ---
Subjective Visit Information: Reason for Visit Perirectal Abscess Surgery/Surgery Date Post-Op Day # Date of Admission: Oct 02, 2016 at 17:21 Hospital Day # Subjective: feeling a lot better today than yesterday, no BM yet, operative findings discussed with pt Objective Objective Awake in bed Abd: soft L lateral perianal wound -- packing removed and re-packed Vital Sign- Last 8 Hours Date Time Temp Pulse Resp B/P Pulse Ox O2 Delivery O2 Flow Rate FiO2 10/03/16 07:55 Supplement Oxygen 10/03/16 05:40 36.8 66 16 105/68 96 Room Air 10/03/16 00:46 Supplement Oxygen Intake and Output- Last 8 Hour 10/03/16 Cumulative From/Thru 07:00 10/02/16 13:18 - 10/03/16 06:15 Intake Total 500 ml 1100 ml Output Total 1300 ml 1300 ml Balance -800 ml -200 ml Intake Oral 500 ml 500 ml IV Total 600 ml Output Urine Total 1300 ml 1300 ml # Bowel Movements 0 0 Result Diagram: 10/03/16 0500 10/02/16 1352 Assessment & Plan Impression POD #1 s/p I & D of recurrent L jesus-rectal abscess Problems: Plan Daily packing change Rx for po abx Discharge home F/U in Surgery Clinic in 1-2 weeks (Dr. Horne or Dr. Charlton) Jones Bragg MD Oct 03, 2016 08:06
--- NOTE | 2016-10-03 08:16 | PCM.DISURG ---
Surgical Discharge Instruction Date of Service Oct 03, 2016 Dates of Hospitalization Date of Hospital Admission Oct 02, 2016 at 17:21 Providers Admitting Physician: Jones Bragg MD Primary Care Physician: Raz Thibodeaux DO Attending Physician: Jones Bragg MD Discharge Diagnosis Discharge Diagnosis Recurrent L perirectal abscess Diet Discharge Diet: No restrictions Activity Discharge Activity-General: Activity as pain allows, No driving while taking narcotic Dressing and Incisional Care Dressing Care: Change soiled dressing, Other (Daily packing change to L perianal wound ) Hygiene: May shower, Other (Sitz baths daily) Additional Instructions Discharge Instructions Rx: percocet #12, Levaquin x7 d, flagyl x 7 d F/U with Dr. Horne or Dr. Charlton in 1-2 weeks Sitz baths Daily packing change Follow Up Plan Follow-up Provider (F9): Jazmin Horne MD Follow-up appointment: Weeks (1-2) Jones Bragg MD Oct 03, 2016 08:16
--- NOTE | 2016-10-03 09:56 | NUR ---
Discharge Dr. Bragg performed dressing change and replaced packing with pt this morning and given discharge orders. Dressing change performed again with boyfriend at bedside to give return demonstration on proper packing and wound care for daily dressing changes. Pt very comfortable with sitz baths, antibiotics and pain management and understands that the wound needs to heal from the inside. She will follow up with Dr. Horne in a week and was given sufficient supplies for packing/dressing changes.
--- NOTE | 2016-10-04 11:20 | PCM.DC.SUR ---
Discharge Summary Date of Service: Date of Hospital Admission: Oct 02, 2016 at 17:21 Date of Operation(s): 10/02/2016 Date of Discharge: 10/03/2016 Diagnosis at Time of Discharge Primary diagnosis: Recurrent left perirectal abscess Other chronic conditions: 1. PTSD 2. Bipolar disease 3. OCD 4. Sleep apnea 5. Restless leg syndrome 6. GERD 7. Hyperlipidemia 8. Hypertension 9. Daily cigarette smoker Problems: Operation I&D of recurrent left perirectal abscess Brief History and Physical: The patient is a 41-year-old female, who underwent an initial I and D of a left perirectal abscess in June by Dr. Charlton, who has continuing problems and most recently underwent a second I and D by Dr. Horne approximately eight days prior to admission. The patient re-presented to the emergency department due to sudden onset of left-sided perirectal pain Consultants: None Hospital Course: The patient was admitted and underwent the above-mentioned operation without complication. She was stable for discharge the following morning. Pathology: None Disposition: The patient was discharged to home on her first postsurgical day. Follow-up Plan: She will follow-up in the office with Dr. Horne in 1-2 weeks. Acetaminophen/Diphenhydramine (Tylenol Pm Ex-Strength Caplet) 500 Mg-25 Mg Tablet 1-2 TAB PO PRN For Pain (Reported) Albuterol HFA (Proair HFA) 8.5 Gm Hfa.aer.ad 2 PUFFS INHALATION Q4H PRN PRN For Shortness of Breath (Reported) Albuterol Neb Soln (Albuterol Neb Soln) 0.63 Mg/3 Ml Vial.neb Unknown Dose INHALATION BID (Reported) Aripiprazole (Aripiprazole) 5 Mg Tablet 5 MG PO DAILY (Reported) Cholecalciferol (Vitamin D3) (Vitamin D3) 2,000 Unit Capsule 2,000 UNIT PO DAILY (Reported) Citalopram (Citalopram) 40 Mg Tablet 40 MG PO DAILY (Reported) Duloxetine (Cymbalta) 60 Mg Capsule.dr 60 MG PO BID (Reported) Gabapentin (Gabapentin) 600 Mg Tablet 600 MG PO BID (Reported) Hydrocodone-Acetaminophen 5-325 mg (Hydrocodone-Acetaminophen 5-325 mg) 1 Each Tablet 1 TABLET PO QID PRN PRN For Pain Ibuprofen (Ibuprofen) 600 Mg Tablet 600 MG PO DAILYWL (Reported) Lamotrigine (Lamotrigine) 150 Mg Tablet 150 MG PO DAILY (Reported) Levofloxacin (Levofloxacin) 750 Mg Tablet 750 MG PO DAILY Lovastatin (Lovastatin) 20 Mg Tablet 20 MG PO HS (Reported) Metronidazole (Metronidazole) 500 Mg Tablet 500 MG PO TID Pantoprazole DR (Pantoprazole DR) 40 Mg Tablet.dr 40 MG PO BID Pramipexole Dihydrochloride (Mirapex) 0.5 Mg Tablet 0.5 MG PO HS (Reported) Prazosin (Prazosin) 2 Mg Capsule 2 MG PO HS (Reported) Sumatriptan (Imitrex) 25 Mg Tablet 25-50 MG PO DAILY PRN PRN Headache (Reported ) Topiramate (Topiramate) 25 Mg Tablet 25 MG PO DAILY (Reported) Magnus Stokes PA-C Oct 04, 2016 11:20
--- NOTE | 2016-10-04 11:28 | PCM.ANEP1 ---
Post Anesthesia PACU Phase 1 Assessment Anesthetic Administered: GA Level of Alertness: Awake, talking LEONE's with Equal Strength: Yes Pain: Yes Pain Scale Score: 6 Nausea or Vomiting: No CV Function & Hydration Stable: Yes Airway Device: Lungs: Normal Air Movement, Coarse PACU Phase 2 Assessment Patient Instructions Provided: N/A Nicolás Alexander MD Oct 04, 2016 11:28
== END 2016-10-03 10:02 | disposition home or self-care (01) | DRG 346 ==
LOC: SED 13:13 → OSC 17:21
PROVIDERS: ADMIT Surgery; ATTEND Surgery
PROC: 0D9P0ZX Drainage of Rectum, Open Approach, Diagnostic (ICD-10-PCS; principal; 2016-10-02 18:30)
DX: K61.1 Rectal abscess (principal); I10 Essential (primary) hypertension; F43.10 Post-traumatic stress disorder, unspecified; K21.9 Gastro-esophageal reflux disease without esophagitis; E78.5 Hyperlipidemia, unspecified; F17.200 Nicotine dependence, unspecified, uncomplicated; G25.81 Restless legs syndrome; Z79.51 Long term (current) use of inhaled steroids; Z98.890 Other specified postprocedural states

== ENCOUNTER 2016-11-15 16:13 | Emergency (ER) | payer OTHER ==
[~2016-11-15] VITALS: Ht 172.7 cm; Wt 88.2 kg
[~2016-11-15 16:13] MED LIST changes: +ACET-2605 PO; -Dexamethasone 4 mg/mL Inj ONE; -MetoCLOpramide 5 mg/mL 2 mL Inj ONE; -Ondansetron 2 mg/mL 2 mL Inj ONE; -Propofol 10,000 mCg/mL 20 mL Inj ONE; -fentaNYL-PF 50 mCg/mL 2 mL Inj ONE
[2016-11-15 16:23] VITALS: BP 133/82; PULSE 79; RESP 20; O2SAT 100
[2016-11-15 17:13] LABS: BASOPHILS % (AUTO) 0.6 % (0-3); EOSINOPHILS % (AUTO) 1.2 % (0-5); MONOCYTES % (AUTO) 7.8 % (4-12); Mean Corpuscular Volume 93.1 fL (81-100); NEUTROPHILS % (AUTO) 58.9 % (40-74); Platelet Count 218 bil/L (150-400)
[2016-11-15 17:30] LABS: Magnesium 2.2 mg/dL (1.6-2.6)
[2016-11-15] MEDS ORDERED: Ondansetron 2 mg/mL 2 mL Inj IVPUSH ONE (20:45)
[2016-11-15] MEDS ORDERED: HYDROmorphone 1 mg/mL Inj IVPUSH ONE (20:45)
--- NOTE | 2016-11-15 21:14 | ED.REPORT ---
HPI-Abd Pain F 2 and Over Date of Service Nov 15, 2016 ED Provider: Mode Ly MD Nursing Notes Stated Complaint: VOMITING,CRAMPS Chief Complaint: Female Abdominal Pain Nursing Notes Reviewed: Yes Allergies: Coded Allergies: erythromycin base (Verified Allergy, Severe, Anaphylaxis, 07/02/16) venom-honey bee (Verified Allergy, Severe, Anaphylaxis, 07/02/16) Penicillins (Verified Allergy, Intermediate, Anaphylaxis, 07/02/16) Sulfa (Sulfonamide Antibiotics) (Verified Allergy, Unknown, 07/02/16) rash, vomiting Uncoded Allergies: MISC (Allergy, Unknown, all penicillin derived abx, 06/29/16) Scheduled Albuterol Neb Soln (Albuterol Neb Soln) 0.63 Mg/3 Ml Vial.neb Unknown Dose INHALATION BID Aripiprazole (Aripiprazole) 5 Mg Tablet 5 MG PO DAILY Cholecalciferol (Vitamin D3) (Vitamin D3) 2,000 Unit Capsule 2,000 UNIT PO DAILY Citalopram (Citalopram) 40 Mg Tablet 40 MG PO DAILY Duloxetine (Cymbalta) 60 Mg Capsule.dr 60 MG PO BID Gabapentin (Gabapentin) 600 Mg Tablet 600 MG PO BID Ibuprofen (Ibuprofen) 600 Mg Tablet 600 MG PO DAILYWL Lamotrigine (Lamotrigine) 150 Mg Tablet 150 MG PO DAILY Levofloxacin (Levofloxacin) 750 Mg Tablet 750 MG PO DAILY Lovastatin (Lovastatin) 20 Mg Tablet 20 MG PO HS Metronidazole (Metronidazole) 500 Mg Tablet 500 MG PO TID Pantoprazole DR (Pantoprazole DR) 40 Mg Tablet.dr 40 MG PO BID Pramipexole Dihydrochloride (Mirapex) 0.5 Mg Tablet 0.5 MG PO HS Prazosin (Prazosin) 2 Mg Capsule 2 MG PO HS Topiramate (Topiramate) 25 Mg Tablet 25 MG PO DAILY Scheduled PRN Acetaminophen/Diphenhydramine (Tylenol Pm Ex-Strength Caplet) 500 Mg-25 Mg Tablet 1-2 TAB PO PRN For Pain Albuterol HFA (Proair HFA) 8.5 Gm Hfa.aer.ad 2 PUFFS INHALATION Q4H PRN PRN For Shortness of Breath Hydrocodone-Acetaminophen 5-325 mg (Hydrocodone-Acetaminophen 5-325 mg) 1 Each Tablet 1 TABLET PO QID PRN PRN For Pain Sumatriptan (Imitrex) 25 Mg Tablet 25-50 MG PO DAILY PRN PRN Headache General Time Seen by MD: 21:13 Past Medical History Smoking History Light Tobacco Smoker Physical Exam Initial Vital Signs Vital Signs (First) Date Time Temp Pulse Resp B/P Pulse Ox O2 Delivery O2 Flow Rate FiO2 11/15/16 16:23 36.5 79 20 133/82 100 Room Air Interpretation & Diagnostics Lab Results Interpretation Result Diagram: 11/15/16 1701 11/15/16 1701 Test 11/15/16 17:01 11/15/16 19:49 White Blood Count 8.3th/mm3 (3.8-10.1) Red Blood Count 4.36mil/mm3 (3.90-5.20) Hemoglobin 13.5g/dL (12.0-15.6) Hematocrit 40.6% (35.0-46.0) Mean Corpuscular Volume 93.1fL (81-100) Mean Corpuscular Hemoglobin 31.0pg (27.0-35.0) Mean Corpuscular Hemoglobin Concent 33.3% (32.0-37.0) Red Cell Distribution Width 13.2% (12.3-15.4) Platelet Count 218bil/L (150-400) Neutrophils (%) (Auto) 58.9% (40-74) Lymphocytes (%) (Auto) 31.0% (14-46) Monocytes (%) (Auto) 7.8% (4-12) Eosinophils (%) (Auto) 1.2% (0-5) Basophils (%) (Auto) 0.6% (0-3) Sodium Level 140mEq/L (134-144) Potassium Level 4.3mEq/L (3.5-5.2) Chloride Level 104mEq/L (97-108) Carbon Dioxide Level 26mmol/L (18-29) Blood Urea Nitrogen 10mg/dL (6-20) Creatinine 0.71mg/dL (0.57-1.00) Estimat Glomerular Filtration Rate 131mL/min (>59) Glucose Level 106mg/dL (60-99) Calcium Level 9.4mg/dL (8.5-10.1) Magnesium Level 2.2mg/dL (1.6-2.6) Total Bilirubin 0.3mg/dL (0.0-1.2) Aspartate Amino Transf (AST/SGOT) 14U/L (0-50) Alanine Aminotransferase (ALT/SGPT) 14U/L (0-32) Alkaline Phosphatase 68U/L (25-150) Total Protein 6.6g/dL (6.4-8.4) Albumin 4.0g/dL (3.4-5.0) Lipase 28U/L (13-60) Hold Alvarado Top Tube Received (Received) Hold Urine Received (Received) Discharge & Departure Referrals: Raz Thibodeaux DO (PCP) Mode Ly MD Nov 15, 2016 21:14
--- NOTE | 2016-11-15 21:17 | ED.REPORT ---
HPI-NVD Date of Service Nov 15, 2016 ED Provider: Mode Ly MD Pt is a 41 year old female with a hx of chronic pain, HTN, hyperlipidemia, Bipolar and depression presenting to the ED complaining of vomiting onset 1 week ago. Associated symptoms include abdominal cramping, fatigue, decreased appetite, and diffuse body pain. Denies any other symptoms at this time. She has an abscess in her vaginal area, and on her buttock that have not been drained, but she has had an MRI and is scheduled for a surgery consult in 4 days. She takes hydrocodone (325 mg PRN), ibuprofen, gabapentin, a muscle relaxer, and Cymbalta. Nursing Notes Stated Complaint: VOMITING,CRAMPS Chief Complaint: Female Abdominal Pain Nursing Notes Reviewed: Yes Allergies: Coded Allergies: erythromycin base (Verified Allergy, Severe, Anaphylaxis, 07/02/16) venom-honey bee (Verified Allergy, Severe, Anaphylaxis, 07/02/16) Penicillins (Verified Allergy, Intermediate, Anaphylaxis, 07/02/16) Sulfa (Sulfonamide Antibiotics) (Verified Allergy, Unknown, 07/02/16) rash, vomiting Uncoded Allergies: MISC (Allergy, Unknown, all penicillin derived abx, 06/29/16) Scheduled Albuterol Neb Soln (Albuterol Neb Soln) 0.63 Mg/3 Ml Vial.neb Unknown Dose INHALATION BID Aripiprazole (Aripiprazole) 5 Mg Tablet 5 MG PO DAILY Cholecalciferol (Vitamin D3) (Vitamin D3) 2,000 Unit Capsule 2,000 UNIT PO DAILY Citalopram (Citalopram) 40 Mg Tablet 40 MG PO DAILY Duloxetine (Cymbalta) 60 Mg Capsule.dr 60 MG PO BID Gabapentin (Gabapentin) 600 Mg Tablet 600 MG PO BID Ibuprofen (Ibuprofen) 600 Mg Tablet 600 MG PO DAILYWL Lamotrigine (Lamotrigine) 150 Mg Tablet 150 MG PO DAILY Levofloxacin (Levofloxacin) 750 Mg Tablet 750 MG PO DAILY Lovastatin (Lovastatin) 20 Mg Tablet 20 MG PO HS Metronidazole (Metronidazole) 500 Mg Tablet 500 MG PO TID Pantoprazole DR (Pantoprazole DR) 40 Mg Tablet.dr 40 MG PO BID Pramipexole Dihydrochloride (Mirapex) 0.5 Mg Tablet 0.5 MG PO HS Prazosin (Prazosin) 2 Mg Capsule 2 MG PO HS Topiramate (Topiramate) 25 Mg Tablet 25 MG PO DAILY Scheduled PRN Acetaminophen/Diphenhydramine (Tylenol Pm Ex-Strength Caplet) 500 Mg-25 Mg Tablet 1-2 TAB PO PRN For Pain Albuterol HFA (Proair HFA) 8.5 Gm Hfa.aer.ad 2 PUFFS INHALATION Q4H PRN PRN For Shortness of Breath Hydrocodone-Acetaminophen 5-325 mg (Hydrocodone-Acetaminophen 5-325 mg) 1 Each Tablet 1 TABLET PO QID PRN PRN For Pain Sumatriptan (Imitrex) 25 Mg Tablet 25-50 MG PO DAILY PRN PRN Headache General Time Seen by MD: 21:13 Chief Complaint Vomiting Hx Obtained From: Patient Arrived By: Walk-in Onset Occurred: 1 week ago Symptom Duration: Since onset Location: : Diffuse Quality: Painful Severity: Current: Moderate Severity: Maximum: Moderate Associated with: Reports: Abdominal pain Recent Healthcare: No recent doctor visit, No recent hospitalization Similar Sx Previous: No Past Medical History Previous abscess culture on 10/02 negative for any isolateable growth Past Medical History Chronic pain PTSD Bipolar OCD Sleep apnea Anxiety Reports: GERD, Hyperlipidemia, Hypertension, Mental illness Reports: Depression Past Surgical History Facial bone repair Left shoulder surgery Perianal abscess drain placement and subsequent removal - Dr. Charlton Cholecystectomy - Dr. Horne Tricia-anal fistula repair Reports: Hysterectomy, Tonsillectomy Reports: Tubal ligation Smoking History Light Tobacco Smoker Social History Other Social History: Good social support Ambulatory Status Independent Review of Systems Review of Systems Note: + Decreased appetite, body aches Constitutional: Reports: Fatigue, Malaise GI: Reports: Abdominal pain, Nausea, Vomiting Complete sys rev & neg: except as marked. Respiratory: Denies: Shortness of breath, Wheezing Cardiovascular: Denies: Chest pain, Syncope Physical Exam Initial Vital Signs Vital Signs (First) Date Time Temp Pulse Resp B/P Pulse Ox O2 Delivery O2 Flow Rate FiO2 11/15/16 16:23 36.5 79 20 133/82 100 Room Air Initial VS: Reviewed, Vital signs normal Head / Eyes: Atraumatic, Normocephalic, PERRL ENT: Mucous membranes moist, Conjunctiva normal, No scleral icterus Respiratory: Breath sounds normal, Clear to auscultation, No respiratory distress Cardiovascular: Regular rate & rhythm, Heart sounds normal, Intact distal pulses Extremities: Vascular intact, Neuro intact, No swelling, No tenderness Neurologic: Alert, Oriented, Nonfocal Psychiatric: Mood/affect normal, Behavior normal, Normal thought content General/Constitutional: Awake, Alert, No acute distress, Well appearing Abdomen: Atraumatic, Soft, No guarding, No rebound Tenderness/Guarding/Rebound: Positive: Tender diffuse (Mild) Skin: Warm, Dry Small darkened indurated area right side of anus. Tender area in inferior portion of right labia majora. No drainable abscess palpable. Interpretation & Diagnostics Lab Results Interpretation Result Diagram: 11/15/16 1701 11/15/16 1701 Test 11/15/16 17:01 11/15/16 19:49 11/15/16 22:01 White Blood Count 8.3th/mm3 (3.8-10.1) Red Blood Count 4.36mil/mm3 (3.90-5.20) Hemoglobin 13.5g/dL (12.0-15.6) Hematocrit 40.6% (35.0-46.0) Mean Corpuscular Volume 93.1fL (81-100) Mean Corpuscular Hemoglobin 31.0pg (27.0-35.0) Mean Corpuscular Hemoglobin Concent 33.3% (32.0-37.0) Red Cell Distribution Width 13.2% (12.3-15.4) Platelet Count 218bil/L (150-400) Neutrophils (%) (Auto) 58.9% (40-74) Lymphocytes (%) (Auto) 31.0% (14-46) Monocytes (%) (Auto) 7.8% (4-12) Eosinophils (%) (Auto) 1.2% (0-5) Basophils (%) (Auto) 0.6% (0-3) Sodium Level 140mEq/L (134-144) Potassium Level 4.3mEq/L (3.5-5.2) Chloride Level 104mEq/L (97-108) Carbon Dioxide Level 26mmol/L (18-29) Blood Urea Nitrogen 10mg/dL (6-20) Creatinine 0.71mg/dL (0.57-1.00) Estimat Glomerular Filtration Rate 131mL/min (>59) Glucose Level 106mg/dL (60-99) Calcium Level 9.4mg/dL (8.5-10.1) Magnesium Level 2.2mg/dL (1.6-2.6) Total Bilirubin 0.3mg/dL (0.0-1.2) Aspartate Amino Transf (AST/SGOT) 14U/L (0-50) Alanine Aminotransferase (ALT/SGPT) 14U/L (0-32) Alkaline Phosphatase 68U/L (25-150) Total Protein 6.6g/dL (6.4-8.4) Albumin 4.0g/dL (3.4-5.0) Lipase 28U/L (13-60) Hold Alvarado Top Tube Received (Received) Hold Urine Received (Received) Urine Color Yellow (YELLOW) Urine Appearance Clear (CLEAR,HAZY) Urine pH 6.0 (5.0-8.0) Urine Specific [place] 1.010 (1.003-1.035) Urine Protein Negativemg/dL (NEG,TRACE) Urine Glucose (UA) Negativemg/dL (NEGATIVE) Urine Ketones Negativemg/dL (NEGATIVE) Urine Occult Blood Negative (NEGATIVE) Urine Nitrite Negative (NEGATIVE) Urine Bilirubin Negative (NEGATIVE) Urine Urobilinogen Normalmg/dL (NORMAL) Urine Leukocyte Esterase Negative (NEGATIVE) Urine RBC 0-2/hpf (0-2) Urine WBC 0-5/hpf (0-5) Urine Epithelial Cells Few/hpf (NONE-MOD) Urine Crystals None seen (NONE SEEN) Urine Bacteria None/hpf (NONE-FEW) Urine Hyaline Casts None/lpf (NONE) Urine Granular Casts None seen (NONE SEEN) Urine Waxy Casts None seen (NONE SEEN) Urine Red Blood Cell Casts None seen (NONE SEEN) Urine White Blood Cell Casts None seen (NONE SEEN) Urine Mucus None seen (None Seen) Urine Trichomonas None seen (NONE SEEN) Urine Yeast None (NONE SEEN) Urinalysis Comment None Urine Culture Reflexed Not indicated Lab values outside NL range: no clinical significance. Re-Eval/Medical Decision Med Decision/Clinical Course 41-year-old female who has nonspecific symptoms of fatigue and malaise, but no evidence of significant change in the perirectal area. There may be a developing fistula track but no significant abscess on physical exam or on the previous MRI. She has an appointment coming up with the surgeon on Tuesday, 4 days hence. She was placed on clindamycin. Re-Evaluation/Progress : Time of Eval: 21:39 Patient Status: Condition improved Re-Evaluation/Progress Note: Discussed MRI results. No palpable drainable abscess appreciated. Counseled Regarding: Diagnosis, Lab results, Need for follow-up, When/why to return to ED Discharge & Departure Impression: Primary Impression: Perirectal abscess Disposition: Home Discharge Condition All VS Reviewed: Yes Condition: Improved Additional Instructions: Your labs are all normal. Previous cultures of this area did not grow out any specific or primary bacteria. The MRI scan done 3 weeks ago shows possibly developing fistula but no fluid collections. On physical examination the areas of concern right now do not appear to be drainable abscesses. Recommend antibiotics and follow-up with your surgeon as planned on Tuesday. Return if you have fever or drainage. Referrals: Raz Thibodeaux DO (PCP) Gerald Attestation Portions of this note were transcribed by Tanja Byers. I, Dr. Ly personally performed the history, physical exam and medical decision-making; I reviewed and confirmed the accuracy of the information in the transcribed note. Signed by: Gerald Maria, 11/15/2016 at 2203. copies to: Raz Thibodeaux Howard L MD Nov 15, 2016 21:17 TANJA BYERS Nov 15, 2016 21:24
[2016-11-15 22:21] LABS: APPEARANCE,URINE CLEAR (CLEAR,HAZY); COLOR,URINE YELLOW (YELLOW)
[2016-11-15 22:22] LABS: OCCULT BLOOD,URINE NEGATIVE (NEGATIVE); UROBILINOGEN,URINE NORMAL (NORMAL)
[2016-11-15] MEDS ORDERED: HYDROcodone-APAP 5-325 mg Tablet PO ONE (22:25)
[2016-11-15 22:34] VITALS: BP 138/78; PULSE 78; RESP 18; O2SAT 98
[2016-11-16] MEDS ORDERED: _Clindamycin 150 mg Capsule PO SCH (06:30)
== END 2016-11-15 22:35 | disposition home or self-care (01) ==
LOC: SED 16:13
DX: K61.1 Rectal abscess (principal); I10 Essential (primary) hypertension; E78.5 Hyperlipidemia, unspecified; F31.9 Bipolar disorder, unspecified; F32.9 Major depressive disorder, single episode, unspecified; F43.10 Post-traumatic stress disorder, unspecified; F41.9 Anxiety disorder, unspecified; K21.9 Gastro-esophageal reflux disease without esophagitis; G89.29 Other chronic pain; F17.200 Nicotine dependence, unspecified, uncomplicated; Z88.0 Allergy status to penicillin; Z88.2 Allergy status to sulfonamides; Z88.1 Allergy status to other antibiotic agents; Z88.8 Allergy status to other drugs, medicaments and biological substances; Z91.030 Bee allergy status
CPT/HCPCS: 36415; 80053; 81000; 81025; 83690; 83735; 85025; 96374; 96375; 99284; J1170; J2405

== ENCOUNTER 2016-11-23 13:00 | Observation (INO) | payer OTHER ==
[~2016-11-23] VITALS: Ht 172.7 cm; Wt 91.4 kg
[2016-11-23] VITALS (20 sets, daily range): BP systolic 101–123; BP diastolic 61–74; PULSE 76–95; RESP 14–24; O2SAT 88–99
[~2016-11-23 13:00] MED LIST changes: +Dexamethasone 4 mg/mL Inj ONE; +Ketamine 10 mg/mL 20 mL Inj ONE; +Ondansetron 2 mg/mL 2 mL Inj ONE; +Propofol 10,000 mCg/mL 20 mL Inj ONE; +Succinylcholine Chloride 20 mg/mL 5 mL Inj ONE; +fentaNYL-PF 50 mCg/mL 2 mL Inj ONE
[2016-11-23] MEDS ORDERED: Lactated Ringer's 1,000 ML IV ONE (13:27)
[2016-11-23] MEDS ORDERED: Lactated Ringer's 1,000 ML IV SCH (19:53)
[2016-11-23] MEDS ORDERED: Lactated Ringer's 500 ML IV PRN (19:53)
[2016-11-23] MEDS ORDERED: fentaNYL-PF 50 mCg/mL 2 mL Inj IVPUSH PRN (19:55)
[2016-11-23] MEDS ORDERED: MetoCLOpramide 5 mg/mL 2 mL Inj IVPUSH PRN (19:55)
[2016-11-23] MEDS ORDERED: EPHEDrine Sulfate 50 mg/mL Inj IVPUSH PRN (19:55)
[2016-11-23] MEDS ORDERED: Dexamethasone 4 mg/mL Inj IVPUSH PRN (19:55)
[2016-11-23] MEDS ORDERED: HYDROmorphone 1 mg/mL Inj IVPUSH PRN (19:55)
[2016-11-23] MEDS ORDERED: Phenylephrine 10,000 mCg/mL Inj IVPUSH PRN (19:55)
[2016-11-23] MEDS ORDERED: Ondansetron 2 mg/mL 2 mL Inj IVPUSH PRN (19:55)
[2016-11-23] MEDS ORDERED: Labetalol 5 mg/mL 4 mL Inj IV PRN (19:55)
[2016-11-23] MEDS ORDERED: hydrALAZINE 20 mg/mL Inj IVPUSH PRN (19:55)
--- NOTE | 2016-11-23 19:55 | PCM.HPANE ---
Patient Data Date of Service: Nov 23, 2016 Surgeon Admitting Provider: Attending Provider:Mary Ann Nelson MD Primary Care Physician:Raz Thibodeaux DO Other Provider:Macey Garcia Anesthesia Reason for Visit Anal Fissure, Perianal Abscess Ht/WT & BMI Height (Feet): 5 Height (Inches): 8 Weight (Kilograms): 91.4 Body Mass Index 30.00 Allergies Coded Allergies: erythromycin base (Verified Allergy, Severe, Anaphylaxis, 11/23/16) venom-honey bee (Verified Allergy, Severe, Anaphylaxis, 11/23/16) Penicillins (Verified Allergy, Intermediate, Anaphylaxis, 11/23/16) Sulfa (Sulfonamide Antibiotics) (Verified Allergy, Unknown, 11/23/16) rash, vomiting Uncoded Allergies: MISC (Allergy, Unknown, all penicillin derived abx, 06/29/16) Past Anesthesia History Anesthesia History: Denies:: Abnormal Airway, Anesthesia Reactions, Difficult Intubation, Fam Anesthesia Reaction, Fam Malignant Hypertherm, Malignant Hyperthermia Diabetes History Hx Diabetes?: No MRSA MRSA: No Medications Blood Thinner: Aspirin Hypertension Medication: No Home Meds Incl Beta Getachew: No Active Scripts Metronidazole 500 Mg [id number] Mg PO TID #21 TABLET Ref 0 Prov:Jazmin Horne MD 09/22/16 Levofloxacin 750 Mg Bqiwcj878 Mg PO DAILY #7 TABLET Prov:Jazmin Horne MD 09/22/[address] 40 Mg Tablet.dr40 Mg PO BID #60 CAPSULE Ref 2 Prov:Jazmin Horne MD 07/06/16 Hydrocodone-Acetaminophen 5-325 mg 1 Each Tablet1 Tablet PO QID PRN For Pain # 25 TABLET Ref 0 Prov:Jazmin Horne MD 07/06/16 Reported Medications Acetaminophen/Diphenhydramine (Tylenol Pm Ex-Strength Caplet)500 Mg-25 Mg Tablet1-2 Tab PO PRN For Pain 10/02/16 Albuterol Neb Soln 0.63 Mg/3 Ml Vial.nebUnknown Dose INHALATION BID Ref 0 09/22/16 Cholecalciferol (Vitamin D3) (Vitamin D3)2,000 Unit Capsule2,000 Unit PO DAILY 07/28/16 Albuterol HFA (Proair HFA)8.5 Gm Hfa.aer.ad2 Puffs INHALATION Q4H PRN For Shortness of Breath #1 INHALER 06/29/16 Sumatriptan (Imitrex)25 Mg Xotenx56-80 Mg PO DAILY PRN Headache 06/29/16 Prazosin 2 Mg Capsule2 Mg PO HS 06/29/16 Aripiprazole 5 Mg Tablet5 Mg PO DAILY 06/29/16 Lamotrigine 150 Mg Mjovxm053 Mg PO DAILY Ref 0 06/29/16 Topiramate 25 Mg Wmntrw14 Mg PO DAILY Ref 0 06/29/16 Gabapentin 600 Mg Llvrob692 Mg PO BID Ref 0 05/20/16 Pramipexole Dihydrochloride (Mirapex)0.5 Mg Tablet0.5 Mg PO HS 05/19/16 Lovastatin 20 Mg Anaugy62 Mg PO HS #30 TABLET Ref 0 05/19/16 Ibuprofen 600 Mg Ikgqok904 Mg PO DAILYWL Ref 0 05/19/16 Duloxetine (Cymbalta)60 Mg Capsule.dr60 Mg PO BID Ref 0 05/19/16 Citalopram 40 Mg Qzhnpl20 Mg PO DAILY 30 Days Ref 0 05/19/16 History History of ENT Problems?: No HEENT History: Denies:: Abnormal Airway Difficult Intubation Dysphagia Hearing Problem Denture Type: None Teeth Condition: Within Normal Limits Hx of Heart Problems?: Yes Cardiovascular History: Denies:: AICD Atrial Fibrillation Chest Pain Congestive Heart Failure Hypertension Pacemaker Valvular Heart Disease Hx of Respiratory Problem?: Yes Respiratory History: Positive for:: Asthma Cough (trace bilateral pleural effusions) Denies:: COPD Hemoptysis Oxygen Administration Pneumonia Tuberculosis Use of C-PAP Machine (has CPAP, dog has chewed facial mask, replacement has not arrived) Hx Neurologic Problems?: Yes Neurological History: Positive for:: Headaches Denies:: CVA Dementia Multiple Sclerosis Parkinson's Disease Seizures Hx of GI Problems?: Yes Gastrointestinal History: Positive for:: Gastroesphageal Reflux Hx of Problems?: No Genitourinary History: Denies:: Kidney Stones Urinary Tract Infection Female Hx: Denies:: Currently Endometriosis Pelvic Inflammatory Problems with Breasts? Skin History: Positive for:: History Skin Disorders? (SCORIASIS) Denies:: Pressure Ulcers Hx Musculoskeletal Problems?: No Musculoskeletal History: Denies:: Back Injury Joint Replacement Musculoskeletal Trauma Hx of Psycho/Social Problems?: Yes Psycho Social History: Positive for:: Anxiety Bipolar Disorder Hx Depression Denies:: Suicide Attempt Hx Surgeries?: Yes (left shoulder, tubal, repeated rectal EUA- abscess tx) Hx Any Other Health Problems?: Yes Other History: Positive for:: Hospitalization Denies:: Cancer Thyroid Disease History Blood Transfusions: Denies:: Blood Transfuse Reaction Blood Transfusions Hx Diabetes: No Hx Alcohol Use: Yes (socially)Hx Substance Use: No Smoking Status: Never Smoker Have You Smoked inLast 12 mo: Yes Stop/Bang Treated for Sleep Apnea?: No Do You Have a CPAP Machine?: No S-Snoring: Do You Snore Loudly: No T-Tired: feel tired, fatigued: No O-Obsered: Observed not breath: No P-Blood Pressure: treated: No B- Body Mass Index > 35 kg/m2: No A- Age over 50: No N- Neck Large Circumference: No G- Gender Male: No SHELIA Risk Assessment: Low Risk, <3 Yes Risk Assessment Category Category 1A: Patient has history of documented sleep apnea, and HAS NOT received any narcotic, sedative or anesthesia administration during this stay. Category 1B: Patient has history of documented sleep apnea, and HAS received any narcotic , sedative or anesthesia administration during this stay Category 2: Patient has SUSPECTED Obstructive Sleep Apnea, and HAS received any narcotic , sedative or anesthesia administration during this stay. Category 3: Patient has SUSPECTED Obstructive Sleep Apnea and HAS NOT received narcotic, sedative or anesthesia administration during this stay. Category 4: Outpatient in Procedural Areas with known sleep apnea or who screen positive for High Risk via the STOP/BANG questionnaire. Exam Exam Vital Signs Vital Signs Date Time Temp Pulse Resp B/P Pulse Ox O2 Delivery O2 Flow Rate FiO2 11/23/16 13:50 36.3 95 16 107/61 99 Room Air 11/23/16 13:29 CPAP/BIPAP General Appearance: Alert, Oriented X3, Cooperative, No Acute Distress HEENT/AIRWAY: MP 2 Lungs: Clear to Auscultation, Normal Air Movement Heart: Exam Unremarkable, Regular Rate/Rhythm, No Murmurs/Rubs/Gallops Meds/Labs/Diagnostics Admission Meds Current Medications Lactated Ringer's (Lr) 1,000 ml @ ud STK-MED ONCE IV Last administered on 11/23t 13:27; Start 11/23/16 at 13:27; Stop 11/23/16 at 13:28; Status DC Plan Impression Patient chart reviewed, patient interviewed and anesthestic plan with risks, benefits, and alternatives discussed, and informed consent obtained. NPO per Anesth. Guidelines: Yes ASA Physical Status: ASA2 Mod Systemic Disease Anesthetic Plan: GA Bene/Risks/Altern/Consents: Yes HP Complete Prior to Induction: Yes Fernando Angulo MD Nov 23, 2016 14:07 Baldev Rolel MD Nov 23, 2016 19:55
[2016-11-23] MEDS ORDERED: oxyCODONE-Acetamin 5-325 mg Tablet PO PRN (20:45)
[2016-11-23] MEDS ORDERED: Bupivacaine-MPF 0.5% 30 mL Inj INFILTRATE ONE (20:46)
--- NOTE | 2016-11-23 20:48 | PCM.DISURG ---
Surgical Discharge Instruction Date of Service Nov 23, 2016 Dates of Hospitalization Date of Hospital Admission Providers Admitting Physician: Primary Care Physician: Raz Thibodeaux DO Attending Physician: Mary Ann Nelson MD Diet Discharge Diet: No restrictions Activity Discharge Activity-General: Be up and about, Activity as pain allows, No driving while taking narcotic Dressing and Incisional Care Dressing Care: Other (Remove packing in 24 hours. Take daily sitz baths after the packing is removed. ) Hygiene: May shower Follow Up Plan Follow Up Plan Follow up with Dr. Nelson in 2-3 weeks. Call at any time with questions or concerns. Call your provider for: Fever, Chills, Wound redness, Discharge @ incision, pus discharge Jarrett Santos MD Nov 23, 2016 20:47
--- NOTE | 2016-11-23 21:39 | OP ---
[address] [address] OPERATIVE REPORT PATIENT: ASHLEY FAY : 1975 MR#: [id number] ADMIT: 11/23/2016 JOB ID: [id number] DATE OF SURGERY: 11/23/2016 PREOPERATIVE DIAGNOSIS(ES): Perianal abscess with anal fissure. POSTOPERATIVE DIAGNOSIS(ES): Perineal abscess with anal fissure. PROCEDURE PERFORMED: Incision and drainage of perianal abscess with rectal examination under anesthesia. SURGEON: Mary Ann Nelson MD. INDICATIONS: The patient is a 41-year-old lady who presented with painful swelling on the left side of her anus and had incision and drainage by Dr. Charlton on June 30, 2016. She then presented back to the clinic with recurrent symptoms on September 22, 2016, and had an incision and drainage with seton placement with Dr. Horne on September 22, 2016. She again had to go back on October 02, 2016 for incision and drainage by Dr. Bragg at which point no fistulous communication was seen and cultures at that time revealed scant normal zeny. She changed the packing for a couple of weeks and then it eventually healed. She last saw Dr. Charlton on October 12, 2016, when she had a pelvic MRI performed. She has also had chronic pain with bowel movements. MRI showed some interval improvement of the inflammatory process in the left margin of the posterolateral anal border. Then, when I saw her in clinic, she had a draining sinus on the left, lateral to her left labia and another swelling over 5 cm left of the anus in addition to her anal fissure posteriorly. After discussing the risks, benefits, and alternatives, she is here today for rectal examination under anesthesia with incision of the perineal abscess. PROCEDURE DETAILS: She was placed in supine position and underwent smooth induction of general anesthesia. She was then placed in a lithotomy position and the perineum was prepped and draped in the usual sterile fashion. Surgical time-out was undertaken using safety checklist, and all were in agreement. I began by aspirating the obviously prominent abscess between the left buttock and perineum and sent pus for culture. Then, I opened the skin up with a knife and probed the area and found that there was no abscess tracking deep. It was mostly underneath the skin and was not going anywhere close to the anus. I examined the rectum to be sure and other than the chronic fissure posteriorly, I did not notice any obvious mucosal abnormalities. At this time, I irrigated the abscess cavity and infiltrated with 0.5% bupivacaine and packed it with half-inch packing gauze, placed a pad and mesh underwear for dressing. The patient was recovered from anesthesia and was taken to the recovery room in stable condition.
[2016-11-24] VITALS: BP 105/67; PULSE 79; RESP 18; O2SAT 93
--- NOTE | 2016-11-24 00:11 | NUR ---
Discharge Pt arrived from PACU to [facility] [place] # [id number] approx at 2240 to recover and then D/C home. All D/C criteria meet. SPO2 93-95 on RA. Pt is alert. She ambulated in hallway approx. 250 feet and tolerated well. Pt voided and tolerated PO intake well. D?C instruction given and she verbalizes understanding. Pt declined W/C and insisted on walking to her car. Pt departed at 0005 with her boyfriend.
--- NOTE | 2016-11-24 14:38 | PCM.ANEP1 ---
Post Anesthesia PACU Phase 1 Assessment Anesthetic Administered: GA Level of Alertness: Awake, talking Pain: No Nausea or Vomiting: No CV Function & Hydration Stable: Yes Airway Device: Oxygen Delivery: Room Air Lungs: Clear to Auscultation, Normal Air Movement PACU Phase 2 Assessment Complications: No Follow up Care: No Patient Instructions Provided: N/A Baldev Rolle MD Nov 24, 2016 14:38
== END 2016-11-24 00:05 | disposition home or self-care (01) ==
LOC: SAS 13:00 → MPC 22:58
PROVIDERS: ADMIT Student in an Organized Health Care Education/Training Program; ATTEND Student in an Organized Health Care Education/Training Program
DX: K61.0 Anal abscess (principal); J45.909 Unspecified asthma, uncomplicated; K21.9 Gastro-esophageal reflux disease without esophagitis; F41.9 Anxiety disorder, unspecified; F32.9 Major depressive disorder, single episode, unspecified; G47.30 Sleep apnea, unspecified; F43.10 Post-traumatic stress disorder, unspecified; F42.9 Obsessive-compulsive disorder, unspecified; E66.9 Obesity, unspecified; F17.210 Nicotine dependence, cigarettes, uncomplicated
CPT/HCPCS: 36415; 46050; 84703; 87070; 87075; 87205; G0378; G0480; J0330; J1100; J1885; J2250; J2405; J3010; J7120

== ENCOUNTER 2017-01-17 20:30 | Emergency (ER) | payer OTHER ==
[~2017-01-17] VITALS: Ht 172.7 cm; Wt 87.7 kg
[~2017-01-17 20:30] MED LIST changes: -Dexamethasone 4 mg/mL Inj ONE; -Ketamine 10 mg/mL 20 mL Inj ONE; -Ondansetron 2 mg/mL 2 mL Inj ONE; -Propofol 10,000 mCg/mL 20 mL Inj ONE; -Succinylcholine Chloride 20 mg/mL 5 mL Inj ONE; -fentaNYL-PF 50 mCg/mL 2 mL Inj ONE
[2017-01-17 20:53] VITALS: BP 126/83; PULSE 103; RESP 18; O2SAT 98
[2017-01-17 21:44] LABS: BASOPHILS % (AUTO) 0.3 % (0-3); EOSINOPHILS % (AUTO) 0.6 % (0-5); MONOCYTES % (AUTO) 5.5 % (4-12); Mean Corpuscular Hemoglobin 30.3 pg (27.0-35.0); Platelet Count 246 bil/L (150-400)
[2017-01-17 22:04] LABS: Magnesium 2.1 mg/dL (1.6-2.6)
--- NOTE | 2017-01-17 22:24 | ED.REPORT ---
HPI-Abd Pain F 40 and Over Date of Service Jan 17, 2017 ED Provider: Mode Ly MD A 42 year old female with a history of cholecystectomy, chronic pain, hypertension, hyperlipidemia, anxiety and hysterectomy presents to the ED complaining of abdominal pain. The pt noticed mild right-sided cramping pain this morning, but this worsened acutely to a stabbing RLQ pain at 19:00 this evening. This has been accompanied by nausea and vomiting, though she denies dysuria and fever. She also denies any history of kidney stones. The pt takes Gabapentin, ibuprofen and PRN hydrocodone for pain. Nursing Notes Stated Complaint: ABDOMINAL PAIN, VOMITING Chief Complaint: Female Abdominal Pain Nursing Notes Reviewed: Yes Allergies: Coded Allergies: erythromycin base (Verified Allergy, Severe, Anaphylaxis, 01/17/17) venom-honey bee (Verified Allergy, Severe, Anaphylaxis, 11/23/16) Penicillins (Verified Allergy, Intermediate, Anaphylaxis, 11/23/16) Sulfa (Sulfonamide Antibiotics) (Verified Allergy, Unknown, 11/23/16) rash, vomiting Uncoded Allergies: MISC (Allergy, Unknown, all penicillin derived abx, 06/29/16) Scheduled Albuterol Neb Soln (Albuterol Neb Soln) 0.63 Mg/3 Ml Vial.neb Unknown Dose INHALATION BID Aripiprazole (Aripiprazole) 5 Mg Tablet 5 MG PO DAILY Cholecalciferol (Vitamin D3) (Vitamin D3) 2,000 Unit Capsule 2,000 UNIT PO DAILY Citalopram (Citalopram) 40 Mg Tablet 40 MG PO DAILY Duloxetine (Cymbalta) 60 Mg Capsule.dr 60 MG PO BID Gabapentin (Gabapentin) 600 Mg Tablet 600 MG PO BID Ibuprofen (Ibuprofen) 600 Mg Tablet 600 MG PO DAILYWL Lamotrigine (Lamotrigine) 150 Mg Tablet 150 MG PO DAILY Levofloxacin (Levofloxacin) 750 Mg Tablet 750 MG PO DAILY Lovastatin (Lovastatin) 20 Mg Tablet 20 MG PO HS Metronidazole (Metronidazole) 500 Mg Tablet 500 MG PO TID Pantoprazole DR (Pantoprazole DR) 40 Mg Tablet.dr 40 MG PO BID Pramipexole Dihydrochloride (Mirapex) 0.5 Mg Tablet 0.5 MG PO HS Prazosin (Prazosin) 2 Mg Capsule 2 MG PO HS Topiramate (Topiramate) 25 Mg Tablet 25 MG PO DAILY Scheduled PRN Acetaminophen/Diphenhydramine (Tylenol Pm Ex-Strength Caplet) 500 Mg-25 Mg Tablet 1-2 TAB PO PRN For Pain Albuterol HFA (Proair HFA) 8.5 Gm Hfa.aer.ad 2 PUFFS INHALATION Q4H PRN PRN For Shortness of Breath Hydrocodone-Acetaminophen 5-325 mg (Hydrocodone-Acetaminophen 5-325 mg) 1 Each Tablet 1 TABLET PO QID PRN PRN For Pain Sumatriptan (Imitrex) 25 Mg Tablet 25-50 MG PO DAILY PRN PRN Headache General Time Seen by MD: 22:55 Chief Complaint Abdominal pain Hx Obtained From: Patient Arrived By: Walk-in Sudden in Onset?: No Onset Occurred: 13 - 16 hours ago Symptom Duration: Since onset Recent Healthcare: Recent doctor visit, Recent hospitalization Similar Sx Previous: No Past Medical History Past Medical History Chronic pain PTSD Bipolar OCD Sleep apnea Anxiety Reports: GERD, Hyperlipidemia, Hypertension, Mental illness Reports: Depression Past Surgical History Facial bone repair Left shoulder surgery Perianal abscess drain placement and subsequent removal - Dr. Charlton Cholecystectomy - Dr. Horne Tricia-anal fistula repair Reports: Hysterectomy, Tonsillectomy Reports: Tubal ligation Smoking History Never Smoker Social History Other Social History: Good social support Ambulatory Status Independent Review of Systems Constitutional: Denies: Fever Respiratory: Denies: Non-productive cough, Shortness of breath Cardiovascular: Denies: Chest pain GI: Reports: Abdominal pain, Denies: Vomiting Female: Denies: Dysuria Musculoskeletal: Denies: Back pain, Neck pain Complete sys rev & neg: except as marked. Skin: Denies Rash Physical Exam Vital Signs Vital Signs (First) Date Time Temp Pulse Resp B/P Pulse Ox O2 Delivery O2 Flow Rate FiO2 01/17/17 20:53 36.8 103 18 126/83 98 Room Air Initial VS: Reviewed, Vital signs abnormal General/Constitutional: Awake, Alert Respiratory / Chest: Atraumatic, Breath sounds NL, Breath sounds = bilat, No respiratory distress Cardiovascular: Heart rate NL, Regular rhythm, Heart sounds NL Abdomen: Atraumatic, Soft RLQ tenderness Back: Atraumatic, Full range of motion, No CVA tenderness Head / Eyes: Atraumatic, Normocephalic, PERRL, EOMI ENT: Atraumatic, Airway patent, Mucous membranes moist Skin: Atraumatic, Color NL, No rash, Warm, Dry Neurologic: Oriented X3, Speech NL, No motor deficits, No sensory deficits Neck: Atraumatic, Supple, Full range of motion Upper Extremity / MS: Atraumatic, Full range of motion Lower Extremity / Pelvis / MS: Atraumatic, Full range of motion Psychiatric: Affect NL, Mood NL Interpretation & Diagnostics Lab Results Interpretation Result Diagram: 01/17/17213901/17/172139 Test 01/17/17 21:40 01/17/17 23:53 White Blood Count 13.2th/mm3 (3.8-10.1) Red Blood Count 5.18mil/mm3 (3.90-5.20) Hemoglobin 15.7g/dL (12.0-15.6) Hematocrit 46.6% (35.0-46.0) Mean Corpuscular Volume 90.0fL (81-100) Mean Corpuscular Hemoglobin 30.3pg (27.0-35.0) Mean Corpuscular Hemoglobin Concent 33.7% (32.0-37.0) Red Cell Distribution Width 13.6% (12.3-15.4) Platelet Count 246bil/L (150-400) Neutrophils (%) (Auto) 79.0% (40-74) Lymphocytes (%) (Auto) 14.0% (14-46) Monocytes (%) (Auto) 5.5% (4-12) Eosinophils (%) (Auto) 0.6% (0-5) Basophils (%) (Auto) 0.3% (0-3) Sodium Level 138mEq/L (134-144) Potassium Level 4.5mEq/L (3.5-5.2) Chloride Level 103mEq/L (97-108) Carbon Dioxide Level 18mmol/L (18-29) Blood Urea Nitrogen 19mg/dL (6-24) Creatinine 0.83mg/dL (0.57-1.00) Estimat Glomerular Filtration Rate 109mL/min (>59) Glucose Level 104mg/dL (60-99) Calcium Level 9.2mg/dL (8.5-10.1) Magnesium Level 2.1mg/dL (1.6-2.6) Total Bilirubin 0.2mg/dL (0.0-1.2) Aspartate Amino Transf (AST/SGOT) 16U/L (0-50) Alanine Aminotransferase (ALT/SGPT) 18U/L (0-32) Alkaline Phosphatase 92U/L (25-150) Total Protein 7.8g/dL (6.4-8.4) Albumin 4.4g/dL (3.4-5.0) Lipase 32U/L (13-60) Hold Alvarado Top Tube Received (Received) Hold Urine Received (Received) Lab Results Interpretation: Mildly elevated white blood count CT Abd / Pelvis Interpretation CONCLUSION: 1. Normal appedix. No free air, abscess, or bowel obstruction. 2. Liquid density stool with air fluid levels throughout the colon consistent with malabsorption/diarrhea. This may related to nonspecific enteritis although no gross bowel wall thickening is appreciated. Correlate with patient's symptoms. Interpretation / Wet Read by: Interpret - Radiologist Re-Eval/Medical Decision Med Decision/Clinical Course 42-year-old female who has diffuse abdominal pain, despite her chronic Vicodin pain medication. There has been no diarrhea. Laboratory is unremarkable with the exception of a mildly elevated white blood count. Her CT imaging shows some distended loops of bowel with liquid stool but no evidence of significant enteritis-type inflammation. She is being discharged home. She will continue her present pain medications. She will follow up with her primary doctor if she has diarrhea, especially if bloody or associated with fever. Source of Hx: Old records Re-Evaluation/Progress : Time of Eval: 00:02 Patient Status: Condition improved Re-Evaluation/Progress Note: Pt rechecked, who is resting comfortably. CT results are discussed. The diagnosis and plan for discharge are discussed. The pt understands and agrees with the plan. All questions are addressed at this time. Counseled Regarding: Diagnosis, Lab results, Need for follow-up, When/why to return to ED Discharge & Departure Primary Impression: Abdominal pain Abdominal location: right lower quadrant Qualified Code: R10.31 - Right lower quadrant pain Disposition: Home Discharge Condition All VS Reviewed: Yes Condition: Stable Patient Instructions: Acute Abdominal Pain (ED) Additional Instructions: The CT shows no surgical or serious illness. There are loops of bowel filled with liquid stool. This could be from a viral infection, from a foodborne illness, or from bowel obstruction. He will likely develop diarrhea. That will need to be tested, especially if it is bloody. Take your pain medicine as needed for pain. This will also help with the cramping. Follow up with your primary provider in the next couple days ago per minute persistent symptoms. Call me at [phone] between the hours of 9 PM and 6 AM for the next couple of days as needed for any questions or concerns. Referrals: Raz Thibodeaux DO (PCP) Scribe Attestation Portions of this note were transcribed by Martina Hardy. I, Dr. Ly personally performed the history, physical exam and medical decision-making; I reviewed and confirmed the accuracy of the information in the transcribed note. copies to: Raz Thibodeaux Howard L MD Jan 17, 2017 22:24 MARTINA HARDY Jan 17, 2017 23:02
[2017-01-17] MEDS ORDERED: 0.9% Sodium Chloride 1,000 ML IV ONE (22:32)
[2017-01-17] MEDS ORDERED: Ondansetron 2 mg/mL 2 mL Inj IVPUSH PRN (22:35)
[2017-01-17] MEDS: HYDROmorphone 0.5 mg/0.5 mL iSecure Syringe IVPUSH PRN ×2 (22:55→23:29)
[2017-01-18 00:29] VITALS: BP 116/69; PULSE 89; O2SAT 96
--- NOTE | 2017-01-18 07:47 | DRSVH ---
PROCEDURE: CT ABDOMEN AND PELVIS WITH CONTRAST ([id number]) INDICATIONS: RLQ abd pain, elev wbc TECHNIQUE: After the administration of intravenous contrast, 5 mm thick sections acquired from the diaphragm to the symphysis. 5 mm coronal and sagittal reformats were acquired. For radiation dose reduction, the following was used: automated exposure control, adjustment of mA and/or kV according to patient siz e. COMPARISON: None. FINDINGS: Image quality: Excellent. ABDOMEN: Lung bases: Lung bases are clear. Heart size is normal. Solid organs: Liver and spleen are normal in size and enhancement. Gallbladder has been removed. B iliary system is non dilated. Pancreas enhances normally. No adrenal nodules. Kidneys demonstrate normal size and enhancement, without hydronephrosis. Peritoneum and bowel: Bowel loops demonstrate normal wall thickness and caliber. No free fluid or a ir. The appendix is normal. Nodes and vessels: No retroperitoneal or mesenteric adenopathy by size criteria. Aorta and inferior vena cava are normal in size. Miscellaneous: No ventral hernias. PELVIS: Genitourinary: Bladder wall thickness is normal. Uterus and ovaries are considered grossly normal. Miscellaneous: No inguinal hernias or adenopathy. Bones: No suspicious bony lesions. No vertebral body compression fractures. IMPRESSION: 1. No cause for abdominal pain is seen. 2. Liquid feces/stool throughout colon. It is evidence to suggest a gastroenteritis/diarrhea. Dictated by: Joon Bennett M.D. on 01/18/2017 at 7:41 this report corresponds to the findings of the preliminary NSR report. Approved by: Joon Bennett M.D. on 01/18/2017 at 7:45
== END 2017-01-18 00:19 | disposition home or self-care (01) ==
LOC: SED 20:30
DX: R10.31 Right lower quadrant pain (principal); I10 Essential (primary) hypertension; E78.5 Hyperlipidemia, unspecified; K21.9 Gastro-esophageal reflux disease without esophagitis; F43.10 Post-traumatic stress disorder, unspecified; Z88.0 Allergy status to penicillin; Z88.1 Allergy status to other antibiotic agents; Z88.2 Allergy status to sulfonamides; Z91.030 Bee allergy status
CPT/HCPCS: 36415; 74177; 80053; 81025; 83690; 83735; 85025; 96361; 96374; 96375; 99285; J1170; J2405; J7030; Q9967